=== PATIENT | female | born 1930 | race Caucasian/White ===

== ENCOUNTER 2018-05-13 13:23 | Emergency (ER) | payer OTHER ==
--- NOTE | 2018-05-13 14:18 | RAD REPORT ---
EXAM DESCRIPTION: CT - Ct Stroke Brain Wo Cont - 05/13/2018 2:08 pm CLINICAL HISTORY: off balance/fall x 3 Headache, drowsiness, CVA COMPARISON: No comparisons TECHNIQUE: All CT scans are performed using dose optimization technique as appropriate and may inclu de automated exposure control or mA/KV adjustment according to patient size. FINDINGS: No intracranial hemorrhage, hydrocephalus or extra-axial fluid collection.Mild generalized brain atrophy is present with mild periventricular and deep white matter chronic microvascular ische cayetano changes.No areas of brain edema or evidence of midline shift. The paranasal sinuses and mastoids are clear. The calvarium is intact. IMPRESSION: No acute intracranial abnormality. The findings were discussed with Arcadio Miles in the ER on 05/13/2018 at 2:13 p.m. by telephone.
--- NOTE | 2018-05-13 14:37 | RAD REPORT ---
EXAM DESCRIPTION: RAD - Chest Single View - 05/13/2018 2:30 pm CLINICAL HISTORY: weakness Chest pain. COMPARISON: No comparisons FINDINGS: Portable technique limits examination quality. The lungs are grossly clear. The heart is mildly enlarged in size. No displaced fractures.Aortic athe rosclerosis. IMPRESSION: No acute intrathoracic process suspected.
[2018-05-13 15:04] LABS: Absolute Monocytes 0.9 K/uL (0.1-1.3); Absolute Neutrophil 3.8 K/uL (1.8-8.0); Basophils % 0.9 % (0-1.3); Hematocrit 35.1 % (36.0-45.0); Lymphocytes % 28.3 % (15.3-44.8); MPV 9.7 fL (7.6-11.3); Monocytes % 13.3 % (3.3-12.3); RBC Red Blood Cell Count 4.02 M/uL (3.86-4.86)
[2018-05-13 15:08] LABS: Protime INR 0.89
[2018-05-13 15:10] LABS: Urine Blood NEGATIVE (NEG); Urine Glucose NEGATIVE (NEG); Urine Protein 1+ (NEG)
[2018-05-13 15:22] LABS: BUN Blood Urea Nitrogen 35 mg/dL (7-18); Bicarbonate 27 mmol/L (21-32); CKMB Creatine Kinase MB 3.1 ng/mL (0.3-3.6); Creatine Phosphokinase 81 U/L (26-192); Glucose Level 94 mg/dL (74-106); Magnesium 2.3 mg/dL (1.8-2.4); Potassium 4.2 mmol/L (3.5-5.1); Sodium Level 139 mmol/L (136-145); Troponin (Emerg Dept Use Only) < 0.02 ng/mL (0.0-0.045)
[2018-05-13 15:24] LABS: Urine Bacteria <20 /HPF (<20); Urine Culture Reflex Order NOT NEEDED; Urine RBC NONE SEEN /HPF (NONE SEEN)
[2018-05-13] MEDS ORDERED: NA CHLORIDE 0.9% 250 ML ONE (16:06)
--- NOTE | 2018-05-13 16:44 | EDPHYS ---
Physician Documentation [facility] Name: Crista Ivy Age: 87 yrs Sex: Female : 1930 Arrival Date: 05/13/2018 Time: 13:29 Bed 24 Private MD: ED Physician Bertram Griffith HPI: 05/13 13:52 This 87 yrs old Female presents to ER via Ambulatory with complaints of Fall snw Injury, Dizziness. 13:52 The patient has elevated blood pressure and discovered this at home. Onset: The snw symptoms/episode began/occurred this morning. Modifying factors: The symptoms are aggravated by activity. Details of fall: The patient fell from an upright position, while walking. Onset: The symptoms/episode began/occurred suddenly, this morning. Associated injuries: The patient sustained no obvious injury. Associated signs and symptoms: Pertinent positives: weakness. Severity of symptoms: At their worst the symptoms were mild, moderate. Severity of symptoms: At its worst the blood pressure was 200 mm Hg. The patient has not experienced similar symptoms in the past. It is unknown whether or not the patient has recently seen a physician. Historical: - Allergies: 13:32 No Known Allergies; aa5 - PMHx: 13:32 Hypertension; Hyperlipidemia; TIA; aa5 - PSHx: 13:32 None; aa5 - Immunization history:: Flu vaccine is not up to date. - Ebola Screening: : No symptoms or risks identified at this time. - Social history:: Smoking status: unknown. ROS: 13:52 Constitutional: Negative for fever, chills, and weight loss, Eyes: Negative for injury, snw pain, redness, and discharge, ENT: Negative for injury, pain, and discharge, Neck: Negative for injury, pain, and swelling, Cardiovascular: Negative for chest pain, palpitations, and edema, Respiratory: Negative for shortness of breath, cough, wheezing, and pleuritic chest pain, Abdomen/GI: Negative for abdominal pain, nausea, vomiting, diarrhea, and constipation, Back: Negative for injury and pain, : Negative for injury, bleeding, discharge, and swelling, MS/Extremity: Negative for injury and deformity, Skin: Negative for injury, rash, and discoloration. 13:52 Neuro: Positive for gait disturbance, weakness, fall x 3. Exam: 13:52 Constitutional: This is a well developed, well nourished patient who is awake, alert, snw and in no acute distress. Head/Face: Normocephalic, atraumatic. Eyes: Pupils equal round and reactive to light, extra-ocular motions intact. Lids and lashes normal. Conjunctiva and sclera are non-icteric and not injected. Cornea within normal limits. Periorbital areas with no swelling, redness, or edema. ENT: Nares patent. No nasal discharge, no septal abnormalities noted. Tympanic membranes are normal and external auditory canals are clear. Oropharynx with no redness, swelling, or masses, exudates, or evidence of obstruction, uvula midline. Mucous membranes moist. Neck: Trachea midline, no thyromegaly or masses palpated, and no cervical lymphadenopathy. Supple, full range of motion without nuchal rigidity, or vertebral point tenderness. No Meningismus. Chest/axilla: Normal chest wall appearance and motion. Nontender with no deformity. No lesions are appreciated. Cardiovascular: Regular rate and rhythm with a normal S1 and S2. No gallops, murmurs, or rubs. Normal PMI, no JVD. No pulse deficits. Respiratory: Lungs have equal breath sounds bilaterally, clear to auscultation and percussion. No rales, rhonchi or wheezes noted. No increased work of breathing, no retractions or nasal flaring. Abdomen/GI: Soft, non-tender, with normal bowel sounds. No distension or tympany. No guarding or rebound. No evidence of tenderness throughout. Back: No spinal tenderness. No costovertebral tenderness. Full range of motion. Skin: Warm, dry with normal turgor. Normal color with no rashes, no lesions, and no evidence of cellulitis. MS/ Extremity: Pulses equal, no cyanosis. Neurovascular intact. Full, normal range of motion. 13:52 Neuro: Orientation: appropriate for stated age, Mentation: appropriate for stated age, Memory: appropriate for stated age, Cerebellar function: heel to tenorio testing is normal, Motor: is normal, Gait: not tested. Babinski testing is normal, seizure activity, is not displayed by the patient. Vital Signs: 13:33 BP 168 / 67; Pulse 58; Resp 18 S; Temp 98.2(TE); Pulse Ox 97% on R/A; aa5 14:25 BP 152 / 84; Pulse 54; Resp 19; Pulse Ox 99% on R/A; ca1 15:19 BP 153 / 76; Pulse 53; Resp 19; Pulse Ox 95% on R/A; ca1 16:02 BP 159 / 73; Pulse 57; Resp 19; Pulse Ox 99% on R/A; ca1 16:32 BP 183 / 79; Pulse 54; Resp 19; Pulse Ox 100% on R/A; ca1 17:05 BP 164 / 88; Pulse 57; Resp 19; Pulse Ox 97% on R/A; ca1 NIH Stroke Scale Scores: 13:55 NIHSS Score: 0 snw [place] Coma Score: 13:55 Eye Response: spontaneous(4). Verbal Response: oriented(5). Motor Response: obeys snw commands(6). Total: 15. MDM: 13:32 Patient medically screened. snw 13:55 Data reviewed: vital signs, nurses notes. Data interpreted: Pulse oximetry: on room air snw is 97 %. Interpretation: normal. 05/13 13:52 Order name: Ckmb [facility] 05/13 13:52 Order name: CPK [facility] 05/13 13:52 Order name: Magnesium [facility] 05/13 13:52 Order name: Troponin (emerg Dept Use Only) [facility] 05/13 13:52 Order name: Basic Metabolic Panel; Complete Time: 15:39 snw 05/13 13:52 Order name: CBC with Diff; Complete Time: 15:39 w 05/13 13:52 Order name: Protime (+inr); Complete Time: 15:39 snw 05/13 13:52 Order name: Ptt, Activated; Complete Time: 15:39 snw 05/13 13:52 Order name: Urine Culture [facility] 05/13 13:52 Order name: Urine Microscopic Only; Complete Time: 15:39 snw 05/13 13:52 Order name: Blood Culture* [facility] 05/13 13:52 Order name: CKMB Creatine Kinase MB; Complete Time: 15:39 EDMS 05/13 13:52 Order name: Creatine Phosphokinase; Complete Time: 15:39 EDMS 05/13 13:52 Order name: Magnesium; Complete Time: 15:39 EDMS 05/13 13:52 Order name: CT Stroke Brain w/o Contrast; Complete Time: 14:27 snw 05/13 13:52 Order name: Stroke CXR 1 View; Complete Time: 14:41 snw 05/13 13:52 Order name: EKG; Complete Time: 13:53 snw 05/13 13:52 Order name: Accucheck; Complete Time: 14:07 snw 05/13 13:52 Order name: Cardiac monitoring; Complete Time: 14:07 snw 05/13 13:52 Order name: EKG - Nurse/Tech; Complete Time: 14:07 snw 05/13 13:52 Order name: IV Saline Lock; Complete Time: 14:07 snw 05/13 13:52 Order name: Labs collected and sent; Complete Time: 15:12 snw 05/13 13:52 Order name: NPO; Complete Time: 14:07 snw 05/13 13:52 Order name: O2 Per Protocol; Complete Time: 14:07 snw 05/13 13:52 Order name: O2 Sat Monitoring; Complete Time: 14:07 snw 05/13 13:52 Order name: Cath; Complete Time: 15:12 snw 05/13 13:52 Order name: Troponin (Emerg Dept Use Only); Complete Time: 15:39 EDMS 05/13 14:42 Order name: Glucose, Ancillary Testing; Complete Time: 14:45 EDMS 05/13 15:00 Order name: Urine Dipstick--Ancillary (enter results); Complete Time: 15:39 kj1 05/13 13:52 Order name: Urine Dipstick-Ancillary (obtain specimen); Complete Time: 15:12 snw 05/13 13:52 Order name: FSBS; Complete Time: 14:08 snw Administered Medications: 15:56 Drug: NS 0.9% 250 ml Route: IV; Rate: bolus; Site: right antecubital; ca1 16:30 Follow up: Urine output 130 ml; Response: No adverse reaction; IV Status: Completed ca1 infusion Disposition: 05/14 07:14 Co-signature as Attending Physician, Bertram Griffith MD I agree with the assessment and kdr plan of care. Disposition: 05/13/18 16:44 Discharged to Home. Impression: Fall on same level, unspecified, Renal insufficiency. - Condition is Stable. - Discharge Instructions: Dehydration, Elderly, Fall Prevention in the Home, Rehydration, Elderly. - Medication Reconciliation Form, Thank You Letter, Antibiotic Education, Prescription Opioid Use form. - Follow up: Private Physician; When: 2 - 3 days; Reason: Recheck today's complaints, Continuance of care, Re-evaluation by your physician. Follow up: Emergency Department; When: As needed; Reason: Worsening of condition. NIH Stroke Scale - NIH Stroke Score Date: 05/13/2018 Time: 13:55 Total Score = 0 1a. Level of Consciousness (LOC) - 0(Alert) 1b. Level of Consciousness (LOC) (Year \T\ Age) - 0(Both) 1c. LOC Commands (Open \T\ Closes Eyes/Mobile Home Park Manager) - 0(Both) 2. Best Gaze (Lateral Gaze Paresis) - 0(Normal) 3. Visual Field Loss - 0(No visual loss) 4. Facial Palsy - 0(Normal) 5a. Left Arm: Motor (10-second hold) - 0(No drift) 5b. Right Arm: Motor (10-second hold) - 0(No drift) 6a. Left Leg: Motor (5-second hold - always test supine) - 0(No drift) 6b. Right Leg: Motor (5-second hold - always test supine) - 0(No drift) 7. Limb Ataxia (finger/nose \T\ heel/tenorio - test with eyes open) - 0(Absent) 8. Sensory Loss (pinprick arms/legs/face) - 0(Normal) 9. Best Language: Aphasia (description/naming/reading) - 0(No aphasia) 10. Dysarthria (speech clarity - read or repeat words) - 0(Normal) 11. Extinction and Inattention (visual/tactile/auditory/spatial/personal) - 0(No abnormality) Initials: snw Signatures: Dispatcher [employer] EDMS Bertram Griffith MD MD kdr Ashely Ball, IT SERVICE TECHNICIAN-C IT SERVICE TECHNICIAN-Csnw Carmen Perez, RN RN aa5 Nanci Chung RN RN ca1 Corrections: (The following items were deleted from the chart) 05/13 17:45 16:44 05/13/2018 16:44 Discharged to Home. Impression: Fall on same level, ca1 unspecified; Renal insufficiency. Condition is Stable. Forms are Medication Reconciliation Form, Thank You Letter, Antibiotic Education, Prescription Opioid Use. Follow up: Private Physician; When: 2 - 3 days; Reason: Recheck today's complaints, Continuance of care, Re-evaluation by your physician. Follow up: Emergency Department; When: As needed; Reason: Worsening of condition. snw
--- NOTE | 2018-05-13 16:44 | ER ---
Nurse's Notes [facility] Name: Crista Ivy Age: 87 yrs Sex: Female : 1930 Arrival Date: 05/13/2018 Time: 13:29 Bed 24 Private MD: Diagnosis: Fall on same level, unspecified;Renal insufficiency Presentation: 05/13 13:32 Presenting complaint: Patient states: "I woke up dizzy today and I fell three times aa5 today". Pt denies LOC, denies head injury. 13:32 Care prior to arrival: None. Mechanism of Injury: Fall from standing position. Trauma aa5 event details: Injury occurred in the [facility], Injury occurred: at home. Injury occurred: May 13, 2018. 13:32 Acuity: RENETTA 3 aa5 13:32 Method Of Arrival: Ambulatory aa5 13:32 Transition of care: patient was not received from another setting of care. Onset of aa5 symptoms was May 13, 2018. 13:44 Initial Sepsis Screen: Does the patient meet any 2 criteria? No. Patient's initial ca1 sepsis screen is negative. Does the patient have a suspected source of infection? No. Patient's initial sepsis screen is negative. 13:44 Risk Assessment: Do you want to hurt yourself or someone else? Patient reports no ca1 desire to harm self or others. Historical: - Allergies: 13:32 No Known Allergies; aa5 - PMHx: 13:32 Hypertension; Hyperlipidemia; TIA; aa5 - PSHx: 13:32 None; aa5 - Immunization history:: Flu vaccine is not up to date. - Ebola Screening: : No symptoms or risks identified at this time. - Social history:: Smoking status: unknown. Screenin:44 Abuse screen: Denies threats or abuse. Denies injuries from another. Nutritional ca1 screening: No deficits noted. Tuberculosis screening: No symptoms or risk factors identified. Fall Risk Fall in past 12 months (25 points). IV access (20 points). Ambulatory Aid- Crutches/Cane/Walker (15 pts). Assessment: 13:44 General: Appears in no apparent distress. comfortable, Behavior is calm, cooperative, ca1 appropriate for age. Pain: Denies pain. Neuro: Level of Consciousness is awake, alert, obeys commands, Oriented to person, place, time, situation, Reports dizziness, this morning. Neuro: Shoe Worker are equal bilaterally Moves all extremities. Speech is normal, Facial symmetry appears normal, Pupils are PERRLA, Intact. Cardiovascular: Heart tones S1 S2 present Capillary refill < 3 seconds Patient's skin is warm and dry. Respiratory: Airway is patent Respiratory effort is even, unlabored, Respiratory pattern is regular, symmetrical, Breath sounds are clear bilaterally. GI: Abdomen is round non-distended, Bowel sounds present X 4 quads. Abd is soft and non tender X 4 quads. Abd is non tender X 4 quads. : No deficits noted. No signs and/or symptoms were reported regarding the genitourinary system. EENT: No deficits noted. No signs and/or symptoms were reported regarding the EENT system. Derm: Skin is intact, is healthy with good turgor, Skin is pink, warm \\T\\ dry. Musculoskeletal: Circulation, motion, and sensation intact. Capillary refill < 3 seconds. 14:10 Reassessment: [facility] at [facility] 14:25 Reassessment: Patient appears in no apparent distress at this time. Patient and/or ca1 family updated on plan of care and expected duration. Pain level reassessed. Patient is alert, oriented x 3, equal unlabored respirations, skin warm/dry/pink. Pt back from CT scan. 14:55 Reassessment: Patient appears in no apparent distress at this time. Patient and/or ca1 family updated on plan of care and expected duration. Pain level reassessed. Patient is alert, oriented x 3, equal unlabored respirations, skin warm/dry/pink. Ashely Ball, SENIOR WRITER at bedside. Pt with daughters at bedside. 16:32 Reassessment: Assisted pt to ambulate around room with a cane. Pt requested to go to ca1 restroom, ambulated with assist to restroom and back to bed. Pt tolerated well, did NOT complain of dizziness during ambulation. Pt reported of weakness than usual today. Pt reported of diarrhea 2-3 days ago which wasted 2.5 days and described stool as soft and a little watery. Informed provider. 17:00 Reassessment: Patient appears in no apparent distress at this time. Patient and/or ca1 family updated on plan of care and expected duration. Pain level reassessed. Patient is alert, oriented x 3, equal unlabored respirations, skin warm/dry/pink. Informed pt of discharge. Instructed to call daughters. Will give discharge papers once daughters are back. 17:30 Reassessment: Patient appears in no apparent distress at this time. No changes from ca1 previously documented assessment. Patient is alert, oriented x 3, equal unlabored respirations, skin warm/dry/pink. Still waiting on daughter. Vital Signs: 13:33 BP 168 / 67; Pulse 58; Resp 18 S; Temp 98.2(TE); Pulse Ox 97% on R/A; aa5 14:25 BP 152 / 84; Pulse 54; Resp 19; Pulse Ox 99% on R/A; ca1 15:19 BP 153 / 76; Pulse 53; Resp 19; Pulse Ox 95% on R/A; ca1 16:02 BP 159 / 73; Pulse 57; Resp 19; Pulse Ox 99% on R/A; ca1 16:32 BP 183 / 79; Pulse 54; Resp 19; Pulse Ox 100% on R/A; ca1 17:05 BP 164 / 88; Pulse 57; Resp 19; Pulse Ox 97% on R/A; ca1 [place] Coma Score: 13:55 Eye Response: spontaneous(4). Verbal Response: oriented(5). Motor Response: obeys snw commands(6). Total: 15. NIH Stroke Scale Scores: 13:55 NIHSS Score: 0 snw ED Course: 13:29 Patient arrived in ED. mr 13:30 Nanci Chung, RN is Primary Nurse. ca1 13:30 Ashely Ball FNP-C is PHCP. snw 13:30 Bertram Grififth MD is Attending Physician. snw 13:31 Arm band placed on Patient placed in an exam room, on a stretcher. aa5 13:37 Triage completed. aa5 13:44 Patient has correct armband on for positive identification. Placed in gown. Bed in low ca1 position. Call light in reach. Side rails up X 1. equipment monitor phototypesetting on. Pulse ox on. NIBP on. Warm blanket given. 14:06 Ckmb Sent. jp3 14:06 CPK Sent. jp3 14:07 Magnesium Sent. jp3 14:08 CT completed. Patient tolerated procedure well. Patient moved to CT via stretcher. sj Patient moved back from CT. 14:09 CT Stroke Brain w/o Contrast In Process Unspecified. EDMS 14:29 X-ray completed. Patient tolerated procedure well. Patient moved to radiology via sw stretcher. Patient moved back from radiology. 14:30 Stroke CXR 1 View In Process Unspecified. EDMS 14:32 Inserted saline lock: 20 gauge in right antecubital area, using aseptic technique. ca1 Blood collected. 14:32 First set of blood cultures drawn by me. ca1 14:50 Urine collected: straight cath specimen, clear, Amount Returned: 120mL. ca1 14:50 Straight cath inserted, using sterile technique, 16 Fr. Specimen obtained. Returned ca1 clear yellow urine. Patient tolerated well. 14:55 Second set of blood cultures drawn by me. ca1 16:04 No provider procedures requiring assistance completed. ca1 17:40 IV discontinued, intact, bleeding controlled, No redness/swelling at site. Pressure ca1 dressing applied. Administered Medications: 15:56 Drug: NS 0.9% 250 ml Route: IV; Rate: bolus; Site: right antecubital; ca1 16:30 Follow up: Urine output 130 ml; Response: No adverse reaction; IV Status: Completed ca1 infusion Output: 16:30 Urine: 130ml; Total: 130ml. ca1 Outcome: 16:44 Discharge ordered by . snw 17:40 Discharged to home via wheelchair, with family, daughter ca1 17:40 Condition: stable 17:40 Discharge instructions given to patient, family, Instructed on discharge instructions, follow up and referral plans. Demonstrated understanding of instructions, follow-up care. 17:45 Patient left the ED. ca1 NIH Stroke Scale - NIH Stroke Score Date: 05/13/2018 Time: 13:55 Total Score = 0 1a. Level of Consciousness (LOC) - 0(Alert) 1b. Level of Consciousness (LOC) (Year \\T\\ Age) - 0(Both) 1c. LOC Commands (Open \\T\\ Closes Eyes/Miner Operator) - 0(Both) 2. Best Gaze (Lateral Gaze Paresis) - 0(Normal) 3. Visual Field Loss - 0(No visual loss) 4. Facial Palsy - 0(Normal) 5a. Left Arm: Motor (10-second hold) - 0(No drift) 5b. Right Arm: Motor (10-second hold) - 0(No drift) 6a. Left Leg: Motor (5-second hold - always test supine) - 0(No drift) 6b. Right Leg: Motor (5-second hold - always test supine) - 0(No drift) 7. Limb Ataxia (finger/nose \\T\\ heel/tenorio - test with eyes open) - 0(Absent) 8. Sensory Loss (pinprick arms/legs/face) - 0(Normal) 9. Best Language: Aphasia (description/naming/reading) - 0(No aphasia) 10. Dysarthria (speech clarity - read or repeat words) - 0(Normal) 11. Extinction and Inattention (visual/tactile/auditory/spatial/personal) - 0(No abnormality) Initials: snw Signatures: Dispatcher [employer] EDMS Ashely Ball, LIBRARY TECHNICIAN-C LIBRARY TECHNICIAN-Csnw Smitha Clark, Carmen Little, RN RN [email or web address] Brandi Fernández Jacob jp3 Nanci Chung RN RN ca1 Corrections: (The following items were deleted from the chart) 15:02 14:32 First set of blood cultures drawn ca1 ca1
--- NOTE | 2018-05-13 17:07 | EKG ---
Test Date: 2018-05-13 Test Time: 13:41:57 Teradata Architect: KENDRICK MEASUREMENT RESULTS: Intervals: Rate: 54 TN: 176 QRSD: 84 QT: 432 QTc: 409 [place]: P: 51 TN: 176 QRS: 37 T: 4 INTERPRETIVE STATEMENTS: Sinus bradycardia Inferior infarct, age undetermined Abnormal ECG No previous ECG available for comparison Electronically Signed On 05-13-18 17:06:34 CDT by Mars Desai
== END 2018-05-13 17:45 | disposition home or self-care (01) ==
LOC: ER 13:23
DX: N28.9 Disorder of kidney and ureter, unspecified (principal); W18.30XA Fall on same level, unspecified, initial encounter; Y93.01 Activity, walking, marching and hiking; R42 Dizziness and giddiness; I10 Essential (primary) hypertension; E78.5 Hyperlipidemia, unspecified; Z86.73 Personal history of transient ischemic attack (TIA), and cerebral infarction without residual deficits
CPT/HCPCS: 36415; 51702; 70450; 71045; 80048; 81003; 81015; 82550; 82553; 82962; 83735; 84484; 85025; 85610; 85730; 87040; 87086; 87088; 93005; 96360; 96365; 99285

== ENCOUNTER 2019-10-10 11:11 | Inpatient (IN) | payer MEDICARE, OTHER ==
--- OUTSIDE RECORDS SUMMARY | 2019-10-10 11:30 | XMS REPORT | Continuity of Care Document ---
:1930 Author Organization [facility] t Address [facility] [place] [address] Care Team Providers Name Role Phone SVEN DEREK Attending Clinician Unavailable Problems This patient has no known problems. Allergies, Adverse Reactions, Alerts This patient has no known allergies or adverse reactions. Social History Social Habit Start Date Stop Date Quantity Comments Source Sex Assigned At [facility] Alcohol Comment 2018-09-07 2018-09-07 Every other day [facility] - 00:00:00 00:00:00 [facility] Smoking Status Start Date Stop Date Source Never smoker [facility] Medications Ordered Filled Start Stop Current Ordering Indication Dosage Frequency Signature Comments Components Source Medication Medication Date Date Medication? Clinician (SIG) Name Name coenzyme 2019 Yes 1{capsu QD Take [address] [facility] Q10 (CO 7-16 le} capsule by [facility]) 200 21:14: mouth Medical mg capsule 37 daily. Kamrar omega-3 Yes 1{capsu QD Take 1 [facility] fatty 7-16 le} capsule by kes acids-fish 21:14: mouth Medica l oil (FISH 36 daily. Kamrar OIL) 360-1,200 mg Cap allopurinol Yes 100mg QD Take [address] [facility] (ZYLOPRIM) 7-16 mg by [facility] - 100 MG 21:06: mouth Medical tablet 27 daily. [facility] furosemide Yes 20mg QD Take [address] [facility] (LASIX) 20 7-16 by mouth [facility] - MG tablet 00:00: daily. Medica l 00 Kamrar potassium 2018- Yes 10meq QD Take [address] [facility] chloride SA 7-16 mEq by [facility] - (K-DUR,KLOR 00:00: mouth Medic al -CON) 10 00 daily. Kamrar MEQ tablet gabapentin Yes 100mg QD Take [address] [facility] [address] [facility] (NEURONTIN) 6-12 mg by [facility] - 100 MG 00:00: mouth Medical capsule 00 daily. [facility] ezetimibe 0 Yes 10mg QD Take [address] [facility] [address] [facility] (ZETIA) 10 5-06 by mouth [facility] - mg tablet 00:00: daily. Medica l 00 [facility] amLODIPine Yes 5mg QD Take [address] [facility] [address] [facility] (NORVASC) 5 5-02 by mouth [facility] - MG tablet 00:00: daily. Medica l 00 [facility] hydroCHLORO 0 Yes 25mg QD Take [address] [facility] thiazide 5-02 by mouth [facility] - (HYDRODIURI 00:00: daily. Medi tari L) 25 MG 00 Center tablet hydrALAZINE 0 Yes 10mg Q.5D Take [address] [facility] (APRESOLINE 3-03 by mouth 2 Sven kes - ) 10 MG 00:00: (two) Medical tablet 00 times Center daily. metoprolol Yes 100mg QD Take [address] [facility] [address] [facility] (TOPROL-XL) 3-03 mg by [facility] - 100 MG 24 00:00: mouth Medical hr tablet 00 daily. [facility] cloNIDine Yes .1mg Take 0.[address] [facility] HCl 7-06 mg by [facility] - (CATAPRES) 00:00: mouth as Med ical 0.1 MG 00 needed. Kamrar tablet colchicine 0 Yes .6mg Take 0.[address] [facility] (COLCRYS) 3-06 mg by [facility] - 0.6 mg 00:00: mouth as Medical tablet 00 needed. Center Procedures This patient has no known procedures. Results Test Description Test Time Test Comments Results Result [facility] e Comments VENOUS DOPPLER 2018-09-07 Reason for FINAL REPORT PATIENT LEGS, BILATERAL 23:17:00 exam:->LEG ID: [id number] SWELLING EXAMINATION: BILATERAL LOWER EXTREMITY VENOUS DUPLEX/DOPPLER CLINICAL INDICATION: LEG PAIN AND SWELLING. TECHNIQUE: Grayscale, color flow and Doppler spectral imaging of the lower extremity veins with compression and augmentation FINDINGS: Right lower extremity: Doppler evaluation demonstrates patent deep veins where visible with normal color flow, compression and augmentation. No evidence of a deep venous thrombosis where imaged. Left lower extremity: Doppler evaluation demonstrates patent deep veins where visible with normal color flow, compression and augmentation. No evidence of a deep venous thrombosis where imaged. IMPRESSION: No sonographic evidence of a lower extremity DVT. Signed: Flako Cabrera MDReport Verified Date/Time: 09/07/2018 23:17:28 Reading Location: [address] Reading Room /APTT 2018-09-07 22:00:00 Test Item Value Reference Range Interpretation Comme nts PROTIME (BEAKER) (test code = 759) 9.8 sec 9.3-12.0 INR (BEAKER) (test code = 370) 0.9 <=5.9 PARTIAL THROMBOPLASTIN TIME (BEAKER) (test code = 760) 25.6 sec 23.0-35.0 RECOMMENDED COUMADIN/WARFARIN INR THERAPY RANGESSTANDARD DOSE: 2.0 - 3.0 Includes: PROPHYLAXIS forvenous thrombosis, systemic embolization; TREATMENT for venous thrombosis and/or pulmonary embolus.HIGH RISK: Target INR is 2.5-3.5 for patients with mechanical heart valves.Final Information (Auto Output)Final Information (Auto Output)Final Information (Auto Output)B-TYPE NATRIURETIC FACTOR (BNP)2018-09-07 21:57:00 Test Item Value Reference Range Interpretation Comments B-TYPE NATRIURETIC PEPTIDE (BEAKER) 148 pg/mL 0-100 H (test code = 700) TROPONIN [id number] 21:56:00 Test Item Value Reference Range Interpretation Comments TROPONIN I (BEAKER) (test code = 397) < ng/mL 0.00-0.15 Troponin I (TnI) levels must be interpreted in the context of the presenting symptoms and the clinical findings. Elevated TnI levels indicate myocardial damage, but are not specific for ischemic heart disease. Elevated TnI levels are seen in patients with other cardiac conditions (including myocarditis and congestive heart failure), and slight TnI elevations occur in patients with other conditions, including sepsis, renal failure, acidosis, acute neurological disease, and persistent tachyarrhythmia.COMPREHENSIVE METABOLIC [id number] 21:51:00 Test Item Value Reference Range Interpretation Comments TOTAL PROTEIN 7.6 gm/dL 6.0-8.5 (BEAKER) (test code = 770) ALBUMIN (BEAKER) 4.2 g/dL 3.5-5.0 (test code = 1145) ALKALINE PHOSPHATASE 92 U/L 30-115 (BEAKER) (test code = 346) BILIRUBIN TOTAL 0.4 mg/dL 0.1-1.2 (BEAKER) (test code = 377) SODIUM (BEAKER) 138 meq/L 135-148 (test code = 381) POTASSIUM (BEAKER) 4.2 meq/L 3.6-5.5 (test code = 379) CHLORIDE (BEAKER) 101 meq/L 98-106 (test code = 382) CO2 (BEAKER) (test 23 meq/L 20-29 code = 355) BLOOD UREA NITROGEN 46 mg/dL 10-26 H (BEAKER) (test code = 354) CREATININE (BEAKER) 2.52 mg/dL 0.50-1.20 H (test code = 358) GLUCOSE RANDOM 115 mg/dL 70-110 H (BEAKER) (test code = 652) CALCIUM (BEAKER) 9.9 mg/dL 8.5-10.5 (test code = 697) AST (SGOT) (BEAKER) 23 U/L 5-40 (test code = 353) ALT (SGPT) (BEAKER) 19 U/L 5-50 (test code = 347) EGFR (BEAKER) (test mL/min/1.73 INSUFFIC IENT code = 1092) sq m CLINICAL DATA T O CALCULATE ESTIM ATED GFR. CBC W/PLT COUNT & AUTO [id number] 21:28:00 Test Item Value Reference Range Interpretation Comments WHITE BLOOD CELL COUNT (BEAKER) 10.0 K/ L 4.0-10.0 (test code = 775) RED BLOOD CELL COUNT (BEAKER) 3.96 M/ L 4.00-5.00 L (test code = 761) HEMOGLOBIN (BEAKER) (test code = 11.1 GM/DL 12.0-15.5 L 410) HEMATOCRIT (BEAKER) (test code = 35.1 % 36.0-46.0 L 411) MEAN CORPUSCULAR VOLUME (BEAKER) 88.6 fL 82.0-99.0 (test code = 753) MEAN CORPUSCULAR HEMOGLOBIN 28.0 pg 27.0-33.0 (BEAKER) (test code = 751) MEAN CORPUSCULAR HEMOGLOBIN CONC 31.6 GM/DL 32.0-36.0 L (BEAKER) (test code = 752) RED CELL DISTRIBUTION WIDTH 15.8 % 12.0-15.0 H (BEAKER) (test code = 412) PLATELET COUNT (BEAKER) (test 299 K/CU MM 150-430 code = 756) MEAN PLATELET VOLUME (BEAKER) 11.0 fL 6.0-11.5 (test code = 754) NUCLEATED RED BLOOD CELLS 0 /100 WBC 0-0 (BEAKER) (test code = 413) NEUTROPHILS RELATIVE PERCENT 59 % (BEAKER) (test code = 429) LYMPHOCYTES RELATIVE PERCENT 32 % (BEAKER) (test code = 430) MONOCYTES RELATIVE PERCENT 8 % (BEAKER) (test code = 431) EOSINOPHILS RELATIVE PERCENT 1 % (BEAKER) (test code = 432) BASOPHILS RELATIVE PERCENT 1 % (BEAKER) (test code = 437) NEUTROPHILS ABSOLUTE COUNT 5.88 K/ L 1.80-8.00 (BEAKER) (test code = 670) LYMPHOCYTES ABSOLUTE COUNT 3.18 K/ L 1.48-4.50 (BEAKER) (test code = 414) MONOCYTES ABSOLUTE COUNT (BEAKER) 0.82 K/ L 0.00-1.30 (test code = 415) EOSINOPHILS ABSOLUTE COUNT 0.07 K/ L 0.00-0.50 (BEAKER) (test code = 416) BASOPHILS ABSOLUTE COUNT (BEAKER) 0.05 K/ L 0.00-0.20 (test code = 417) IMMATURE GRANULOCYTES-RELATIVE 0 % 0-0 PERCENT (BEAKER) (test code = 2112)
--- OUTSIDE RECORDS SUMMARY | 2019-10-10 11:30 | XMS REPORT | Clinical Summary ---
:1930 Author Organization [facility] Address [address] [place] [address] Care Team Providers Name Role Phone Unavailable Primary Care Provider Unavailable Allergies No Known Allergies Medications Medication Sig Dispensed Refills Start Date End Date Status allopurinol (ZYLOPRIM) 100 Take 100 mg by 0 Active MG tablet mouth daily. amLODIPine (NORVASC) 5 MG Take 5 mg by 0 06/24/2018 Active tablet mouth daily. cloNIDine HCl (CATAPRES) Take 0.1 mg by 0 08/28/2017 Active 0.1 MG tablet mouth as needed. colchicine (COLCRYS) 0.6 Take 0.6 mg by 0 04/28/2017 Active mg tablet mouth as needed. ezetimibe (ZETIA) 10 mg Take 10 mg by 0 06/28/2018 Active tablet mouth daily. furosemide (LASIX) 20 MG Take 20 mg by 0 09/07/2018 Active tablet mouth daily. gabapentin (NEURONTIN) 100 Take 100 mg by 0 08/05/19 19 Active MG capsule mouth daily. hydrALAZINE (APRESOLINE) Take 10 mg by 0 04/25/2018 Active 10 MG tablet mouth 2 (two) times daily. hydroCHLOROthiazide Take 25 mg by 0 06/24/2018 Active (HYDRODIURIL) 25 MG tablet mouth daily. metoprolol (TOPROL-XL) 100 Take 100 mg by 0 04/26/19 19 Active MG 24 hr tablet mouth daily. omega-3 fatty acids-fish Take 1 capsule 0 Active oil (FISH OIL) 360-1,200 by mouth mg Cap daily. potassium chloride SA Take 10 mEq by 0 09/07/2018 Active (K-DUR,KLOR-CON) 10 MEQ mouth daily. tablet coenzyme Q10 (CO Q-10) 200 Take 1 capsule 0 Active mg capsule by mouth daily. Active Problems Not on file Social History Tobacco Use Types Packs/Day Years Used Date Never Smoker Smokeless Tobacco: Never Used Alcohol Use Drinks/Week oz/Week Comments Yes 1 Glasses of wine 0.6 Every other da y Sex Assigned at Date Recorded Not on file Job Start Date Occupation Industry Not on file Not on file Not on file Travel History Travel Start Travel End No recent travel history available. Last Filed Vital Signs Not on file Plan of Treatment Not on file Results Not on fileafter 10/09/2018 Insurance Payer Benefit Plan / Group Subscriber ID Type Phone A ddress [employer] ADV xxxxxxxxxxxx
[2019-10-10 11:57] LABS: Absolute Lymphocytes (CBC) 1.7 K/uL (0.7-4.9); Hematocrit 33.8 % (36.0-45.0); Lymphocytes % 20.2 % (15.3-44.8); MPV 9.3 fL (7.6-11.3); RBC Red Blood Cell Count 3.85 M/uL (3.86-4.86)
[2019-10-10] MEDS ORDERED: MECLIZINE HCL 12.5 MG TAB ONE (12:00)
[2019-10-10 12:08] LABS: Protime INR 0.91
[2019-10-10 12:15] LABS: BUN Blood Urea Nitrogen 35 mg/dL (7-18); Bicarbonate 24 mmol/L (21-32); Glucose Level 133 mg/dL (74-106); Magnesium 2.4 mg/dL (1.8-2.4); Potassium 3.9 mmol/L (3.5-5.1); Sodium Level 140 mmol/L (136-145); Troponin (Emerg Dept Use Only) < 0.02 ng/mL (0.0-0.045)
--- NOTE | 2019-10-10 12:19 | RAD REPORT ---
EXAM DESCRIPTION: CT - Head Brain Wo Cont - 10/10/2019 12:10 pm CLINICAL HISTORY: Dizziness COMPARISON: 2019 TECHNIQUE: Computed axial tomography of the head was obtained. IV contrast was not requested. All CT scans are performed using dose optimization technique as appropriate and may include automated exposure control or mA/KV adjustment according to patient size. FINDINGS: An intracranial bleed is not seen . The ventricles are normal in caliber. No extra-axial fluid collection is noted. Mild to moderate low-density areas within periventricular, deep and subcortical white matter likely r epresent ischemic changes secondary to small vessel disease. Fluid within the sinuses/ mastoids is not seen. IMPRESSION: No acute intracranial abnormality is seen. If patient's symptoms persist MRI of the bra in would be recommended.
--- NOTE | 2019-10-10 13:29 | RAD REPORT ---
EXAM DESCRIPTION: Roman Single View10/10/2019 12:50 pm CLINICAL HISTORY: Shortness of breath COMPARISON: 2019 FINDINGS: The lungs appear clear of acute infiltrate. The heart is mildly enlarged IMPRESSION: No acute abnormalities displayed
--- NOTE | 2019-10-10 13:54 | ER ---
Nurse's Notes [facility] Name: Crista Ivy Age: 89 yrs Sex: Female : 1930 Arrival Date: 10/10/2019 Time: 11:16 Bed 23 Private MD: Diagnosis: Dizziness and giddiness;Vertigo Presentation: 10/09 11:24 Chief complaint: Patient states: dizziness and malaise since Thursday. Dr. Ansari recommended patient come to ED for further evaluation. Pt reports she has been on antibiotics for cellulitis to her LL extremity, but they do no have seemed to work. Denies fever, cough and/ or SOB. Coronavirus screen: Client denies travel out of the [place] in the last 14 days. At this time, the client does not indicate any symptoms associated with coronavirus-19. Ebola Screen: Patient denies exposure to infectious person. Patient denies travel to an Ebola-affected area in the 21 days before illness onset. Initial Sepsis Screen: Does the patient meet any 2 criteria? No. Patient's initial sepsis screen is negative. Does the patient have a suspected source of infection? Yes: Skin breakdown/wound. Risk Assessment: Do you want to hurt yourself or someone else? Patient reports no desire to harm self or others. Onset of symptoms was October 07, 2019. 11:24 Method Of Arrival: EMS: [facility] 11:24 Acuity: RENETTA 3 11:35 Care prior to arrival: IV initiated. 20 GA, in the right wrist, Glucose check: 150 ss Oxygen administered. via nasal cannula. Historical: - Allergies: 11: No Known Allergies; ss - Home Meds: 11:31 furosemide 40 mg Oral tab 1 tab once daily [Active]; metoprol Succinate ER 100 mg ss [Active]; gabapentin 100 mg oral cap [Active]; ezetimibe oral 10 mg oral [Active]; hydralazine 10 mg Oral tab [Active]; allopurinol 100 mg Oral tab [Active]; amlodipine 5 mg tab [Active]; - PMHx: 11:31 Hyperlipidemia; Hypertension; TIA; ss - Immunization history:: Adult Immunizations up to date. - Social history:: Smoking status: Patient denies any tobacco usage or history of. - Family history:: not pertinent. - Hospitalizations: : No recent hospitalization is reported. Screenin:32 Abuse screen: Denies threats or abuse. Denies injuries from another. Nutritional ss screening: No deficits noted. Tuberculosis screening: Never had TB. Fall Risk No fall in past 12 months (0 pts). Secondary diagnosis (15 points) dizziness. IV access (20 points). Ambulatory Aid- None/Bed Rest/Nurse Assist (0 pts). Gait- Normal/Bed Rest/Wheelchair (0 pts) Mental Status- Oriented to own ability (0 pts). Assessment: 11:32 General: Appears in no apparent distress. comfortable, Behavior is calm, cooperative. ss General: Reports fatigue for x 4 days. Denies fever, feeling ill, chills. Pain: Denies pain. Neuro: Level of Consciousness is awake, alert, obeys commands, Oriented to person, place, time, situation, Moves all extremities. Full function Speech is normal, Facial symmetry appears normal, Pupils are PERRLA, Reports intermittent dizziness x 4 days, especially with repositioning.. Cardiovascular: Capillary refill < 3 seconds is brisk in bilateral fingers. Cardiovascular: Pulses are palpable in right radial artery, right dorsalis pedis artery, left radial artery and left dorsalis pedis artery. Respiratory: Airway is patent Respiratory effort is even, unlabored, Respiratory pattern is regular, symmetrical, Breath sounds are clear bilaterally. Denies cough, shortness of breath. GI: Abdomen is non-distended, Patient currently denies diarrhea, nausea, vomiting. : No signs and/or symptoms were reported regarding the genitourinary system. Denies burning with urination, urinary frequency. EENT: Oral mucosa is moist. Derm: Skin is intact, is healthy with good turgor, Skin is Redness observed to L lower extremity. PT reports this has been ongoing. Recently completed oral antibiotics which did not seem to help. Musculoskeletal: Circulation, motion, and sensation intact. Range of motion: intact in all extremities, Swelling absent. 12:06 Reassessment: Pt to CT VIA wheelchair. ss 12:24 Reassessment: Patient appears in no apparent distress at this time. Patient and/or ss family updated on plan of care and expected duration. Pain level reassessed. Patient is alert, oriented x 3, equal unlabored respirations, skin warm/dry/pink. Patient denies pain at this time. 13:46 Reassessment: Assisted patient to restroom. Pt reports dizziness upon repositioning/ ss standing. Dr. Braswell notified. 15:17 Reassessment: Report called to MARÍA ELENA ELIZONDO. Vital Signs: 11:24 BP 174 / 96; Pulse 74; Resp 19; Temp 97.6; Pulse Ox 98% on R/A; Weight 79.38 kg; Height ss 5 ft. 5 in. (165.10 cm); Pain 0/10; 12:24 BP 180 / 87; Pulse 70; Resp 18; Pulse Ox 100% ; Pain 0/10; ss 13:46 BP 189 / 90; Pulse 66; Resp 16; Pulse Ox 95% on R/A; ss 15:14 BP 154 / 80; Pulse 87; Resp 16; Pulse Ox 98% on R/A; Pain 0/10; ss 11:24 Body Mass Index 29.12 (79.38 kg, 165.10 cm) ED Course: 11:16 Patient arrived in ED. iw 11:21 Mo Braswell MD is Attending Physician. rn 11:30 Triage completed. ss 11:31 Arm band placed on right wrist. ss 11:32 Patient has correct armband on for positive identification. Bed in low position. Call ss light in reach. Side rails up X 1. monitoring and evaluation advisor on. Pulse ox on. NIBP on. 11:32 Patient maintains SpO2 saturation greater than 95% on room air. ss 11:47 Radha Vasquez, MARÍA ELENA is Primary Nurse. ss 11:47 Inserted saline lock: 20 gauge in right antecubital area, using aseptic technique. ss Blood collected. 12:11 CT Head Brain wo Cont In Process Unspecified. EDMS 12:50 XRAY Chest (1 view) In Process Unspecified. EDMS 13:53 Pavel Lebron MD is Hospitalizing Provider. rn 15:17 No provider procedures requiring assistance completed. Patient admitted, IV remains in ss place. Administered Medications: 11:55 Drug: Meclizine 50 mg Route: PO; ss 15:20 Follow up: Response: No adverse reaction; No change in condition ss Outcome: 13:53 Decision to Hospitalize by Provider. rn 15:17 Discharged to 15:17 Condition: stable 15:17 Instructed on the need for admit. 15:20 Patient left the ED. Signatures: Dispatcher [employer] EDTanika Belle RN RN iw Mo Braswell MD MD rn Radha Vasquez, MARÍA ELENA RN ss
--- NOTE | 2019-10-10 13:54 | EDPHYS ---
Physician Documentation [facility] Name: Crista Ivy Age: 89 yrs Sex: Female : 1930 Arrival Date: 10/10/2019 Time: 11:16 Bed 23 Private MD: ED Physician Mo Braswell HPI: 10/09 11:59 This 89 yrs old Female presents to ER via EMS with complaints of Dizziness. rn 11:59 The patient presents with dizziness. rn 11:59 Onset: The symptoms/episode began/occurred 3 day(s) ago. Modifying factors: The rn symptoms are alleviated by nothing, the symptoms are aggravated by standing up, changing position. Severity of symptoms: At their worst the symptoms were moderate in the emergency department the symptoms have improved. The patient has not experienced similar symptoms in the past. The patient has been recently seen by a physician:. Reports dizziness, worse with changing position, began 3-4 days ago, recently finished abx for leg infection, not totally back to normal. No head injury. No assoc focal neuro complaints otherwise. Had TIA in past but was speech problem at that time. No vomiting. Better when holding head still. . Historical: - Allergies: 11:31 No Known Allergies; ss - Home Meds: 11:31 furosemide 40 mg Oral tab 1 tab once daily [Active]; metoprol Succinate ER 100 mg ss [Active]; gabapentin 100 mg oral cap [Active]; ezetimibe oral 10 mg oral [Active]; hydralazine 10 mg Oral tab [Active]; allopurinol 100 mg Oral tab [Active]; amlodipine 5 mg tab [Active]; - PMHx: 11:31 Hyperlipidemia; Hypertension; TIA; ss - Immunization history:: Adult Immunizations up to date. - Social history:: Smoking status: Patient denies any tobacco usage or history of. - Family history:: not pertinent. - Hospitalizations: : No recent hospitalization is reported. ROS: 11:59 Constitutional: Negative for fever, chills, and weight loss, Eyes: Negative for injury, rn pain, redness, and discharge, Neck: Negative for injury, pain, and swelling, Cardiovascular: Negative for chest pain, palpitations, and edema, Respiratory: Negative for shortness of breath, cough, wheezing, and pleuritic chest pain, Abdomen/GI: Negative for abdominal pain, nausea, vomiting, diarrhea, and constipation, MS/Extremity: Negative for injury and deformity, Skin: Negative for injury, rash, and discoloration, Neuro: Negative for headache, weakness, numbness, tingling, and seizure. Exam: 11:59 Constitutional: This is a well developed, well nourished patient who is awake, alert, rn and in no acute distress. Head/Face: Normocephalic, atraumatic. Cardiovascular: Regular rate and rhythm. No pulse deficits. Respiratory: No increased work of breathing, no retractions or nasal flaring. Abdomen/GI: soft, non-tender Skin: Warm, dry MS/ Extremity: Pulses equal, no cyanosis. Neurovascular intact. Full, normal range of motion. Equal circumference. Neuro: Awake and alert, GCS 15, oriented to person, place, time, and situation. Cranial nerves II-XII grossly intact. Motor strength 5/5 in all extremities. Sensory grossly intact. Vital Signs: 11:24 BP 174 / 96; Pulse 74; Resp 19; Temp 97.6; Pulse Ox 98% on R/A; Weight 79.38 kg; Height ss 5 ft. 5 in. (165.10 cm); Pain 0/10; 12:24 BP 180 / 87; Pulse 70; Resp 18; Pulse Ox 100% ; Pain 0/10; ss 13:46 BP 189 / 90; Pulse 66; Resp 16; Pulse Ox 95% on R/A; ss 15:14 BP 154 / 80; Pulse 87; Resp 16; Pulse Ox 98% on R/A; Pain 0/10; ss 11:24 Body Mass Index 29.12 (79.38 kg, 165.10 cm) MDM: 11:21 Patient medically screened. rn 13:50 Differential diagnosis: CVA, generalized weakness, near-syncope, TIA, vertigo. Data rn reviewed: vital signs, nurses notes, lab test result(s), EKG, radiologic studies, CT scan, and as a result, I will admit patient. Counseling: I had a detailed discussion with the patient and/or guardian regarding: the historical points, exam findings, and any diagnostic results supporting the discharge/admit diagnosis, lab results, radiology results, the need for further work-up and treatment in the hospital. Response to treatment: There is no appreciated change of the patient's symptoms at this time. Admission orders: after a detailed discussion of the patient's condition and case, the admit orders are written by me. ED course: CT head neg, labs unremarkable for acute changes, admitted to Dr. Lebron after failed ambulation, still dizzy and unable to ambulate without assistance, almost fell. Will admit for MRI and neuro consult. . 10/09 11:32 Order name: Basic Metabolic Panel; Complete Time: 13:33 10/09 11:32 Order name: CBC with Diff; Complete Time: 13:33 10/09 11:32 Order name: Magnesium; Complete Time: 13:33 10/09 11:32 Order name: Protime (+inr); Complete Time: 13:33 10/09 11:32 Order name: Ptt, Activated; Complete Time: 13:33 10/09 11:32 Order name: Troponin (emerg Dept Use Only); Complete Time: 13:33 10/09 14:06 Order name: Urine Dipstick--Ancillary (enter results) 10/09 14:18 Order name: Comprehensive Metabolic Panel [facility] 10/09 14:18 Order name: Comprehensive Metabolic Panel [facility] 10/09 14:18 Order name: Lipid Profile [facility] 10/09 14:18 Order name: Lipid Profile [facility] 10/09 14:18 Order name: Troponin I [facility] 10/09 14:18 Order name: Troponin I [facility] 10/09 14:18 Order name: Troponin I [facility] 10/09 11:32 Order name: CT Head Brain wo Cont; Complete Time: 13:33 10/09 11:32 Order name: EKG; Complete Time: 11:33 10/09 11:32 Order name: Cardiac monitoring; Complete Time: 11:48 10/09 11:32 Order name: EKG - Nurse/Tech; Complete Time: 11:55 rn 10/09 11:32 Order name: IV Saline Lock; Complete Time: 11:48 rn 10/09 11:32 Order name: Labs collected and sent; Complete Time: 11:48 rn 10/09 11:32 Order name: NPO; Complete Time: 11:48 rn 10/09 11:32 Order name: O2 Per Protocol; Complete Time: 11:48 rn 10/09 11:32 Order name: O2 Sat Monitoring; Complete Time: 11:48 rn 10/09 11:32 Order name: XRAY Chest (1 view); Complete Time: 13:33 rn 10/09 14:18 Order name: Heart Healthy [facility] 10/09 14:18 Order name: Troponin I [facility] 10/09 14:19 Order name: Urinalysis [facility] 10/09 14:19 Order name: CBC with Automated Diff [facility] 10/09 14:19 Order name: CBC with Automated Diff [facility] 10/09 11:32 Order name: Urine Dipstick-Ancillary (obtain specimen); Complete Time: 14:00 rn Administered Medications: 11:55 Drug: Meclizine 50 mg Route: PO; ss 15:20 Follow up: Response: No adverse reaction; No change in condition ss Disposition: 10/10/19 13:53 Hospitalization ordered by Pavel Lebron for Observation. Preliminary diagnosis are Dizziness and giddiness, Vertigo. - Bed requested for Telemetry/MedSurg (observation). - Status is Observation. ss - Condition is Stable. - Problem is new. - Symptoms are unchanged. Signatures: Dispatcher [employer] [facility] Marguerite Moon RN RN Mo Valencia MD MD rn Smirch, Shelby, RN RN ss Corrections: (The following items were deleted from the chart) 14:47 13:53 Hospitalization Ordered by Pavel Lebron MD for Observation. Preliminary diagnosis is Dizziness and giddiness; Vertigo. Bed requested for Telemetry/MedSurg (observation). Status is Observation. Condition is Stable. Problem is new. Symptoms are unchanged. rn 15: 14:47 10/10/2019 13:53 Hospitalization Ordered by Pavel Lebron MD for Observation. ss Preliminary diagnosis is Dizziness and giddiness; Vertigo. Bed requested for Telemetry/MedSurg (observation). Status is Observation. Condition is Stable. Problem is new. Symptoms are unchanged. dw
[2019-10-10] MEDS ORDERED: ONDANSETRON 4 MG/2 ML VIAL IV PRN (14:15)
[2019-10-10] MEDS ORDERED: ACETAMINOPHEN 500 MG TAB PO PRN (14:15)
--- NOTE | 2019-10-10 14:15 | P.HP ---
Certification for Inpatient Patient admitted to: Observation With expected LOS: <2 Midnights Practitioner: I am a practitioner with admitting privileges, knowledge of patient current condition, hospital course, and medical plan of care. Services: Services provided to patient in accordance with Admission requirements found in Title 42 Section 412.3 of the Code of Federal Regulations Patient History Date of Service: 10/10/19 Reason for admission: Dizziness History of Present Illness: 89 yrs old female with past medical history of hypertension, hyperlipidemia, CKD stage 2 recently been on antibiotics for cellulitis of the left foot came to ER with complaints of dizziness started 3 days ago and has been progressively worsening. Also has difficulty in ambulation especially with change of position. patient has a previous history of TA. Patient recently finished antibiotics for infection of the left leg , chest pain or shortness of breath. No fever no chills. Patient was assessed in the ER and was admitted for possible TIA and stroke workup Allergies No Known Allergies Allergy (Verified 10/10/19 15:46) Home medications list reviewed: Yes Home Medications: Allopurinol 1 tab PO DAILY 10/10/19 Amlodipine [Norvasc] 5 mg PO DAILY 10/10/19 Ezetimibe [Zetia*] 1 tab PO DAILY 10/10/19 Furosemide [Lasix] 40 mg PO DAILY 10/10/19 Gabapentin [Neurontin] 100 mg PO BID 10/10/19 Hydralazine [Apresoline] 60 mg PO DAILY 10/10/19 Metoprolol Succinate [Toprol Xl] 100 mg PO DAILY 10/10/19 - Past Medical/Surgical History Past Medical History: Reviewed- Non-Contributory -: Hypertension -: Hyperlipidemia -: CKD stage 2 Past Surgical History: Reviewed- Non-Contributory - Family History Family History: Reviewed- Non-Contributory - Social History Smoking Status: Never smoker Review of Systems 10-point ROS is otherwise unremarkable Physical Examination - Vital Signs Temperature: 97.6 F Blood Pressure: 174/96 Pulse: 74 Respirations: 19 - Physical Exam General: Alert, In no apparent distress HEENT: Atraumatic, Normocephalic Neck: Supple Respiratory: Clear to auscultation bilaterally, Normal air movement Cardiovascular: Regular rate/rhythm, Normal S1 S2 Capillary refill: <2 Seconds Gastrointestinal: Soft and benign, W/out succussion splash, W/out hepatosplenomegaly Musculoskeletal: No clubbing, No swelling Integumentary: Rash(es), Erythema, Other (Erythema of left foot ) Neurological: Normal speech, Normal strength at 5/5 x4 extr Lymphatics: No axilla or inguinal lymphadenopathy - Studies Laboratory Data (last 24 hrs) 10/10/19 11:45: PT 10.7, INR 0.91, APTT 28.1 10/10/19 11:45: WBC 8.3, Hgb 10.9 L, Hct 33.8 L, Plt Count 284 10/10/19 11:45: Sodium 140, Potassium 3.9, BUN 35 H, Creatinine 1.98 H, Glucose 133 H, Magnesium 2.4 Assessment and Plan - Problems (Diagnosis) (1) BPV (benign positional vertigo) Current Visit: Yes Status: Acute (2) Dizziness Current Visit: Yes Status: Acute (3) HTN (hypertension) Current Visit: Yes Status: Chronic (4) HLD (hyperlipidemia) Current Visit: Yes Status: Chronic - Plan Dizziness To rule out TIA Possible positional vertigo Hypertension Hyperlipidemia LILY on CKD stage 2 History of TA Plan Monitor under telemetry Will get a stroke workup MRI of the brain to rule out posterior circulation CVA Will get an echocardiogram , carotid Doppler Aspirin, statin Continue home medications and titrate as needed Antihypertensives and titrate Will start on meclizine GI/DVT prophylaxis Advanced directives full code Discharge Plan: Home - Advance Directives Does patient have a Living Will: No Does patient have a Durable POA for Healthcare: No Time Spent Managing Pts Care (In Minutes): 42
[2019-10-10 14:39] LABS: Urine Blood NEGATIVE (NEG); Urine Glucose NEGATIVE (NEG); Urine Protein 2+ (NEG); Urine Specific Gravity 1.015 (1.005-1.030)
[2019-10-10 15:50] VITALS: BMI 29.1
[2019-10-10] MEDS: ENOXAPARIN 30 MG/0.3 ML SQ SCH (16:05)
[2019-10-10] MEDS ORDERED: MECLIZINE HCL 12.5 MG TAB PO PRN (16:18)
--- NOTE | 2019-10-10 19:47 | RAD REPORT ---
EXAM DESCRIPTION: - CP - 10/10/2019 7:20 pm CLINICAL HISTORY: dizziness Headache, drowsiness COMPARISON: No comparisons TECHNIQUE: Real-time sonographic evaluation of both carotid systems was performed. Doppler interroga tion was performed with waveform tracing bilaterally. FINDINGS: Normal high resistance waveforms are noted in both external carotid arteries. The common c arotid arteries and internal carotid arteries show normal low resistance waveforms. Mild to moderate hard plaquing is seen in both carotid bulbs, greater on the right. Peak systolic and end diastolic velocity values and the ICA/CCA ratios are in the non-hemodynamically significant rang e. Antegrade flow seen in both vertebral arteries. IMPRESSION: Mild to moderate hard plaquing is present, greater on the right. No evidence of a hemodynamically significant stenosis.
[2019-10-10] MEDS ORDERED: POTASSIUM CL SA 10 MEQ TAB PO ONE (21:00)
[2019-10-10] MEDS ORDERED: HYDRALAZINE HCL 10 MG TABLET PO SCH (21:00)
[2019-10-10] MEDS: GABAPENTIN 100 MG CAP PO SCH (21:25)
[2019-10-10] MEDS: HYDRALAZINE HCL 10 MG TABLET PO SCH (21:25)
[2019-10-10 23:07] LABS: Urine Appearance CLEAR; Urine Bilirubin NEGATIVE (NEG); Urine Blood NEGATIVE (NEG); Urine Color YELLOW; Urine Glucose NEGATIVE (NEG); Urine Protein 2+ (NEG); Urine Urobilinogen 0.2 mg/dL (0.2-1.0)
[2019-10-10 23:12] LABS: Urine Microscopic Reflex ORDER UMIC
[2019-10-10 23:48] LABS: Urine Bacteria <20 /HPF (<20); Urine Culture Reflex Order NOT NEEDED; Urine RBC <5 /HPF (NONE SEEN)
[2019-10-11 04:20] LABS: Absolute Lymphocytes (CBC) 2.4 K/uL (0.7-4.9); Basophils % 1.3 % (0-1.3); Lymphocytes % 31.1 % (15.3-44.8); MPV 9.7 fL (7.6-11.3); RBC Red Blood Cell Count 3.65 M/uL (3.86-4.86)
[2019-10-11 04:32] LABS: Albumin 3.1 g/dL (3.4-5.0); Bilirubin Total 0.2 mg/dL (0.2-1.0); Magnesium 2.3 mg/dL (1.8-2.4); Phosphorus 3.1 mg/dL (2.5-4.9); Potassium 4.2 mmol/L (3.5-5.1); Protein, Total 6.9 g/dL (6.4-8.2)
[2019-10-11] MEDS ORDERED: LORazepam 2 MG/ML VIAL IV PRN (06:17)
[2019-10-11] MEDS: ENOXAPARIN 30 MG/0.3 ML SQ SCH (08:24)
[2019-10-11] MEDS: HYDRALAZINE HCL 10 MG TABLET PO SCH ×2 (08:24→21:27)
[2019-10-11] MEDS: ASPIRIN EC 81 MG TAB PO SCH (08:25)
[2019-10-11] MEDS: AMLODIPINE 5 MG TAB PO SCH (08:25)
[2019-10-11] MEDS: allopurinoL 100 MG TAB PO SCH (08:25)
[2019-10-11] MEDS: GABAPENTIN 100 MG CAP PO SCH ×2 (08:25→21:28)
[2019-10-11] MEDS: EZETIMIBE 10 MG TAB PO SCH (08:25)
[2019-10-11] MEDS ORDERED: FUROSEMIDE 40 MG TABLET PO SCH (09:00)
[2019-10-11] MEDS ORDERED: ENOXAPARIN 40 MG/0.4 ML SQ SCH (09:00)
[2019-10-11] MEDS ORDERED: HYDRALAZINE HCL 10 MG TABLET PO SCH (09:00)
[2019-10-11] MEDS ORDERED: METOPROLOL XL 100 MG TAB PO SCH (09:00)
--- NOTE | 2019-10-11 09:53 | P.PN ---
Subjective Date of Service: 10/11/19 Chief Complaint: Dizziness Subjective: No new changes Review of Systems 10-point ROS is otherwise unremarkable Physical Examination - Vital Signs Temperature: 97.1 F Blood Pressure: 143/70 Pulse: 56 Respirations: 20 Pulse Ox (%): 92 - Physical Exam General: Alert, In no apparent distress HEENT: Atraumatic, Normocephalic Neck: Supple, 2+ carotid pulse no bruit Respiratory: Clear to auscultation bilaterally, Normal air movement Cardiovascular: Normal pulses, Regular rate/rhythm Capillary refill: <2 Seconds Gastrointestinal: Soft and benign, W/out hepatosplenomegaly Musculoskeletal: No clubbing, No swelling Integumentary: No rashes Neurological: Normal speech, Normal strength at 5/5 x4 extr Lymphatics: No axilla or inguinal lymphadenopathy - Studies Laboratory Data (last 24 hrs) 10/10/19 11:45: PT 10.7, INR 0.91, APTT 28.1 10/10/19 11:45: WBC 8.3, Hgb 10.9 L, Hct 33.8 L, Plt Count 284 10/10/19 11:45: Sodium 140, Potassium 3.9, BUN 35 H, Creatinine 1.98 H, Glucose 133 H, Magnesium 2.4 Assessment & Plan - Problems (Diagnosis) (1) BPV (benign positional vertigo) Current Visit: Yes Status: Acute (2) Dizziness Current Visit: Yes Status: Acute (3) HTN (hypertension) Current Visit: Yes Status: Chronic (4) HLD (hyperlipidemia) Current Visit: Yes Status: Chronic Physician Review Additional Text: Dizziness To rule out TIA Possible positional vertigo Hypertension Hyperlipidemia LILY on CKD stage 2 History of TA Plan Monitor under telemetry stroke workup MRI of the brain is pending echocardiogram carotid Doppler showing no critical stenosis Aspirin, statin Continue home medications and titrate as needed Antihypertensives titrated on meclizine p.r.n. GI/DVT prophylaxis Advanced directives full code Disposition : Stroke workup Dc home if workup is negative PT eval May need home health and home PT depending upon PT recommendation Time Spent Managing Pts Care (In Minutes): 43
--- NOTE | 2019-10-11 11:11 | RAD REPORT ---
EXAM DESCRIPTION: MRI - Brain Wo Cont - 10/11/2019 10:48 am CLINICAL HISTORY: CVA Headache, drowsiness, CVA symptomology COMPARISON: Head Brain Wo Cont dated 10/10/2019 TECHNIQUE: Multi-sequence, multiplanar MR imaging of the brain was performed without contrast. FINDINGS: A motion degraded study is submitted, limiting quality of study. No intracranial hemorrhage, hydrocephalus or extra-axial fluid collections.Moderate confluent T2/FLAI R hyperintensity in the periventricular and deep white matter is present compatible with chronic micr ovascular ischemic changes. No edema or shift of midline structures. No findings to suspect brain mas s. DWI is negative for acute CVA. Midline structures are normally formed. Mastoid air cells and paranasal sinuses are clear. IMPRESSION: Negative for acute CVA or other acute intracranial process.
[2019-10-11] MEDS ORDERED: Ringers Lactate 1,000 ML IV SCH (17:00)
[2019-10-11] MEDS: METOPROLOL XL 100 MG TAB PO SCH (21:28)
[2019-10-12 07:40] LABS: Absolute Lymphocytes (CBC) 2.4 K/uL (0.7-4.9); Hematocrit 33.9 % (36.0-45.0); Lymphocytes % 28.6 % (15.3-44.8); MPV 9.4 fL (7.6-11.3); RBC Red Blood Cell Count 3.87 M/uL (3.86-4.86)
--- NOTE | 2019-10-12 07:53 | ECHO ---
HEIGHT: 5 ft 5 in WEIGHT: 175 lb 0 oz DATE OF STUDY: 10/11/[address]: Donaldo Lebron DO 2-DIMENSIONAL: YES M.MODE: YES DOPPLER: YES COLOR FLOW: YES TDS: NO PORTABLE: NO DEFINITY: NO BUBBLE STUDY: NO DIAGNOSIS: TRANSIENT ISCHEMIC ATTACK CARDIAC HISTORY: CATHERIZATION: NO SURGERY: NO PROSTHETIC VALVE: NO PACEMAKER: NO MEASUREMENTS (cm) DIASTOLIC (NORMALS) SYSTOLIC (NORMALS) IVSd 1.0 (0.6-1.2) LA Diam 3.9 (1.9-4.0) LVEF 77% LVIDd 4.9 (3.5-5.7) LVIDs 2.6 (2.0-3.5) %FS 46% LVPWd 1.1 (0.6-1.2) Ao Diam 3.3 (2.0-3.7) 2 DIMENSIONAL ASSESSMENT: RIGHT ATRIUM: NORMAL LEFT ATRIUM: NORMAL RIGHT VENTRICLE: NORMAL LEFT VENTRICLE: NORMAL TRICUSPID VALVE: NORMAL MITRAL VALVE: NORMAL PULMONIC VALVE: NORMAL AORTIC VALVE: NORMAL PERICARDIAL EFFUSION: NONE AORTIC ROOT: NORMAL LEFT VENTRICULAR WALL MOTION: NORMAL. DOPPLER/COLOR FLOW: NORMAL. COMMENTS: NORMAL LEFT VENTRICULAR SIZE AND FUNCTION. NO WALL MOTION ABNORMALITY. NO VEGETATION. NO THROMBUS. TECHNOLOGIST: CHUCKIE YATES
[2019-10-12 07:58] LABS: Albumin 3.3 g/dL (3.4-5.0); Bilirubin Total 0.3 mg/dL (0.2-1.0); Potassium 4.1 mmol/L (3.5-5.1); Protein, Total 7.3 g/dL (6.4-8.2); Uric Acid 5.7 mg/dL (2.6-6.0)
--- NOTE | 2019-10-12 09:57 | RAD REPORT ---
EXAM DESCRIPTION: US - Extrem Venous W Compress Vinny - 10/12/2019 9:50 am CLINICAL HISTORY: recurrent cellulitis, leg pain COMPARISON: None. TECHNIQUE: Real-time sonographic evaluation of the bilateral lower extremity common femoral, superfi cial femoral, popliteal and posterior tibial veins was performed. FINDINGS: Normal compressibility, flow augmentation, phasic flow and spontaneous flow are identified in the left and right lower extremity common femoral, superficial femoral, popliteal and posterior t ibial veins. No intraluminal filling defects seen. IMPRESSION: No DVT in either lower extremity.
--- NOTE | 2019-10-12 09:59 | RAD REPORT ---
EXAM DESCRIPTION: US - Renal Ultrasound-Complete - 10/12/2019 9:40 am CLINICAL HISTORY: CKD COMPARISON: No comparisons FINDINGS: The right kidney measures 10.2 x 5.2 x 5.3 cm. The left kidney measures 9.9 x 4.7 x 4.7 c m. Both kidneys show bilateral cortical thinning and significant increase in cortical echogenicity. T hese findings are consistent with medical renal disease. No hydronephrosis or suspicious renal mass. Patient has multiple small right renal cysts. Largest is 3 cm. No suspicious characteristics noted. Bladder is mostly contracted limiting assessment. No gross abnormality seen. IMPRESSION: Prominent medical renal disease findings are evident with increased cortical echogenicit y and cortical thinning. Mostly contracted urinary bladder shows no gross abnormality.
[2019-10-12] MEDS: HYDRALAZINE HCL 10 MG TABLET PO SCH (10:14)
[2019-10-12] MEDS: allopurinoL 100 MG TAB PO SCH (10:14)
[2019-10-12] MEDS: EZETIMIBE 10 MG TAB PO SCH (10:14)
[2019-10-12] MEDS: ASPIRIN EC 81 MG TAB PO SCH (10:14)
[2019-10-12] MEDS: AMLODIPINE 5 MG TAB PO SCH (10:14)
[2019-10-12] MEDS: GABAPENTIN 100 MG CAP PO SCH ×2 (10:15→21:02)
[2019-10-12] MEDS: ENOXAPARIN 30 MG/0.3 ML SQ SCH (10:15)
--- NOTE | 2019-10-12 11:24 | P.PN ---
Subjective Date of Service: 10/12/19 Chief Complaint: Dizziness Subjective: No new changes, Other (Denies any chest pain or shortness of breath No fever or chills) Review of Systems 10-point ROS is otherwise unremarkable Physical Examination - Vital Signs Temperature: 97.8 F Blood Pressure: 147/82 Pulse: 63 Respirations: 16 Pulse Ox (%): 97 - Physical Exam General: Alert, In no apparent distress HEENT: Atraumatic, Normocephalic Neck: Supple Respiratory: Clear to auscultation bilaterally Cardiovascular: Normal pulses, Regular rate/rhythm, Normal S1 S2 Capillary refill: <2 Seconds Gastrointestinal: Soft and benign, W/out hepatosplenomegaly Musculoskeletal: No clubbing, No swelling Integumentary: No rashes, No breakdown Neurological: Normal speech, Normal strength at 5/5 x4 extr Lymphatics: No axilla or inguinal lymphadenopathy Assessment & Plan - Problems (Diagnosis) (1) BPV (benign positional vertigo) Current Visit: Yes Status: Acute (2) Dizziness Current Visit: Yes Status: Acute (3) HTN (hypertension) Current Visit: Yes Status: Chronic (4) HLD (hyperlipidemia) Current Visit: Yes Status: Chronic Physician Review Additional Text: LILY on CKD stage 2 Dizziness To rule out TIA Possible positional vertigo vs Orthostatic hypotension H/o Hypertension Hyperlipidemia History of TIA Plan Monitor under telemetry stroke workup MRI of the brain is pending echocardiogram carotid Doppler showing no critical stenosis Aspirin, statin Continue home medications and titrate as needed Antihypertensives titrated on meclizine p.r.n. GI/DVT prophylaxis Advanced directives full code Disposition : Stroke workup was negative Appreciate help from Nephrology PT eval May need home health and home PT depending upon PT recommendation Possible DC in AM Time Spent Managing Pts Care (In Minutes): 42
--- NOTE | 2019-10-12 12:02 | CON ---
Date of Consultation: 10/12/2019 Reason For Consultation: Elevated BUN and creatinine, fluid management. History Of Present Illness: This is a pleasant 89-year-old female, well known to me from the office with significant past medical history of gout, osteoarthritis, TIA, hypertension since 1989, no coronary artery disease, the patient had chronic kidney disease stage 4, secondary to hypertension nephrosclerosis. Patient came to the office in lost week for evaluation. Patient had erythema with increased leg swelling. For that reason, we increase the Lasix for the patient and started the patient on antibiotic. According to the patient, she started having dizziness, especially with ambulating or standing. Her swelling has been subsided. Her erythema has been subsided. Originally was placed on Levaquin but she developed side effects. For that reason, we switched her to Augmentin. In the office, her creatinine was 2.1 with GFR of 20, uric acid 6.1. Her bicarb was 24 with normal potassium. Upon arrival to the hospital, her creatinine was 2.1 with GFR of 22. The patient denied taking any nonsteroidal. No IV contrast. The only changes in medication as I mentioned, increasing the Lasix and starting her on Levaquin, then I switched to Augmentin. Patient denied any other rash except the erythema on the left leg, which has been improved. Past Medical History: Includes, 1. Hypertension. 2. Hyperlipidemia. 3. Gout. 4. 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 Baseline creatinine back in May 24.6, GFR 27. 5. Secondary hyperparathyroidism. Home Medications: Include amlodipine, allopurinol, hydralazine, metoprolol, gabapentin, Lasix. Current medications in the hospital include allopurinol, amlodipine, Lovenox, Zetia, hydralazine, LR, metoprolol, Zofran. Past Surgical History: Negative. Family History: Positive for hypertension. Social History: Denies smoking. Denies drinking. Denies drug abuse. Review of Systems: Head and Neck: No red eye. No ear pain. GI: Has nausea without any vomiting. : No polyuria. No dysuria. No hematuria. [employer]: No vaginal discharge. Respiratory: No shortness of breath. Cardiovascular: Has leg swelling unilateral. Neuro: Has presyncope, dizziness. Musculoskeletal: Has leg pain. Physical Examination: Vital Signs: When I saw the patient, blood pressure of 147/82, pulse of 63, earlier blood pressure was elevated up to 178/78. The patient is afebrile. Chest: Clear to auscultation. Heart: S1, S2. Systolic murmur. Abdomen: Soft, nontender. Extremities: Unilateral swelling on the left leg, chronic changes, erythema has been resolved right leg. There is no erythema. No edema. Neurologic: Alert and oriented x3. No focal. No tremor. Laboratory Data: Sodium 141, potassium 4.1, bicarb 26, BUN 38, creatinine 2.1, calcium 9.1. Albumin 3.3. WBC 8.2, H and H 11/33.9, platelet 288. Urinalysis negative for infection, specific gravity of 1.010, +2 protein. Assessment And Plan: 1. Acute kidney injury, mostly secondary to overdiuresis secondary to Lasix, doubt to be any autoimmune disease on advanced chronic kidney disease, baseline creatinine 1.6-1.8, GFR 24 to 27. Obstructive uropathy has been ruled out with ultrasound of normal size kidney 10.2/9.9. I am going to continue current hydration. I am going to increase the LR to 100 per hour and will follow up with the patient, keep holding Lasix for the time being and we will follow up the patient. 2. Renal cyst on the right side, multiple, the largest 3 cm, stable. We will monitor. 3. Hypertension, not controlled, with the presence of acute kidney injury discontinue Lasix and with the presence of the edema, I am going to hold on the amlodipine. We will increase hydralazine to 50 mg 3 times a day and we will follow up the orthostatic blood pressure measurement. 4. Cellulitis status post treatment, recovered, resolved. 5. Gout. I am going to check for uric acid. Thank you Dr. Lebron for allowing us to participate in the care of your patient. Time spend for patient Care face to face , ordering and discussing the plan of care with staff 35 min MAR Voice ID: [id number] Report ID: [id number] MILO
[2019-10-12] MEDS: Ringers Lactate 1,000 ML IV SCH ×2 (14:38→22:00)
[2019-10-12] MEDS: HYDRALAZINE HCL 25 MG TABLET PO SCH ×2 (14:38→21:02)
[2019-10-12 15:06] LABS: Urine Protein/Creatinine Ratio 0.98 ratio (<0.15)
[2019-10-12] MEDS: METOPROLOL XL 100 MG TAB PO SCH (21:02)
[2019-10-13 05:18] LABS: Albumin 3.5 g/dL (3.4-5.0); Phosphorus 3.3 mg/dL (2.5-4.9); Thyroid Stimulating Hormone 1.71 uIU/mL (0.360-3.740)
[2019-10-13] MEDS: Ringers Lactate 1,000 ML IV SCH (08:00)
[2019-10-13] MEDS: GABAPENTIN 100 MG CAP PO SCH (08:29)
[2019-10-13] MEDS: EZETIMIBE 10 MG TAB PO SCH (08:29)
[2019-10-13] MEDS: ASPIRIN EC 81 MG TAB PO SCH (08:29)
[2019-10-13] MEDS: ENOXAPARIN 30 MG/0.3 ML SQ SCH (08:29)
[2019-10-13] MEDS: HYDRALAZINE HCL 25 MG TABLET PO SCH (08:29)
[2019-10-13] MEDS: allopurinoL 100 MG TAB PO SCH (08:29)
[2019-10-13 10:04] VITALS: BP 131/73; TEMP 97.8
[2019-10-13 11:04] VITALS: O2SAT 97
--- NOTE | 2019-10-13 11:19 | P.DS ---
Admission Date: 10/13/19 Discharge Date: 10/13/19 Disposition: DC HOME/HOME HEALTH CARE Discharge Condition: FAIR Reason for Admission: Dizziness - Problems (1) BPV (benign positional vertigo) Status: Acute (2) Dizziness Status: Acute (3) HTN (hypertension) Status: Chronic (4) HLD (hyperlipidemia) Status: Chronic Brief History of Present Illness: 89 yrs old female with past medical history of hypertension, hyperlipidemia, CKD stage 2 recently been on antibiotics for cellulitis of the left foot came to ER with complaints of dizziness started 3 days ago and has been progressively worsening. Also has difficulty in ambulation especially with change of position. patient has a previous history of TA. Patient recently finished antibiotics for infection of the left leg , chest pain or shortness of breath. No fever no chills. Patient was assessed in the ER and was admitted for possible TIA and stroke workup Hospital Course: LILY on CKD stage 2 Dizziness To rule out TIA Possible positional vertigo vs Orthostatic hypotension H/o Hypertension Hyperlipidemia History of TIA The patient was admitted and was monitored closely under telemetry. she had a stroke workup which was negative for any acute stroke Also found to have acute kidney injury and nephrology was consulted Was started on IV hydration and her renal parameters were monitored carotid Doppler showing no critical stenosis Continued home medications and titrate as needed Antihypertensives titrated Started on meclizine Disposition : Stroke workup was negative Appreciate help from Nephrology PT eval need home health and home PT depending upon PT re commendation Patient wanted go home and is being discharged home today in a stable condition with advice to follow up with PCP and also nephrology in 1 week Vital Signs/Physical Exam: Temp Pulse Resp BP Pulse Ox 97.8 F 68 16 131/73 97 10/13/19 08:00 10/13/19 08:00 10/13/19 08:00 10/13/19 08:00 10/13/19 08:00 General: Alert, In no apparent distress HEENT: Atraumatic, Normocephalic Neck: Supple Respiratory: Clear to auscultation bilaterally, Normal air movement Cardiovascular: Normal pulses, Regular rate/rhythm Capillary refill: <2 Seconds Gastrointestinal: Soft and benign, W/out hepatosplenomegaly Musculoskeletal: No clubbing, No swelling Integumentary: No rashes Neurological: Normal speech, Normal strength at 5/5 x4 extr Lymphatics: No axilla or inguinal lymphadenopathy Laboratory Data at Discharge: WBC 8.2 K/uL (4.3-10.9) 10/12/19 07:11 Hgb 11.0 g/dL (12.0-15.0) L 10/12/19 07:11 Hct 33.9 % (36.0-45.0) L 10/12/19 07:11 Plt Count 288 K/uL (152-406) 10/12/19 07:11 PT 10.7 SECONDS (9.5-12.5) 10/10/19 11:45 INR 0.91 10/10/19 11:45 APTT 28.1 SECONDS (24.3-36.9) 10/10/19 11:45 Sodium 138 mmol/L (136-145) 10/13/19 04:18 Potassium 4.0 mmol/L (3.5-5.1) 10/13/19 04:18 BUN 43 mg/dL (7-18) H 10/13/19 04:18 Creatinine 2.03 mg/dL (0.55-1.3) H 10/13/19 04:18 Glucose 110 mg/dL (74-106) H 10/13/19 04:18 Uric Acid 5.7 mg/dL (2.6-6.0) 10/12/19 07:11 Phosphorus 3.3 mg/dL (2.5-4.9) 10/13/19 04:18 Magnesium 2.3 mg/dL (1.8-2.4) 10/11/19 03:50 Total Bilirubin 0.3 mg/dL (0.2-1.0) 10/12/19 07:11 AST 17 U/L (15-37) 10/12/19 07:11 ALT 16 U/L (12-78) 10/12/19 07:11 Alkaline Phosphatase 87 U/L (45-117) 10/12/19 07:11 Troponin I < 0.02 ng/mL (0.0-0.045) 10/11/19 12:10 Triglycerides 306 mg/dL (<150) H 10/11/19 03:50 Cholesterol 228 mg/dL (<200) H 10/11/19 03:50 HDL Cholesterol 35 mg/dL (40-60) L 10/11/19 03:50 Cholesterol/HDL Ratio 6.51 10/11/19 03:50 Home Medications: Allopurinol 1 tab PO DAILY 10/10/19 Amlodipine [Norvasc] 5 mg PO DAILY 10/10/19 Ezetimibe [Zetia*] 1 tab PO DAILY 10/10/19 Furosemide [Lasix] 40 mg PO DAILY 10/10/19 Gabapentin [Neurontin] 100 mg PO BID 10/10/19 Hydralazine [Apresoline] 60 mg PO DAILY 10/10/19 Metoprolol Succinate [Toprol Xl] 100 mg PO DAILY 10/10/19 Furosemide [Lasix] 20 mg PO DAILY 30 Days #30 tab 10/13/19 Meclizine HCl [Antivert*] 12.5 mg PO TID #20 tab 10/13/19 New Medications: Meclizine HCl [Antivert*] 12.5 mg PO TID #20 tab Furosemide [Lasix] 20 mg PO DAILY 30 Days #30 tab Diet: [facility] Followup: Mica Blount MD [ACTIVE - CAN ADMIT] - Time spent managing pt's care (in minutes): 42
--- NOTE | 2019-10-13 12:33 | PN ---
Date of Progress Note: 10/13/2019 Subjective: Patient was admitted with acute kidney injury, hypotension, dehydration. Patient was started on IV fluid. Lasix was stopped. Patient is feeling better. Dizziness has been subsided significantly. The patient is completely asymptomatic, ambulating with the staff. Physical Examination: Vital Signs: Blood pressure 131/73, pulse of 68, afebrile. The patient had good urine output of voiding 1800. The patient continue to be negative balance of 300. Chest: Clear to auscultation. Heart: S1, S2 regular. Abdomen: Soft, nontender. Extremities: Trace edema. Erythema has been subside on the left leg. Venous stasis changes bilateral. Laboratory Data: WBC 8.2, H and H 11/33.9, platelet 288. Sodium 138, potassium 4, bicarb 24, BUN 43, creatinine of 2, GFR of 23, calcium 9.2, phosphorus 3.3. PTH of 203. TSH 1.7. Urinalysis; specific gravity of 1.010. PC ratio 0.9. Orthostatic was negative. Current Medications: The patient on include Lovenox, aspirin, Zetia, hydralazine 50 mg t.i.d. metoprolol 100 daily, Tylenol, gabapentin 100 b.i.d., LR, meclizine, Zofran, allopurinol. Assessment And Plan: 1. Acute kidney injury on chronic kidney disease secondary to prerenal, secondary to over diuresis, recovered, resolved back to baseline. I am going to go ahead and discontinue IV fluid. We will monitor the patient. Patient will be cleared from the renal standpoint for discharge planning to follow up in the office next week. We will resume Lasix as a 20 mg every other day, and we will follow up the patient. 2. Hypertension, controlled, optimal. Continue current medication. 3. Gout. Continue allopurinol. 4. Dizziness secondary to orthostatic, recovered. We will follow up. Continue meclizine. Again, we are decreasing the Lasix. 5. Cellulitis, status post treatment, resolved. Time spend for patient Care face to face , ordering and discussing the plan of care with staff 35 min MAR Voice ID: [id number] Report ID: [id number] MILO
== END 2019-10-13 12:41 | disposition home health service (06) | DRG 684 ==
LOC: ER 11:11 → ERHOLD 14:16 → 2ND 15:11 → OBSVTOIN 10-13 07:17
PROVIDERS: ADMIT Family Medicine; ATTEND Family Medicine
DX: N17.9 Acute kidney failure, unspecified (principal); H81.10 Benign paroxysmal vertigo, unspecified ear; I12.9 Hypertensive chronic kidney disease with stage 1 through stage 4 chronic kidney disease, or unspecified chronic kidney disease; N18.2 Chronic kidney disease, stage 2 (mild); E78.5 Hyperlipidemia, unspecified; Z11.59 Encounter for screening for other viral diseases
CPT/HCPCS: 36415; 70450; 70551; 71045; 76770; 80048; 80053; 80061; 80069; 81003; 81015; 82550; 82570; 83735; 83970; 84100; 84156; 84443; 84484; 84550; 85025; 85610; 85730; 87040; 93005; 93306; 93880; 93970; 97116; 97161; 99285; G0378; J1650; J7120; J8597; U0002

== ENCOUNTER 2020-05-04 07:35 | Inpatient (IN) | payer MEDICARE, SELFPAY ==
--- OUTSIDE RECORDS SUMMARY | 2020-05-04 07:38 | XMS REPORT | Continuity of Care Document ---
:1930 Author Organization [facility] t Address [address] [place] [address] Care Team Providers Name Role Phone DEREK MACHUCA Attending Clinician Unavailable Problems This patient has no known problems. Allergies, Adverse Reactions, Alerts This patient has no known allergies or adverse reactions. Social History Social Habit Start Date Stop Date Quantity Comments Source Sex Assigned At [facility] Tobacco use and 2018-09-07 2018-09-07 Never used [facility] - exposure 00:00:00 00:00:00 [facility] Alcohol intake 2018-09-07 2018-09-07 Current drinker [facility] [employer] [facility] - 00:[facility]:00 00:00:00 of [facility] (finding) Alcohol Comment 2018-09-07 2018-09-07 Every other day [facility] - [facility]:00:00 [facility] Smoking Status Start Date Stop Date Source Never smoker [facility] Medications Ordered Filled Start Stop Current Ordering Indication Dosage Frequency Signature Comments Components Source Medication Medication Date Date Medication? Clinician (SIG) Name Name omega-3 2019- Yes 1{capsu QD Take 1 [facility] fatty 7-16 [facility]} capsule by [facility] - acids-fish 23:54: mouth Medica l oil (FISH 06 daily. [facility] OIL) 360-1,200 mg Cap coenzyme 2018- Yes 1{capsu QD Take [address] [facility] Q10 (CO 7-16 le} capsule by [facility] - Q-10) 200 23:54: mouth Medical mg capsule 06 daily. [facility] allopurinol Yes 100mg QD Take [address] (ZYLOPRIM) 7-16 mg by [facility] - 100 MG 23:54: mouth Medical tablet 06 daily. [facility] furosemide Yes 20mg QD Take [address] (LASIX) 20 7-16 by mouth [facility] - MG tablet 00:00: daily. Medica l 00 [facility] potassium Yes 10meq QD Take [address] [facility] chloride SA 7-16 mEq by [facility] - (K-DUR,KLOR 00:00: mouth Medic al -CON) 10 00 daily. [facility] MEQ tablet gabapentin Yes 100mg QD Take [address] (NEURONTIN) 6-12 mg by [facility] - 100 MG 00:00: mouth Medical capsule 00 daily. [facility] ezetimibe Yes 10mg QD Take [address] (ZETIA) 10 5-06 by [facility] - mg tablet 00:00: daily. Medica l 00 [facility] hydroCHLORO Yes 25mg QD Take [address] [facility] thiazide 5-02 by mouth [facility] - (HYDRODIURI 00:00: daily. Medi tari L) 25 MG 00 Center tablet amLODIPine Yes 5mg QD Take [address] [facility] [address] [facility] (NORVASC) 5 5-02 by mouth [facility] - MG tablet 00:00: daily. Medica l 00 [facility] hydrALAZINE Yes 10mg Q.5D Take [address] [facility] (APRESOLINE 3-03 by mouth 2 [facility] - ) 10 MG 00:00: (two) Medical tablet 00 times Center daily. metoprolol Yes 100mg QD Take [address] (TOPROL-XL) 3-03 mg by [facility] - 100 MG 24 00:00: mouth Medical hr tablet 00 daily. [facility] cloNIDine Yes .1mg Take 0.[address] [facility] HCl 7-06 mg by [facility] - (CATAPRES) 00:00: mouth as Med ical 0.1 MG 00 needed. [facility] tablet colchicine Yes .6mg Take 0.[address] [facility] (COLCRYS) 3-06 mg by [facility] - 0.6 mg 00:00: mouth as Medical tablet 00 needed. Center Procedures This patient has no known procedures. Plan of Care Planned Activity Planned Date Details Comments Source Future Scheduled 2019-10-[address] [facility] - Test 00:00:00 (#1) [code = Medical Center INFLUENZA VACCINE (#1)] Future Scheduled 2019-02-[address] [facility] - Test 00:00:00 WELLNESS (YEAR 2 or Medical Center FIRST YEAR if no IPPE) [code = MEDICARE ANNUAL WELLNESS (YEAR 2 or FIRST YEAR if no IPPE)] Encounters Start End Encounter Admission Attending Care Care Encounter Source Date/Time Date/Time Type Type Clinicians Facility Department ID 2020-04-26 2020-04-26 [id number] 2020-04-26 2020-04-26 [facility] [id number] 2020-02-20 2020-02-20 [facility] [id number] 2020-02-20 2020-02-20 [facility] [id number] [facility] 2020-01-31 2020-01-31 [facility] [id number] [facility] 2020-01-09 2020-01-09 [facility] [id number] [facility] 2019-12-28 2019-12-28 [facility] [id number] [facility] 2019-12-21 2019-12-21 [facility] [id number] Results Test Description Test Time Test Comments Results Result [facility] e Comments VENOUS DOPPLER 2018-09-07 Reason for FINAL REPORT PATIENT LEGS, BILATERAL 23:17:00 exam:->LEG ID: [id number] SWELLING EXAMINATION: BILATERAL LOWER EXTREMITY VENOUS DUPLEX/DOPPLER [...] MDReport Verified Date/Time: 09/07/2018 23:17:28 Reading Location: [address] Reading Room /APTT 2018-09-07 22:00:00 Test Item Value Reference Range Interpretation Comme nts PROTIME ([employer]) (test code = 759) 9.8 sec 9.3-12.0 [...] 0-100 H (test code = 700) TROPONIN [id number] 21:56:00 Test Item Value Reference Range Interpretation [...] acute neurological disease, and persistent tachyarrhythmia.COMPREHENSIVE METABOLIC [id number] 21:51:00 Test Item Value Reference Range Interpretation [...] ATED GFR. CBC W/PLT COUNT & AUTO [id number] 21:28:00 Test Item Value Reference Range Interpretation [...] % 0-0 PERCENT (BEAKER) (test code = 7517)
[2020-05-04 08:17] LABS: Absolute Lymphocytes (CBC) 1.5 K/uL (0.7-4.9); Basophils % 1.3 % (0-1.3); Hematocrit 29.6 % (36.0-45.0); MPV 9.7 fL (7.6-11.3); RBC Red Blood Cell Count 3.44 M/uL (3.86-4.86)
--- NOTE | 2020-05-04 08:18 | RAD REPORT ---
EXAM DESCRIPTION: CT - Ct Stroke Brain Wo Cont - 05/04/2020 8:01 am CLINICAL HISTORY: SLURRED SPEECH Headache, drowsiness, CVA symptomology COMPARISON: Head Brain Wo Cont dated 10/10/2019; Ct Stroke Brain Wo Cont dated 05/13/2018 TECHNIQUE: All CT scans are performed using dose optimization technique as appropriate and may inclu de automated exposure control or mA/KV adjustment according to patient size. FINDINGS: No intracranial hemorrhage, hydrocephalus or extra-axial fluid collection.Mild generalized brain atrophy is present with mild periventricular and deep white matter chronic microvascular ische cayetano changes.No areas of brain edema or evidence of midline shift. The paranasal sinuses and mastoids are clear. The calvarium is intact. Mild atherosclerosis of the le ft vertebral artery. IMPRESSION: No acute intracranial abnormality. The findings were discussed with Dr Harry in the ER on 05/04/2020 at 8:08 a.m. by telephone.
[2020-05-04 08:20] LABS: Protime INR 0.88
--- NOTE | 2020-05-04 08:52 | RAD REPORT ---
EXAM DESCRIPTION: RAD - Chest Single View - 05/04/2020 8:12 am CLINICAL HISTORY: poss cva Chest pain. COMPARISON: Chest Single View dated 10/10/2019; Chest Single View dated 05/13/2018 FINDINGS: Portable technique limits examination quality. Mild interstitial prominence is seen which could indicate mild interstitial edema. The heart is moder ately enlarged. No displaced fractures.Aortic atherosclerosis. IMPRESSION: Mild CHF.
[2020-05-04] MEDS ORDERED: ONDANSETRON 4 MG/2 ML VIAL ONE (09:10)
--- NOTE | 2020-05-04 11:00 | RAD REPORT ---
EXAM DESCRIPTION: MRI - Brain Wo Cont - 05/04/2020 10:29 am CLINICAL HISTORY: SLURRED SPEECH Headache, drowsiness, CVA symptomology COMPARISON: Ct Stroke Brain Wo Cont dated 05/04/2020 TECHNIQUE: Multi-sequence, multiplanar MR imaging of the brain was performed without contrast. FINDINGS: No intracranial hemorrhage, hydrocephalus or extra-axial fluid collections.Moderate conflu ent T2/FLAIR hyperintensity in the periventricular and deep white matter is present compatible with c hronic microvascular ischemic changes. No edema or shift of midline structures. No findings to suspec t brain mass. DWI is negative for acute CVA. Midline structures are normally formed. Mastoid air cells and paranasal sinuses are clear. IMPRESSION: Negative for acute CVA or other acute intracranial process.
[2020-05-04] MEDS ORDERED: ASPIRIN 81 MG CHEWABLE TABLET ONE (12:12)
[2020-05-04] MEDS ORDERED: CLOPIDOGREL 75 MG TABLET ONE (12:13)
--- NOTE | 2020-05-04 12:42 | EDPHYS ---
Physician Documentation [facility] Name: Crista Ivy Age: 89 yrs Sex: Female : 1930 Arrival Date: 05/04/2020 Time: 07:38 Bed 4 Private MD: [facility] ED Physician Lazaro Harry HPI: 05/04 08:15 This 89 yrs old Female presents to ER via Wheelchair with complaints of tw4 Slurred Speech, Weakness, Dizziness. 08:15 The patient presents to the emergency department with weakness of the entire body, tw4 generalized weakness, difficulty standing. Onset: The symptoms/episode began/occurred this morning, today. Context: occurred at home. Associated signs and symptoms: The patient has no apparent associated signs or symptoms. Severity of symptoms: At their worst the symptoms were mild in the emergency department the symptoms are unchanged. Patient's baseline: Neuro: alert and fully oriented, Motor: no deficits, Ambulation: walks without assistance. The patient has not experienced similar symptoms in the past. 08:42 Current symptoms: leg weakness. Pt according to daughter awoke with symptoms.... last tw4 know normal last night. Historical: - Allergies: 07:59 No Known Allergies; ph - Home Meds: 07:59 allopurinol 100 mg Oral tab [Active]; amlodipine 5 mg tab [Active]; ezetimibe 10 mg ph Oral [Active]; furosemide 40 mg Oral tab 1 tab once daily [Active]; gabapentin 100 mg Oral cap [Active]; hydralazine 10 mg Oral tab [Active]; metoprol Succinate ER 100 mg [Active]; - PMHx: 07:59 Hyperlipidemia; Hypertension; TIA; ph - Immunization history:: Adult Immunizations unknown. - Social history:: Smoking status: Patient denies any tobacco usage or history of. ROS: 08:15 Constitutional: Negative for fever, chills, and weight loss, Eyes: Negative for injury, tw4 pain, redness, and discharge, Cardiovascular: Negative for chest pain, palpitations, and edema, Respiratory: Negative for shortness of breath, cough, wheezing, and pleuritic chest pain, Abdomen/GI: Negative for abdominal pain, nausea, vomiting, diarrhea, and constipation, Back: Negative for injury and pain, MS/Extremity: Negative for injury and deformity. 08:15 Neuro: Positive for dizziness, weakness, Negative for altered mental status, gait disturbance, headache, hearing loss, numbness, seizure activity, speech changes, syncope, near syncope. Exam: 08:15 Constitutional: This is a well developed, well nourished patient who is awake, alert, tw4 and in no acute distress. Head/Face: Normocephalic, atraumatic. Chest/axilla: Normal chest wall appearance and motion. Nontender with no deformity. No lesions are appreciated. Cardiovascular: Regular rate and rhythm with a normal S1 and S2. No gallops, murmurs, or rubs. Normal PMI, no JVD. No pulse deficits. Respiratory: Lungs have equal breath sounds bilaterally, clear to auscultation and percussion. No rales, rhonchi or wheezes noted. No increased work of breathing, no retractions or nasal flaring. Abdomen/GI: Soft, non-tender, with normal bowel sounds. No distension or tympany. No guarding or rebound. No evidence of tenderness throughout. Back: No spinal tenderness. No costovertebral tenderness. Full range of motion. Skin: Warm, dry with normal turgor. Normal color with no rashes, no lesions, and no evidence of cellulitis. MS/ Extremity: Pulses equal, no cyanosis. Neurovascular intact. Full, normal range of motion. 08:15 Neuro: Orientation: is normal, Mentation: is normal, Motor: Strength is 3/5 in the left leg. Vital Signs: 07:53 BP 144 / 52; Pulse 62; Resp 20; Pulse Ox 98% on R/A; Weight 78.93 kg; Height 5 ft. 2 ph in. (157.48 cm); 08:59 BP 123 / 47; Pulse 61; Resp 18; Pulse Ox 95% on R/A; Pain 0/10; ph 10:00 BP 131 / 56; Pulse 66; Resp 18; Pulse Ox 95% on R/A; ph 11:00 BP 125 / 56; Pulse 59; Resp 18; Pulse Ox 94% on R/A; ph 12:15 BP 127 / 54; Pulse 62; Resp 17; Pulse Ox 95% on R/A; ph 14:25 BP 140 / 59; Pulse 64; Resp 12; Pulse Ox 91% on R/A; mh5 15:31 BP 137 / 70; Pulse 65; Resp 16; Pulse Ox 95% on R/A; ph 16:30 BP 152 / 82; Pulse 65; Resp 18; Temp 97.8; Pulse Ox 92% on R/A; ph 07:53 Body Mass Index 31.82 (78.93 kg, 157.48 cm) ph NIH Stroke Scale Scores: 07:50 NIHSS Score: 1 ph 08:42 NIHSS Score: 3 tw4 MDM: 07:43 Patient medically screened. tw4 08:42 Data reviewed: vital signs, nurses notes. Data interpreted: recruitment consultant: Pulse tw4 oximetry:. Counseling: I had a detailed discussion with the patient and/or guardian regarding: the historical points, exam findings, and any diagnostic results supporting the discharge/admit diagnosis, lab results, radiology results. 08:44 Other consultation: D/W Dr Phan Neurology at 0825 will hold TPA due to unknown tw4 onset of symptoms. 05/04 07:42 Order name: Basic Metabolic Panel tw4 05/04 07:42 Order name: CBC with Diff tw4 05/04 07:42 Order name: Protime (+inr); Complete Time: 11:04 tw4 05/04 07:42 Order name: Ptt, Activated; Complete Time: 11:04 tw4 05/04 07:43 Order name: Basic Metabolic Panel; Complete Time: 12:34 EDMS 05/04 07:43 Order name: CBC with Automated Diff; Complete Time: 11:03 EDMS 05/04 07:42 Order name: CT Stroke Brain w/o Contrast; Complete Time: 08:31 tw4 05/04 07:42 Order name: Stroke CXR 1 View; Complete Time: 11:03 tw4 05/04 07:57 Order name: Glucose, Ancillary Testing; Complete Time: 08:31 EDMS 05/04 09:50 Order name: CREATININE WHOLE BLOOD; Complete Time: 11:04 EDMS 05/04 14:52 Order name: SARS-COV-2 RT PCR EDMS 05/04 07:42 Order name: Call for Old Records; Complete Time: 08:03 tw4 05/04 07:42 Order name: Call for Old EKG; Complete Time: 08:03 tw4 05/04 07:42 Order name: EKG; Complete Time: 07:43 tw4 03/12 07:42 Order name: Accucheck; Complete Time: 08:01 05/04 07:42 Order name: Cardiac monitoring; Complete Time: 08:01 05/04 07:42 Order name: EKG - Nurse/Tech; Complete Time: 08:01 05/04 07:42 Order name: IV Saline Lock; Complete Time: 08:01 05/04 07:42 Order name: Labs collected and sent; Complete Time: 08:01 05/04 07:42 Order name: NPO; Complete Time: 08:01 05/04 07:42 Order name: O2 Per Protocol; Complete Time: 08:01 05/04 07:42 Order name: O2 Sat Monitoring; Complete Time: 08:01 05/04 09:32 Order name: MRI - Brain Wo Cont; Complete Time: 11:03 tw4 EC:17 Rhythm is regular. QRS [place] is Normal. AR interval is prolonged. QRS interval is tw4 normal. QT interval is normal. No Q waves. T waves are Normal. No ST changes noted. Clinical impression: 1st degree heart block. Interpreted by me. Reviewed by me. Administered Medications: 08:57 Drug: Zofran (Ondansetron) 4 mg Route: IVP; Site: left antecubital; ph 09:30 Follow up: Response: No adverse reaction; Nausea is decreased ph 12:48 Drug: PlaVIX 150 mg Route: PO; hb 17:01 Follow up: Response: No adverse reaction ph 12:49 Drug: Aspirin 325 mg Route: PO; hb 17:01 Follow up: Response: No adverse reaction ph Point of Care Testing: Blood Glucose: 07:42 Blood Glucose: 114 mg/dL; hb Ranges: Critical Glucose Levels:Adult <50 mg/dl or >400 mg/dl <40 mg/dl or >180 mg/dl Disposition: 05/04/20 12:41 Hospitalization ordered by Conor Ho for Inpatient Admission. Preliminary diagnosis are Acute kidney failure, unspecified, TRANSIENT ISCHEMIC EPISODE. - Bed requested for Telemetry/MedSurg (Inpatient). - Status is Inpatient Admission. ph - Condition is Stable. - Problem is new. - Symptoms are unchanged. NIH Stroke Scale - NIH Stroke Score Date: 05/04/2020 Time: 07:50 Total Score = 1 1a. Level of Consciousness (LOC) - 0(Alert) 1b. Level of Consciousness (LOC) (Year \T\ Age) - 0(Both) 1c. LOC Commands (Open \T\ Closes Eyes/Plastic Die Maker Apprentice) - 0(Both) 2. Best Gaze (Lateral Gaze Paresis) - 0(Normal) 3. Visual Field Loss - 0(No visual loss) 4. Facial Palsy - 0(Normal) 5a. Left Arm: Motor (10-second hold) - 0(No drift) 5b. Right Arm: Motor (10-second hold) - 0(No drift) 6a. Left Leg: Motor (5-second hold - always test supine) - 1(Drift) 6b. Right Leg: Motor (5-second hold - always test supine) - 0(No drift) 7. Limb Ataxia (finger/nose \T\ heel/tenorio - test with eyes open) - 0(Absent) 8. Sensory Loss (pinprick arms/legs/face) - 0(Normal) 9. Best Language: Aphasia (description/naming/reading) - 0(No aphasia) 10. Dysarthria (speech clarity - read or repeat words) - 0(Normal) 11. Extinction and Inattention (visual/tactile/auditory/spatial/personal) - 0(No abnormality) Initials: NIH Stroke Scale - NIH Stroke Score Date: 05/04/2020 Time: 08:42 Total Score = 3 1a. Level of Consciousness (LOC) - 0(Alert) 1b. Level of Consciousness (LOC) (Year \T\ Age) - 0(Both) 1c. LOC Commands (Open \T\ Closes Eyes/Plastic Die Maker Apprentice) - 0(Both) 2. Best Gaze (Lateral Gaze Paresis) - 0(Normal) 3. Visual Field Loss - 0(No visual loss) 4. Facial Palsy - 0(Normal) 5a. Left Arm: Motor (10-second hold) - 1(Drift) 5b. Right Arm: Motor (10-second hold) - 0(No drift) 6a. Left Leg: Motor (5-second hold - always test supine) - 2(Drift, some effort against gravity) 6b. Right Leg: Motor (5-second hold - always test supine) - 0(No drift) 7. Limb Ataxia (finger/nose \T\ heel/tenorio - test with eyes open) - 0(Absent) 8. Sensory Loss (pinprick arms/legs/face) - 0(Normal) 9. Best Language: Aphasia (description/naming/reading) - 0(No aphasia) 10. Dysarthria (speech clarity - read or repeat words) - 0(Normal) 11. Extinction and Inattention (visual/tactile/auditory/spatial/personal) - 0(No abnormality) Initials: tw4 Signatures: Dispatcher [employer] [facility] Marguerite Moon RN RN Sun Patten RN RN Alyssa Chairez RN RN hb Wadley, Terrence, MD MD tw4 Kelley Nuno Corrections: (The following items were deleted from the chart) 08:40 08:32 MR STROKE PROTOCOL+MRI.RAD.BRZ ordered. EDNM EDMS 09:35 08:39 Head Angio+CT.RAD.BRZ ordered. EDNM EDMS 09:35 08:39 Neck Angio+CT.RAD.BRZ ordered. EDNM EDNM 14:11 13:28 CORONAVIRUS+MR.LAB.BRZ ordered. EDNM EDNM 15:54 12:41 Hospitalization Ordered by Conor Ho for Inpatient Admission. Preliminary diagnosis is Acute kidney failure, unspecified; TRANSIENT ISCHEMIC EPISODE. Bed requested for Telemetry/MedSurg (Inpatient). Status is Inpatient Admission. Condition is Stable. Problem is new. Symptoms are unchanged. [facility] 17:01 15:54 05/04/2020 12:41 Hospitalization Ordered by Conor Ho for Inpatient Admission. Preliminary diagnosis is Acute kidney failure, unspecified; TRANSIENT ISCHEMIC EPISODE. Bed requested for Telemetry/MedSurg (Inpatient). Status is Inpatient Admission. Condition is Stable. Problem is new. Symptoms are unchanged.
--- NOTE | 2020-05-04 12:42 | ER ---
Nurse's Notes [facility] Name: Crista Ivy Age: 89 yrs Sex: Female : 1930 Arrival Date: 05/04/2020 Time: 07:38 Bed 4 Private MD: Jignesh Quintanilla Diagnosis: Acute kidney failure, unspecified;TRANSIENT ISCHEMIC EPISODE Presentation: 05/04 07:53 Chief complaint: Patient states: Generalized weakness that began this morning upon ph waking, states, " I tried to get out of bed but my legs were so weak and they were just flopping everywhere." Reports feeling normal when she went to bed last night, states , " I went to the Dr yesterday and he gave me antibiotics for an infection in my leg." Pt also reports nausea. Coronavirus screen: Client denies travel out of the [place] in the last 14 days. At this time, the client does not indicate any symptoms associated with coronavirus-19. Ebola Screen: No symptoms or risks identified at this time. No acute neurological deficit is noted. Pre-hospital glucose is not applicable to this patient. Initial Sepsis Screen: Does the patient meet any 2 criteria? No. Patient's initial sepsis screen is negative. Does the patient have a suspected source of infection? Yes: Skin breakdown/wound. Risk Assessment: Do you want to hurt yourself or someone else? Patient reports no desire to harm self or others. Onset of symptoms was May 04, 2020. 07:53 Method Of Arrival: Wheelchair 07:53 Acuity: RENETTA 3 ph Stroke Activation: Symptom onset > 6 hours Physician: Stroke Attending; Name: ; Notified At: ; Arrived At: Physician: Chief Stroke Resident; Name: ; Notified At: ; Arrived At: Physician: Stroke Resident; Name: ; Notified At: ; Arrived At: Physician: ED Attending; Name: ; Notified At: ; Arrived At: Physician: ED Resident; Name: ; Notified At: ; Arrived At: Historical: - Allergies: :59 No Known Allergies; ph - Home Meds: :59 allopurinol 100 mg Oral tab [Active]; amlodipine 5 mg tab [Active]; ezetimibe 10 mg ph Oral [Active]; furosemide 40 mg Oral tab 1 tab once daily [Active]; gabapentin 100 mg Oral cap [Active]; hydralazine 10 mg Oral tab [Active]; metoprol Succinate ER 100 mg [Active]; - PMHx: 07:59 Hyperlipidemia; Hypertension; TIA; ph - Immunization history:: Adult Immunizations unknown. - Social history:: Smoking status: Patient denies any tobacco usage or history of. Screenin:01 Abuse screen: Denies threats or abuse. Denies injuries from another. Nutritional hb screening: No deficits noted. Tuberculosis screening: No symptoms or risk factors identified. Fall Risk Total Howard Fall Scale indicates High Risk Score (45 or more points). Fall prevention measures have been instituted. Side Rails Up X 2 Frequent Obs/Assessments Occuring As available patient and family educated on Fall Prevention Program and Strategies. Assessment: 07:50 VAN Scoring: Arm Drift: Patients demonstrates NO arm weakness. Patient is VAN Negative. ph Reassessment: Dr Harry at bedside to assess pt. General: Appears in no apparent distress. Behavior is cooperative, appropriate for age, anxious, Denies fever. Pain: Denies pain. Neuro: Level of Consciousness is awake, alert, obeys commands, Oriented to person, place, time, Appropriate for age Derivatives Trader are equal bilaterally Moves all extremities. Facial symmetry appears normal, Facial symmetry: tongue is midline, Reports dizziness, weakness " in both legs and all over". Cardiovascular: Capillary refill < 3 seconds in bilateral fingers Patient's skin is warm and dry. Edema is 2+ to left ankle, left foot, right ankle and right foot left lower leg also red in appearance. Respiratory: Airway is patent. GI: Reports nausea, Patient currently denies abdominal pain, diarrhea, vomiting. : No signs and/or symptoms were reported regarding the genitourinary system. Derm: Skin is intact, Skin is pink, warm \\T\\ dry. Musculoskeletal: Circulation, motion, and sensation intact. Range of motion: intact in all extremities. 07:56 Reassessment: PT TO CT VIA STRETCHER. hb 08:58 Reassessment: Patient appears in no apparent distress at this time. Patient and/or ph family updated on plan of care and expected duration. Pain level reassessed. Pt resting quietly w/ eyes closed, awakens easily to verbal stimuli, reports mild dizziness and nausea, denies pain, medicated for nausea w/ Zofran IVP, awaiting additional imaging studies, VSS. 10:00 Reassessment: Patient appears in no apparent distress at this time. Pt taken to MRI via wheelchair. 11:30 Reassessment: Patient appears in no apparent distress at this time. Patient and/or ph family updated on plan of care and expected duration. Pain level reassessed. Patient is alert, oriented x 3, equal unlabored respirations, skin warm/dry/pink. 12:00 Patient has been NPO before screening. The patient is alert, and able to follow commands. The patient does not exhibit slurred or garbled speech. The patient is not exhibiting difficulty speaking. The patient does not exhibit difficulty understanding words. The patient is able to swallow own secretions with no drooling or need for suction. Patient tolerated one teaspoon of water. No drooling, immediate coughing, gurgling, or clearing of the throat was noted. The patient tolerated 90mL of water. No drooling, immediate coughing, gurgling, or clearing of the throat was noted. The patient passed the bedside swallow screening. Oral medications may be given as ordered. Contact Physician for further diet orders. Provider notified of bedside swallow screening results: Lazaro Harry MD. 13:00 Reassessment: Patient appears in no apparent distress at this time. Patient and/or ph family updated on plan of care and expected duration. Pain level reassessed. Patient is alert, oriented x 3, equal unlabored respirations, skin warm/dry/pink. 14:00 Reassessment: Patient appears in no apparent distress at this time. Patient and/or ph family updated on plan of care and expected duration. Pain level reassessed. Patient is alert, oriented x 3, equal unlabored respirations, skin warm/dry/pink. 15:31 Reassessment: Patient appears in no apparent distress at this time. Patient and/or ph family updated on plan of care and expected duration. Pain level reassessed. Patient is alert, oriented x 3, equal unlabored respirations, skin warm/dry/pink. 16:58 Reassessment: Patient appears in no apparent distress at this time. Patient and/or ph family updated on plan of care and expected duration. Pain level reassessed. Patient is alert, oriented x 3, equal unlabored respirations, skin warm/dry/pink. Vital Signs: 07:53 BP 144 / 52; Pulse 62; Resp 20; Pulse Ox 98% on R/A; Weight 78.93 kg; Height 5 ft. 2 ph in. (157.48 cm); 08:59 BP 123 / 47; Pulse 61; Resp 18; Pulse Ox 95% on R/A; Pain 0/10; ph 10:00 BP 131 / 56; Pulse 66; Resp 18; Pulse Ox 95% on R/A; ph 11:00 BP 125 / 56; Pulse 59; Resp 18; Pulse Ox 94% on R/A; ph 12:15 BP 127 / 54; Pulse 62; Resp 17; Pulse Ox 95% on R/A; ph 14:25 BP 140 / 59; Pulse 64; Resp 12; Pulse Ox 91% on R/A; mh5 15:31 BP 137 / 70; Pulse 65; Resp 16; Pulse Ox 95% on R/A; ph 16:30 BP 152 / 82; Pulse 65; Resp 18; Temp 97.8; Pulse Ox 92% on R/A; ph 07:53 Body Mass Index 31.82 (78.93 kg, 157.48 cm) ph NIH Stroke Scale Scores: 07:50 NIHSS Score: 1 ph 08:42 NIHSS Score: 3 tw4 ED Course: 07:38 Patient arrived in ED. mr 07:38 Jignesh Quintanilla DO is Private Physician. mr 07:39 Lazaro Harry MD is Attending Physician. tw4 07:56 Arm band placed on. hb 07:58 Triage completed. ph 08:01 CT Stroke Brain w/o Contrast In Process Unspecified. EDMS 08:03 Patient has correct armband on for positive identification. Placed in gown. Bed in low ph position. Call light in reach. Side rails up X2. traffic monitor specialist on. Pulse ox on. NIBP on. Door closed. Noise minimized. 08:11 Stroke CXR 1 View In Process Unspecified. EDMS 08:19 Sun Patten, RN is Primary Nurse. ph 10:11 MRI - Brain Wo Cont In Process Unspecified. EDMS 12:41 Conor Ho is Hospitalizing Provider. tw4 14:03 COVID swab sent to lab. mh5 14:26 Basic Metabolic Panel Sent. mh5 14:26 CBC with Diff Sent. mh5 16:11 No provider procedures requiring assistance completed. ph 17:01 Patient admitted, IV remains in place. ph Administered Medications: 08:57 Drug: Zofran (Ondansetron) 4 mg Route: IVP; Site: left antecubital; ph 09:30 Follow up: Response: No adverse reaction; Nausea is decreased ph 12:48 Drug: PlaVIX 150 mg Route: PO; hb 17:01 Follow up: Response: No adverse reaction ph 12:49 Drug: Aspirin 325 mg Route: PO; hb 17:01 Follow up: Response: No adverse reaction ph Point of Care Testing: Blood Glucose: 07:42 Blood Glucose: 114 mg/dL; hb Ranges: Outcome: 12:41 Decision to Hospitalize by Provider. tw4 17:00 Admitted to Tele accompanied by tech, via stretcher, with chart. ph 17:00 Condition: stable 17:00 Instructed on the need for admit. 17:01 Patient left the ED. NIH Stroke Scale - NIH Stroke Score Date: 05/04/2020 Time: 07:50 Total Score = 1 1a. Level of Consciousness (LOC) - 0(Alert) 1b. Level of Consciousness (LOC) (Year \\T\\ Age) - 0(Both) 1c. LOC Commands (Open \\T\\ Closes Eyes/Sweat Band Separator) - 0(Both) 2. Best Gaze (Lateral Gaze Paresis) - 0(Normal) 3. Visual Field Loss - 0(No visual loss) 4. Facial Palsy - 0(Normal) 5a. Left Arm: Motor (10-second hold) - 0(No drift) 5b. Right Arm: Motor (10-second hold) - 0(No drift) 6a. Left Leg: Motor (5-second hold - always test supine) - 1(Drift) 6b. Right Leg: Motor (5-second hold - always test supine) - 0(No drift) 7. Limb Ataxia (finger/nose \\T\\ heel/tenorio - test with eyes open) - 0(Absent) 8. Sensory Loss (pinprick arms/legs/face) - 0(Normal) 9. Best Language: Aphasia (description/naming/reading) - 0(No aphasia) 10. Dysarthria (speech clarity - read or repeat words) - 0(Normal) 11. Extinction and Inattention (visual/tactile/auditory/spatial/personal) - 0(No abnormality) Initials: NIH Stroke Scale - NIH Stroke Score Date: 05/04/2020 Time: 08:42 Total Score = 3 1a. Level of Consciousness (LOC) - 0(Alert) 1b. Level of Consciousness (LOC) (Year \\T\\ Age) - 0(Both) 1c. LOC Commands (Open \\T\\ Closes Eyes/Sweat Band Separator) - 0(Both) 2. Best Gaze (Lateral Gaze Paresis) - 0(Normal) 3. Visual Field Loss - 0(No visual loss) 4. Facial Palsy - 0(Normal) 5a. Left Arm: Motor (10-second hold) - 1(Drift) 5b. Right Arm: Motor (10-second hold) - 0(No drift) 6a. Left Leg: Motor (5-second hold - always test supine) - 2(Drift, some effort against gravity) 6b. Right Leg: Motor (5-second hold - always test supine) - 0(No drift) 7. Limb Ataxia (finger/nose \\T\\ heel/tenorio - test with eyes open) - 0(Absent) 8. Sensory Loss (pinprick arms/legs/face) - 0(Normal) 9. Best Language: Aphasia (description/naming/reading) - 0(No aphasia) 10. Dysarthria (speech clarity - read or repeat words) - 0(Normal) 11. Extinction and Inattention (visual/tactile/auditory/spatial/personal) - 0(No abnormality) Initials: tw4 Signatures: Dispatcher [employer] EDNM Eduardo Smitha PattenSun, RN RN Alyssa Quijano, Gisella Mott RN [facility] Lazaro Harry MD MD tw4 Corrections: (The following items were deleted from the chart) 14:11 14:03 CORONAVIRUS+LAB.DREADZ drawn and sent. [address]
--- NOTE | 2020-05-04 14:38 | P.HP ---
Certification for Inpatient Patient admitted to: Observation With expected LOS: <2 Midnights Practitioner: I am a practitioner with admitting privileges, knowledge of patient current condition, hospital course, and medical plan of care. Services: Services provided to patient in accordance with Admission requirements found in Title 42 Section 412.3 of the Code of Federal Regulations Patient History Date of Service: 05/04/20 Reason for admission: Generalized weakness History of Present Illness: 89-year-old woman with a history of hypertension, lower extremity lymphedema, chronic kidney disease stage 2 presented to the emergency department with a complaint of generalized weakness, and slurred speech. Patient reports she could not get up from bed this morning due to the weakness. She denied any confusion, she denied any lateralizing weakness, no visual changes. Patient states she started taking antibiotics the night before and attributes in her weakness to the antibiotics. CT head done in the emergency department did not show any acute CVA. MRI of the brain reports no acute CVA. She has anemia. UA is not done yet. His serum creatinine is elevated above baseline indicating dehydration. Patient is hospitalized for further management. Allergies No Known Allergies Allergy (Verified 10/10/19 15:46) Home Medications: Allopurinol 1 tab PO DAILY 10/10/19 Amlodipine [Norvasc] 5 mg PO DAILY 10/10/19 Ezetimibe [Zetia*] 1 tab PO DAILY 10/10/19 Furosemide [Lasix] 40 mg PO DAILY 10/10/19 Gabapentin [Neurontin] 100 mg PO BID 10/10/19 Hydralazine [Apresoline] 60 mg PO DAILY 10/10/19 Metoprolol Succinate [Toprol Xl] 100 mg PO DAILY 10/10/19 Furosemide [Lasix] 20 mg PO DAILY 30 Days #30 tab 10/13/19 Meclizine HCl [Antivert*] 12.5 mg PO TID #20 tab 10/13/19 - Past Medical/Surgical History -: Hypertension -: Hyperlipidemia -: CKD stage 2 - Family History Father -: Hypertension - Social History Smoking Status: Never smoker Alcohol use: No Place of Residence: Home Review of Systems Other: Except as documented, all other systems reviewed and negative. Physical Examination - Physical Exam General: Alert, In no apparent distress, Oriented x3 HEENT: Atraumatic, Normocephalic, PERRLA, Mucous membr. moist/pink, Sclerae nonicteric Neck: Supple, JVD not distended Respiratory: Clear to auscultation bilaterally, Normal air movement Cardiovascular: Regular rate/rhythm, Normal S1 S2, Edema (Left lower extremity.) Gastrointestinal: Normal bowel sounds, Soft and benign, Non-distended, No tenderness Musculoskeletal: No contractures, No tenderness Integumentary: Erythema (Mild erythema of left leg) Neurological: Normal speech, Normal strength at 5/5 x4 extr, Cranial nerves 3-12 intact - Studies Laboratory Data (last 24 hrs) 05/04/20 07:52: PT 10.1, INR 0.88, APTT 25.4 05/04/20 07:52: WBC 8.90, Hgb 9.7 L, Hct 29.6 L, Plt Count 237 05/04/20 07:52: Sodium 139, Potassium 4.0, BUN 59 H, Creatinine 2.64 H, Glucose 113 H Assessment and Plan - Problems (Diagnosis) (1) Generalized weakness Current Visit: Yes Status: Acute (2) Dysarthria Current Visit: Yes Status: Acute (3) Acute worsening of stage 3 chronic kidney disease Current Visit: Yes Status: Acute (4) HLD (hyperlipidemia) Current Visit: No Status: Chronic (5) HTN (hypertension) Current Visit: No Status: Chronic - Plan Place patient under observation. Hydrate briefly with IV normal saline. Monitor renal function for improvement. Generalize weakness probably secondary to dehydration. Acute CVA is ruled out. Could be TIA. Patient will be placed on aspirin and statin. Check lipid profile. COVID 19 is negative. Check urinalysis. - Advance Directives Does patient have a Living Will: No Does patient have a Durable POA for Healthcare: No
[2020-05-04 17:28] VITALS: BMI 30.9
[2020-05-04] MEDS ORDERED: ACETAMINOPHEN 500 MG TAB PO PRN (17:43)
[2020-05-04] MEDS ORDERED: NA CHLORIDE 0.9% 1,000 ML IV SCH (17:43)
[2020-05-04] MEDS ORDERED: ONDANSETRON 4 MG/2 ML VIAL IV PRN (17:43)
[2020-05-04] MEDS ORDERED: ASPIRIN EC 81 MG TAB PO ONE (18:00)
[2020-05-04] MEDS: HEPARIN 5000 UNIT/ML 1 ML VIAL SQ SCH (18:26)
[2020-05-04] MEDS: ATORVASTATIN 20 MG TAB PO SCH ×2 (21:00→21:59)
[2020-05-05] MEDS: HEPARIN 5000 UNIT/ML 1 ML VIAL SQ SCH ×3 (01:00→16:57)
[2020-05-05 05:47] LABS: Urine Appearance CLEAR; Urine Bilirubin NEGATIVE (NEG); Urine Blood NEGATIVE (NEG); Urine Color YELLOW; Urine Glucose NEGATIVE (NEG); Urine Protein 1+ (NEG); Urine Urobilinogen 0.2 mg/dL (0.2-1.0)
[2020-05-05 06:14] LABS: Urine Bacteria <20 /HPF (<20); Urine RBC NONE SEEN /HPF (NONE SEEN)
[2020-05-05 07:29] LABS: Absolute Lymphocytes (CBC) 1.2 K/uL (0.7-4.9); Hematocrit 28.1 % (36.0-45.0); Lymphocytes % 16.8 % (15.3-44.8); MPV 9.9 fL (7.6-11.3); RBC Red Blood Cell Count 3.24 M/uL (3.86-4.86)
[2020-05-05] MEDS: ASPIRIN EC 81 MG TAB PO SCH (07:43)
[2020-05-05 07:50] LABS: Magnesium 2.6 mg/dL (1.8-2.4); Phosphorus 4.3 mg/dL (2.5-4.9); Potassium 4.6 mmol/L (3.5-5.1); Thyroid Stimulating Hormone 1.63 uIU/mL (0.360-3.740)
--- NOTE | 2020-05-05 08:32 | EKG ---
Test Date: 2020-05-04 Test Time: 07:51:59 Transportation Engineer: YESSENIA MEASUREMENT RESULTS: Intervals: Rate: 63 SD: 210 QRSD: 82 QT: 422 QTc: 431 [place]: P: 77 SD: 210 QRS: 72 T: 41 INTERPRETIVE STATEMENTS: Sinus rhythm with 1st degree AV block Otherwise normal ECG Compared to ECG 10/10/2019 12:01:36 Right-axis deviation no longer present Electronically Signed On 05-05-20 08:29:23 MONOGRAM TECHNICIAN by Sincere Grajeda
[2020-05-05] MEDS: carvediloL 25 MG TAB PO SCH (11:22)
[2020-05-05] MEDS: HYDRALAZINE HCL 10 MG TABLET PO SCH (11:23)
[2020-05-05] MEDS: CALCITROL 0.25 MCG CAP PO SCH (11:26)
--- NOTE | 2020-05-05 13:05 | P.PN ---
Subjective Date of Service: 05/05/20 Chief Complaint: Generalized weakness Patient reports feeling better. She felt dizzy while ambulating with a walker during physical therapist today. Her blood pressure is elevated. Patient is requiring oxygen to keep SaO2 greater than 90%. She states her speech is normal. Physical Examination - Vital Signs Temperature: 98.7 F Blood Pressure: 140/67 Pulse: 72 Respirations: 18 Pulse Ox (%): 90 - Physical Exam General: Alert, In no apparent distress, Oriented x3 HEENT: Normocephalic, Mucous membr. moist/pink, EOMI, Sclerae nonicteric Neck: Supple, JVD not distended Respiratory: Clear to auscultation bilaterally, Normal air movement Cardiovascular: No edema, Regular rate/rhythm, Normal S1 S2 Gastrointestinal: Soft and benign, Non-distended, No tenderness Musculoskeletal: No swelling, No tenderness Integumentary: No rashes, No erythema Neurological: Normal speech, Normal strength at 5/5 x4 extr, Cranial nerves 3-12 intact Assessment And Plan - Current Problems (Diagnosis) (1) Generalized weakness Current Visit: Yes Status: Acute (2) Dysarthria Current Visit: Yes Status: Acute (3) Acute worsening of stage 3 chronic kidney disease Current Visit: Yes Status: Acute (4) HLD (hyperlipidemia) Current Visit: No Status: Chronic (5) HTN (hypertension) Current Visit: No Status: Chronic - Plan UA: No evidence of UTI. Serum creatinine improving IV fluid discontinued. Continue to hold lasix. Generalize weakness probably secondary to dehydration. Acute CVA is ruled out. Could be TIA. Neurologic symptoms resolved. Patient experiencing dizziness. Also hypoxic. Start bronchodilators. Obtain chest x-ray. Supplemental oxygen as needed. Resume home antihypertensives. Continue aspirin and statin. Continue PT.
--- NOTE | 2020-05-05 14:07 | RAD REPORT ---
EXAM DESCRIPTION: RAD - Chest Single View - 05/05/2020 1:43 pm CLINICAL HISTORY: Hypoxia Chest pain. COMPARISON: Chest Single View dated 05/04/2020; Chest Single View dated 10/10/2019; Chest Single View dated 05/13/2018; Brain Wo Cont dated 05/04/2020 FINDINGS: Portable technique limits examination quality. Mild interstitial pulmonary edema is seen. The heart is moderately enlarged in size. No displaced fra ctures.Aortic atherosclerosis. IMPRESSION: Mild CHF pattern, unchanged since yesterday's study.
[2020-05-06] MEDS: HEPARIN 5000 UNIT/ML 1 ML VIAL SQ SCH ×2 (01:37→08:10)
[2020-05-06 06:40] LABS: Potassium 4.2 mmol/L (3.5-5.1)
[2020-05-06 06:44] LABS: Absolute Lymphocytes (CBC) 1.7 K/uL (0.7-4.9); Basophils % 0.9 % (0-1.3); Hematocrit 29.2 % (36.0-45.0); Lymphocytes % 21.1 % (15.3-44.8); MPV 10.1 fL (7.6-11.3); RBC Red Blood Cell Count 3.35 M/uL (3.86-4.86)
[2020-05-06] MEDS: EZETIMIBE 10 MG TAB PO SCH (08:06)
[2020-05-06] MEDS: HYDRALAZINE HCL 10 MG TABLET PO SCH (08:07)
[2020-05-06] MEDS: carvediloL 25 MG TAB PO SCH (08:07)
[2020-05-06] MEDS: ASPIRIN EC 81 MG TAB PO SCH (08:07)
[2020-05-06] MEDS: allopurinoL 100 MG TAB PO SCH (08:08)
--- NOTE | 2020-05-06 10:22 | EKG ---
Test Date: 2020-05-06 Test Time: 00:48:10 Piano Technician: RT-O MEASUREMENT RESULTS: Intervals: Rate: 94 [place]: QRSD: 78 QT: 346 QTc: 432 [place]: P: CA: QRS: 83 T: 30 INTERPRETIVE STATEMENTS: Atrial fibrillation with premature ventricular or aberrantly conducted complexes Low voltage QRS Cannot rule out Anterior infarct, age undetermined Abnormal ECG Compared to ECG 05/04/2020 07:51:59 Ventricular premature complex(es) now present Low QRS voltage now present Myocardial infarct finding now present Sinus rhythm no longer present First degree AV block no longer present Electronically Signed On 05-06-20 10:21:14 CDT by Sincere Grajeda
--- NOTE | 2020-05-06 12:32 | P.PN ---
Subjective Date of Service: 05/06/20 Chief Complaint: Generalized weakness Patient reports feeling better. She felt dizzy while ambulating with a walker during physical therapist today. Patient stated the dizziness is not new Her blood pressure is elevated. Patient is currently maintained on 2 L oxygen by nasal cannula. Patient developed atrial fibrillation last night-new onset. Her speech is normal. Physical Examination - Vital Signs Temperature: 98.8 F Blood Pressure: 156/75 Pulse: 75 Respirations: 18 Pulse Ox (%): 94 - Physical Exam General: Alert, In no apparent distress, Oriented x3 HEENT: Mucous membr. moist/pink Neck: Supple, JVD not distended Respiratory: Clear to auscultation bilaterally, Normal air movement Cardiovascular: No edema, Normal S1 S2, Irregular heart rate/rhythm Gastrointestinal: Soft and benign, Non-distended, No tenderness Musculoskeletal: No swelling, No tenderness Integumentary: No rashes, No erythema Neurological: Normal speech, Normal strength at 5/5 x4 extr, Cranial nerves 3-12 intact - Studies Laboratory Data (last 24 hrs) 05/06/20 05:58: Sodium 142, Potassium 4.2, BUN 44 H, Creatinine 2.02 H, Glucose 92 05/06/20 05:58: WBC 7.80, Hgb 9.2 L, Hct 29.2 L, Plt Count 222 Assessment And Plan - Current Problems (Diagnosis) (1) Generalized weakness Current Visit: Yes Status: Acute (2) Dysarthria Current Visit: Yes Status: Acute (3) Acute worsening of stage 3 chronic kidney disease Current Visit: Yes Status: Acute (4) HLD (hyperlipidemia) Current Visit: No Status: Chronic (5) HTN (hypertension) Current Visit: No Status: Chronic - Plan UA: No evidence of UTI. Serum creatinine continued to improve. IV fluid discontinued. Generalize weakness probably secondary to dehydration. Acute CVA is ruled out. Could be TIA. Neurologic symptoms resolved. Patient with new onset afib. Acute diastolic heart failure. Lasix prn. Obtain echocardiogram. Cardiology consult. Continue bronchodilators. Weaned off oxygen as tolerated. Obtain chest x-ray. Continue home antihypertensives. Continue aspirin and statin. PT.
[2020-05-06] MEDS: FUROSEMIDE 40 MG/4 ML VIAL IV SCH ×2 (12:43→16:16)
[2020-05-06] MEDS: APIXABAN 2.5 MG TABLET PO SCH (20:31)
[2020-05-07 04:18] LABS: Magnesium 2.4 mg/dL (1.8-2.4); Phosphorus 3.5 mg/dL (2.5-4.9); Potassium 3.8 mmol/L (3.5-5.1)
[2020-05-07] MEDS: allopurinoL 100 MG TAB PO SCH (09:00)
[2020-05-07] MEDS: HYDRALAZINE HCL 10 MG TABLET PO SCH (09:03)
[2020-05-07] MEDS: EZETIMIBE 10 MG TAB PO SCH (09:04)
[2020-05-07] MEDS: carvediloL 25 MG TAB PO SCH (09:04)
[2020-05-07] MEDS: ASPIRIN EC 81 MG TAB PO SCH (09:04)
[2020-05-07] MEDS: CALCITROL 0.25 MCG CAP PO SCH ×2 (09:05→12:00)
[2020-05-07] MEDS: APIXABAN 2.5 MG TABLET PO SCH (09:05)
[2020-05-07 12:41] VITALS: O2SAT 90
--- NOTE | 2020-05-07 13:02 | CON ---
Date of Consultation: 05/06/[address] Ho on 05/04/2020. I saw the patient on 05/06/2020. Reason For Consultation: Paroxysmal atrial fibrillation. History Of Present Illness: Ms. Ivy is an 89-year-old woman, came in with acute kidney injury, weakness, slurred speech, probably TIA and was noted to have paroxysmal atrial fibrillation. This i s the first time this has ever been documented. The patient denied any chest pain, nausea, vomiting, diaphoresis, PND, orthopnea, pedal edema, palpitations, or syncope. Past Medical History: History of hypertension, dyslipidemia, and TIA. Allergies: SHE IS ALLERGIC TO LIPITOR. Review of Systems: Negative. Social History: Negative. Family History: Noncontributory. Medications: At home include allopurinol, hydralazine, , Coreg, Zetia, Lasix, and Neuronti n. Physical Examination: Vital Signs: Stable. Afebrile. HEENT: Negative. Neck: Supple with no bruit. Chest: Clear to auscultation and percussion. Cardiac: Revealed regular rhythm and rate. No murmurs. No gallops. No rubs. Abdomen: Benign. Extremities: Revealed no clubbing, cyanosis, or edema. Neurological: She was nonfocal. Skin: Warm and dry. Diagnostic Data: Showed her creatinine is 2.02. Last EKG with sinus rhythm with nonspecific changes . Hemoglobin was 5.3. Chest x-ray showed mild failure. CT of her head was negative. MRI was negat marcin. The patient is presently on heparin subcu, aspirin and her home medications. Impression: 1.Transient ischemic attack secondary to paroxysmal atrial fibrillation. The patient needs to be on anticoagulation, preferably Eliquis 2.5 b.i.d. considering her age and renal function. Echocardiogr am is pending. Her heart rate is reasonable. . 2.Hypertension, well controlled. 3.Dyslipidemia, well controlled. 4.Neuropathy. 5.Anemia. 6.Mild congestive heart failure. 7.Allergic to statin. We will see what the echocardiogram shows and anticoagulate. Consider discha rge after her echocardiogram. She follows up with Dr. Quintanilla and Dr. Blount. We will see her in th e office in the next 2 weeks. DIRK/DARYL Voice ID: [id number] Report ID: [id number]
--- NOTE | 2020-05-07 15:36 | P.DS ---
Admission Date: 05/06/20 Discharge Date: 05/07/20 Disposition: DC HOME/HOME HEALTH CARE Discharge Condition: FAIR Reason for Admission: Generalized weakness - Problems (1) Generalized weakness Current Visit: Yes Status: Acute (2) Dysarthria Current Visit: Yes Status: Acute (3) Acute worsening of stage 3 chronic kidney disease Current Visit: Yes Status: Acute (4) HLD (hyperlipidemia) Current Visit: No Status: Chronic (5) HTN (hypertension) Current Visit: No Status: Chronic (6) Acute on chronic diastolic heart failure Current Visit: Yes Status: Acute Brief History of Present Illness: 89-year-old woman with a history of hypertension, lower extremity lymphedema, chronic kidney disease stage 2 presented to the emergency department with a complaint of generalized weakness, and slurred speech. Patient reports she could not get up from bed this morning due to the weakness. She denied any confusion, she denied any lateralizing weakness, no visual changes. Patient states she started taking antibiotics the night before and attributes in her weakness to the antibiotics. CT head done in the emergency department did not show any acute CVA. MRI of the brain reports no acute CVA. She has anemia. His serum creatinine is elevated above baseline indicating dehydration. Patient is hospitalized for further management. Hospital Course: Patient admitted to the medical floor and started on aspirin. She was briefly hydrated with IV normal saline because her renal function showed some degree of dehydration. Telemetry revealed atrial fibrillation. EKG done confirmed AFib. Cardiology was consulted, patient was seen by Dr. Grajeda recommended Eliquis anticoagulation for AFib. Patient described tree and other neurologic symptoms could be due to TIA. Her this country resolved within 24 hours. Patient seen by physical therapy and was able to ambulate with a walker. She developed hypoxia and she was treated with IV Lasix for CHF decompensation. Patient respiratory condition improved with IV Lasix. Her oxygen sat improved to 91% on room air. Overall patient has clinically improved to baseline and deemed stable for discharge. Her home Lasix therapy is resumed on discharge. Patient also prescribed aspirin and Eliquis. Noted allergy to Lipitor. Patient is currently on Zetia for hyperlipidemia. Vital Signs/Physical Exam: Temp Pulse Resp BP Pulse Ox 97.3 F 66 20 151/78 H 90 L 05/07/20 11:56 05/07/20 11:56 05/07/20 11:56 05/07/20 11:56 05/07/20 11:56 General: Alert, In no apparent distress, Oriented x3 HEENT: Mucous membr. moist/pink Neck: Supple, JVD not distended, No Thyromegaly Respiratory: Clear to auscultation bilaterally, Normal air movement Cardiovascular: No edema, Normal pulses, Regular rate/rhythm, Normal S1 S2 Gastrointestinal: Normal bowel sounds, Soft and benign, Non-distended, No tenderness Musculoskeletal: No swelling, No tenderness Integumentary: No rashes Neurological: Normal speech, Normal strength at 5/5 x4 extr Laboratory Data at Discharge: WBC 7.80 K/uL (4.3-10.9) 05/06/20 05:58 Hgb 9.2 g/dL (12.0-15.0) L 05/06/20 05:58 Hct 29.2 % (36.0-45.0) L 05/06/20 05:58 Plt Count 222 K/uL (152-406) 05/06/20 05:58 PT 10.1 SECONDS (9.5-12.5) 05/04/20 07:52 INR 0.88 05/04/20 07:52 APTT 25.4 SECONDS (24.3-36.9) 05/04/20 07:52 Sodium 141 mmol/L (136-145) 05/07/20 03:37 Potassium 3.8 mmol/L (3.5-5.1) 05/07/20 03:37 BUN 43 mg/dL (7-18) H 05/07/20 03:37 Creatinine 2.28 mg/dL (0.55-1.3) H 05/07/20 03:37 Glucose 99 mg/dL (74-106) 05/07/20 03:37 Phosphorus 3.5 mg/dL (2.5-4.9) 05/07/20 03:37 Magnesium 2.4 mg/dL (1.8-2.4) 05/07/20 03:37 Triglycerides 165 mg/dL (<150) H 05/05/20 06:44 Cholesterol 223 mg/dL (<200) H 05/05/20 06:44 HDL Cholesterol 43 mg/dL (40-60) 05/05/20 06:44 Cholesterol/HDL Ratio 5.19 05/05/20 06:44 Home Medications: Allopurinol 1 tab PO DAILY 10/10/19 Ezetimibe [Zetia*] 1 tab PO DAILY 10/10/19 Gabapentin [Neurontin*] 100 mg PO BID 10/10/19 Hydralazine [Apresoline*] 60 mg PO DAILY 10/10/19 Meclizine HCl [Antivert*] 12.5 mg PO TID #20 tab 10/13/19 Carvedilol [Coreg] 25 mg PO DAILY 05/04/20 Furosemide [Lasix*] 60 mg PO DAILY 05/04/20 calcitrioL [Rocaltrol] 0.25 mcg PO DIRECTED 05/04/20 Apixaban [Eliquis *] 2.5 mg PO BID #60 tablet 05/07/20 Aspirin [Aspirin EC 81 MG] 81 mg PO DAILY #30 tablet. 05/07/20 New Medications: Aspirin [Aspirin EC 81 MG] 81 mg PO DAILY #30 tablet. Apixaban [Eliquis *] 2.5 mg PO BID #60 tablet Diet: AHA Activity: Fall precautions Followup: Jignesh Quintanilla DO [Primary Care Provider] - JAYME BARRAZA [UNKNOWN] - 1-2 Weeks Time spent managing pt's care (in minutes): 38
[2020-05-07 16:58] VITALS: BP 187/81; TEMP 98.5
--- NOTE | 2020-05-08 09:10 | ECHO ---
HEIGHT: 5 ft 2 in WEIGHT: 175 lb 0 oz DATE OF STUDY: 05/07/[address]: jacqueline stewart 2-DIMENSIONAL: YES M.MODE: YES DOPPLER: YES COLOR FLOW: YES TDS: YES PORTABLE: DEFINITY: BUBBLE STUDY: DIAGNOSIS: ATRIAL FIBRILLATION CARDIAC HISTORY: CATHERIZATION: NO SURGERY: NO PROSTHETIC VALVE: NO PACEMAKER: NO MEASUREMENTS (cm) DIASTOLIC (NORMALS) SYSTOLIC (NORMALS) IVSd 1.0 (0.6-1.2) LA Diam 3.5 (1.9-4.0) LVEF 64% LVIDd 4.2 (3.5-5.7) LVIDs 2.8 (2.0-3.5) %FS 35% LVPWd 1.4 (0.6-1.2) Ao Diam 3.1 (2.0-3.7) 2 DIMENSIONAL ASSESSMENT: RIGHT ATRIUM: NORMAL LEFT ATRIUM: NORMAL RIGHT VENTRICLE: NORMAL LEFT VENTRICLE: NORMAL TRICUSPID VALVE: NORMAL MITRAL VALVE: NORMAL PULMONIC VALVE: NORMAL AORTIC VALVE: NORMAL PERICARDIAL EFFUSION: NONE AORTIC ROOT: NORMAL LEFT VENTRICULAR WALL MOTION: NORMAL DOPPLER/COLOR FLOW: SEE BELOW COMMENTS: NORMAL LEFT VENTRICULAR EJECTION FRACTION 55-60%. SMALL PERICARDIAL EFFUSION. TECHNOLOGIST: JAYY SANTACRUZ
--- NOTE | 2020-05-13 09:06 | PN ---
Date of Progress Note: 05/07/2020 Ms. Ivy had come in with a TIA, paroxysmal atrial fibrillation. Echocardiogram was normal with out any wall motion abnormality or effusion and no thrombus. She is in sinus rhythm today. We will continue beta blockers, but I think, she needs to be on anticoagulants, either Eliquis or Xarelto and I will leave that up to primary care physician. We will see her in the office in the next couple of weeks. She can go home as far as I am concerned. DIRK/DARYL Voice ID: [id number] Report ID: [id number]
== END 2020-05-07 16:27 | disposition home or self-care (01) | DRG 682 ==
LOC: ER 07:35 → ERHOLD 15:01 → 4TH 16:37 → OBSVTOIN 05-06 09:35
PROVIDERS: ADMIT Internal Medicine; ATTEND Internal Medicine
DX: N17.9 Acute kidney failure, unspecified (principal); I50.33 Acute on chronic diastolic (congestive) heart failure; I13.0 Hypertensive heart and chronic kidney disease with heart failure and stage 1 through stage 4 chronic kidney disease, or unspecified chronic kidney disease; G45.9 Transient cerebral ischemic attack, unspecified; I24.8 Other forms of acute ischemic heart disease; E86.0 Dehydration; N18.30 Chronic kidney disease, stage 3 unspecified; I48.0 Paroxysmal atrial fibrillation; E78.5 Hyperlipidemia, unspecified; D64.9 Anemia, unspecified; G62.9 Polyneuropathy, unspecified; R47.81 Slurred speech; R29.701 NIHSS score 1; R47.1 Dysarthria and anarthria; Z88.8 Allergy status to other drugs, medicaments and biological substances; Z79.899 Other long term (current) drug therapy; Z86.73 Personal history of transient ischemic attack (TIA), and cerebral infarction without residual deficits; Z79.82 Long term (current) use of aspirin; Z79.01 Long term (current) use of anticoagulants; Z20.822 Contact with and (suspected) exposure to COVID-19
CPT/HCPCS: 36415; 70450; 70551; 71045; 80048; 80061; 81001; 82565; 82947; 83735; 84100; 84443; 85025; 85610; 85730; 93005; 93306; 94760; 96374; 97112; 97116; 97161; 97530; 99285; G0378; J1644; J1940; J2405; J7030; U0003

== ENCOUNTER 2020-10-29 12:40 | Inpatient (IN) | payer MEDICARE, OTHER ==
--- OUTSIDE RECORDS SUMMARY | 2020-10-29 12:43 | XMS REPORT | Continuity of Care Document ---
:1930 Author Organization [facility] t Address [address] [place] [address] Care Team Providers Name Role Phone DEREK MACHUCA Attending Clinician Unavailable Problems This patient has no known problems. Allergies, Adverse Reactions, Alerts This patient has no known allergies or adverse reactions. Social History Social Habit Start Date Stop Date Quantity Comments Source Sex Assigned At [facility] Tobacco use and 2018-09-07 2018-09-[address] [facility] - exposure 00:00:00 00:00:00 [facility] Alcohol intake 2018-09-07 2018-09-07 Current drinker [facility]00 [facility] (finding) Alcohol Comment 2018-09-07 2018-09-[address] [facility] - 00:[facility]:00 00:00:00 [facility] Smoking Status Start Date Stop Date Source Never smoker [facility] Medications Ordered Filled Start Stop Current Ordering Indication Dosage Frequency Signature Comments Components Source Medication Medication Date Date Medication? Clinician (SIG) Name Name allopurinol 2019-0 Yes 100mg QD Take [address] (ZYLOPRIM) 7-16 mg by [facility] - 100 MG 23:54: mouth Medical tablet 06 daily. [place] omega-3 2019-0 Yes 1{capsu QD Take 1 [facility] fatty 7-16 le} capsule by [place] - acids-fish 23:54: mouth Medica l oil (FISH 06 daily. [place] OIL) 360-1,200 mg Cap coenzyme 2019-0 Yes 1{capsu QD Take [address] Q10 (CO 7-16 le} capsule by [facility] - Q-10) 200 23:54: mouth Medical mg capsule 06 daily. [place] furosemide Yes 20mg QD Take [address] (LASIX) 20 7-16 by mouth [facility] - MG tablet 00:00: daily. Medica l 00 [place] potassium Yes 10meq QD Take [address] chloride SA 7-16 mEq by [facility] - (K-DUR,KLOR 00:00: mouth Medic al -CON) 10 00 daily. [place] MEQ tablet gabapentin Yes 100mg QD Take [address] (NEURONTIN) 6-12 mg by [facility] - 100 MG 00:00: mouth Medical capsule 00 daily. [place] ezetimibe Yes 10mg QD Take [address] (ZETIA) 10 5-06 by mouth [facility] - mg tablet 00:00: daily. Medica l 00 [place] amLODIPine Yes 5mg QD Take [address] (NORVASC) 5 5-02 by mouth Luke s - MG tablet 00:00: daily. Medica l 00 [place] hydroCHLORO Yes 25mg QD Take [address] thiazide 5-02 by mouth [facility] - (HYDRODIURI 00:00: daily. Medi tari L) 25 MG 00 Center tablet hydrALAZINE Yes 10mg Q.5D Take [address] [facility] (APRESOLINE 3-03 by mouth 2 Luz kes - ) 10 MG 00:00: (two) Medical tablet 00 times Center daily. metoprolol Yes 100mg QD Take [address] (TOPROL-XL) 3-03 mg by [facility] - 100 MG 24 00:00: mouth Medical hr tablet 00 daily. [place] cloNIDine Yes .1mg Take 0.[address] HCl 7-06 mg by [facility] - (CATAPRES) 00:00: mouth as Med ical 0.1 MG 00 needed. [place] tablet colchicine Yes .6mg Take 0.[address] (COLCRYS) 3-06 mg by [facility] - 0.6 mg 00:00: mouth as Medical tablet 00 needed. Center Procedures This patient has no known procedures. Plan of Care Planned Activity Planned Date Details Comments Source Future Scheduled 2020-10-[address] [facility] - Test 00:00:00 (Season Ended) [code Medical Center = INFLUENZA VACCINE (Season Ended)] Future Scheduled 2020-02-[address] [facility] - Test 00:00:00 (12+) [code = Medical Center DEPRESSION SCREENING (12+)] Future Scheduled 2019-02-[address] [facility] - Test 00:00:00 WELLNESS (YEAR 2 or Medical Center FIRST YEAR if no IPPE) [code = MEDICARE ANNUAL WELLNESS (YEAR 2 or FIRST YEAR if no IPPE)] Future Scheduled 1981-09-17 SHINGLES VACCINES ([address] [facility] - Test 00:00:00 of 2) [code = Medical Center SHINGLES VACCINES (1 of 2)] Future Scheduled 1950-09-17 DTAP/TDAP/TD VACCINES [facility] Test 00:00:00 (1 - Tdap) [code = Medical C enter DTAP/TDAP/TD VACCINES (1 - Tdap)] Encounters Start End Encounter Admission Attending Care Care Encounter Source Date/Time Date/Time Type Type Clinicians Facility Department ID 2020-10-18 2020-10-18 Outpatient [facility] [id number] [facility] 2020-10-18 2020-10-18 Outpatient [facility] [id number] [facility] 2020-10-18 2020-10-18 Outpatient [facility] [id number] [facility] 2020-10-18 2020-10-18 Outpatient [facility] [id number] [facility] 2020-10-17 2020-10-17 Outpatient [facility] [id number] [facility] 2020-09-21 2020-09-21 Outpatient [facility] [id number] [facility] 2020-09-14 2020-09-14 [facility] [id number] [facility] 2020-09-10 2020-09-10 [facility] [id number] [facility] 2020-07-04 2020-07-04 [facility] [id number] [facility] 2020-07-04 2020-07-04 [facility] [id number] [facility] 2020-06-27 2020-06-27 [facility] [id number] [facility] 2020-06-07 2020-06-07 [facility] [id number] [facility] 2020-05-30 2020-05-30 [facility] [id number] [facility] 2020-04-26 2020-04-26 [facility] [id number] [facility] 2020-04-26 2020-04-26 [facility] [id number] [facility] 2020-02-20 2020-02-20 Out[facility] [id number] [facility] 2020-02-20 2020-02-20 [facility] [id number] [facility] 2020-01-31 2020-01-31 Out[facility] [id number] [facility] 2020-01-09 2020-01-09 Outpatient [facility] [id number] [facility]00 [facility] 2019-12-28 2019-12-28 Outpatient [facility] [id number] [facility]00 [facility] 2019-12-21 2019-12-21 Outpatient [facility] [id number] [facility]00 [facility] Results Test Description Test Time Test Comments Results Result [facility] e Comments VENOUS DOPPLER 2018-09-07 Reason for FINAL REPORT PATIENT LEGS, BILATERAL 23:17:00 exam:->LEG ID: [id number] SWELLING EXAMINATION: BILATERAL LOWER EXTREMITY VENOUS DUPLEX/DOPPLER [...] MDReport Verified Date/Time: 09/07/2018 23:17:28 Reading Location: [address] Reading Room /APTT 2018-09-07 22:00:00 Test [...] 0-100 H (test code = 700) TROPONIN [id number] 21:56:00 Test Item Value Reference Range Interpretation [...] acute neurological disease, and persistent tachyarrhythmia.COMPREHENSIVE METABOLIC [id number] 21:51:00 Test Item Value Reference Range Interpretation [...] ATED GFR. CBC W/PLT COUNT & AUTO [id number] 21:28:00 Test Item Value Reference Range Interpretation [...] % 0-0 PERCENT (BEAKER) (test code = 2801)
[2020-10-29 14:05] LABS: Protime INR 1.4
[2020-10-29 14:06] LABS: Absolute Lymphocytes (CBC) 0.7 K/uL (0.7-4.9); Basophils % 0.9 % (0-1.3); Hematocrit 27.2 % (36.0-45.0); Lymphocytes % 13.1 % (15.3-44.8); MPV 9.1 fL (7.6-11.3); RBC Red Blood Cell Count 3.09 M/uL (3.86-4.86)
--- NOTE | 2020-10-29 14:14 | RAD REPORT ---
EXAM DESCRIPTION: CT - Head Brain Wo Cont - 10/29/2020 2:05 pm CLINICAL HISTORY: DIZZINESS Headache, drowsiness COMPARISON: Ct Stroke Brain Wo Cont dated 05/04/2020; Head Brain Wo Cont dated 10/10/2019 TECHNIQUE: All CT scans are performed using dose optimization technique as appropriate and may inclu de automated exposure control or mA/KV adjustment according to patient size. FINDINGS: No intracranial hemorrhage, hydrocephalus or extra-axial fluid collection.Mild generalized brain atrophy is present with moderate periventricular and deep white matter chronic microvascular i schemic changes.No areas of brain edema or evidence of midline shift. The paranasal sinuses and mastoids are clear. The calvarium is intact. Left vertebral artery is ather osclerotic. IMPRESSION: No acute intracranial abnormality.
[2020-10-29 14:26] LABS: ALT/SGPT 20 U/L (12-78); AST/SGOT 14 U/L (15-37); Albumin 3.7 g/dL (3.4-5.0); Alkaline Phosphatase 85 U/L (45-117); BUN Blood Urea Nitrogen 71 mg/dL (7-18); Bicarbonate 19 mmol/L (21-32); Bilirubin Direct 0.1 mg/dL (0-0.2); Bilirubin Total 0.3 mg/dL (0.2-1.0); Glucose Level 95 mg/dL (74-106); Magnesium 3.4 mg/dL (1.8-2.4); NT PRO-BNP 12734 pg/mL (<450); Potassium 5.2 mmol/L (3.5-5.1); Protein, Total 7.9 g/dL (6.4-8.2); Sodium Level 130 mmol/L (136-145); Troponin (Emerg Dept Use Only) < 0.02 ng/mL (0.0-0.045)
--- NOTE | 2020-10-29 14:34 | RAD REPORT ---
EXAM DESCRIPTION: RAD - Chest Single View - 10/29/2020 2:25 pm CLINICAL HISTORY: SOB Chest pain. COMPARISON: Chest Single View dated 05/05/2020; Chest Single View dated 05/04/2020; Chest Single View dated 10/10/2019; Chest Single View dated 05/13/2018 FINDINGS: Portable technique limits examination quality. Moderate bilateral pulmonary opacities are present which may represent pulmonary edema or viral infec tion. The heart is moderately enlarged in size. Aortic atherosclerosis.
[2020-10-29 15:22] LABS: Urine Blood Negative (Negative); Urine Glucose Negative (Negative); Urine Protein 2+ (Negative); Urine pH 5.5 (5.0-7.0)
[2020-10-29] MEDS ORDERED: NA CHLORIDE 0.9% 500 ML ONE (15:49)
--- NOTE | 2020-10-29 16:22 | ER ---
Nurse's Notes [facility] Name: Crista Ivy Age: 89 yrs Sex: Female : 1930 Arrival Date: 10/29/2020 Time: 13:11 Bed 15 Private MD: Diagnosis: Acute kidney injury;Hypoxia;Congestive heart failure Presentation: 10/29 13:30 Chief complaint: Patient states: sob and weakness per EMS. AOX3 with mild confusion [facility] noted. denies cp states having dizziness and falls. Coronavirus screen: Vaccine status: Patient reports receiving the 2nd dose of the covid vaccine. Date April 23, 2020. Ebola Screen: No symptoms or risks identified at this time. 13:30 Method Of Arrival: EMS: [facility] 13:30 Initial Sepsis Screen: Does the patient meet any 2 criteria? No. Patient's initial [facility] sepsis screen is negative. Does the patient have a suspected source of infection? No. Patient's initial sepsis screen is negative. Risk Assessment: Do you want to hurt yourself or someone else? Patient reports no desire to harm self or others. Onset of symptoms is unknown. 13:30 Acuity: RENETTA 2 [facility] 14:00 Chief complaint:. [facility] Triage Assessment: 14:01 General: Appears in no apparent distress. Pain: Denies pain. EENT: No deficits noted. [facility] Neuro: No deficits noted. Cardiovascular: Reports lightheadedness. Respiratory: Reports shortness of breath on exertion. GI: No deficits noted. : No deficits noted. Derm: No deficits noted. Musculoskeletal: No deficits noted. 14:03 General: Behavior is calm, cooperative. [facility] - Immunization history:: Adult Immunizations Client reports receiving the 2nd dose of the Covid vaccine, Date received: April 23, 2020. - Social history:: Smoking status: Patient denies any tobacco usage or history of. Screenin:03 Abuse screen: Denies threats or abuse. Nutritional screening: No deficits noted. [facility] Tuberculosis screening: No symptoms or risk factors identified. Fall Risk Gait- Weak (10 pts.). Assessment: 15:35 Reassessment: Patient appears in no apparent distress at this time. No changes from [facility] previously documented assessment. Patient and/or family updated on plan of care and expected duration. Pain level reassessed. Patient is alert, oriented x 3, equal unlabored respirations, skin warm/dry/pink. Patient denies pain at this time. 22:17 Reassessment: Report called to receiving nurse on second floor. ea Vital Signs: 13:30 BP 134 / 72; Pulse 76; Resp 18; Temp 98.6; Pulse Ox 97% on 4 lpm NC; kh1 13:30 BP 134 / 76; Pulse 76; Resp 18; Temp 98.6; Pulse Ox 97% on NC; kh1 15:34 BP 134 / 72; Pulse 71; Resp 16; Temp 97.4; Pulse Ox 94% on 4 lpm NC; kh1 15:42 BP 134 / 72 Supine; Pulse 71; kh1 15:42 BP 123 / 73 RA Sitting (auto/); Pulse 73; kh1 15:42 BP 121 / 70 Standing; Pulse 76 RA; kh1 ED Course: 13:11 Patient arrived in ED. bd 13:18 Arcadio Miles NP is PHCP. pm1 13:18 Silver Rico MD is Attending Physician. pm1 13:55 Amisha Desai is Primary Nurse. kh1 14:00 Triage completed. kh1 14:02 Arm band placed on right wrist. kh1 14:03 No provider procedures requiring assistance completed. Inserted saline lock: 20 gauge kh1 in right antecubital area, using aseptic technique. Blood collected. 14:04 Patient has correct armband on for positive identification. Fall risk band placed. kh1 Placed in gown. Bed in low position. Call light in reach. Side rails up X2. 14:05 CT Head Brain wo Cont In Process Unspecified. EDMS 14:25 XRAY Chest (1 view) In Process Unspecified. EDMS 15:33 Urine Microscopic Only Sent. kh1 16:19 Prashanth Braswell MD is Hospitalizing Provider. pm1 16:47 US Rp Exam Complete In Process Unspecified. EDMS 18:50 Patient admitted, IV remains in place. ss 18:52 Primary Nurse role handed off by Amisha Desai ss Administered Medications: 15:33 Drug: NS 0.9% 500 ml Volume: 500 ml; Route: IV; Rate: 1 bolus; Site: right antecubital; kh Outcome: 16:21 Decision to Hospitalize by Provider. pm1 18:50 Admitted to ER Hold. Please see [facility] for further documentation. 18:50 Condition: good 18:50 Instructed on the need for admit. 18:52 Patient left the ED. ss 23:05 Patient left the ED. zulay Signatures: Dispatcher [employer] EDMS Francie Altamirano Shelby, RN RN Arcadio Bush, DIRECTOR BUSINESS DEVELOPMENT DIRECTOR BUSINESS DEVELOPMENT pm1 Honey Jaramillo RN RN ea [facility], Kecia [facility] Corrections: (The following items were deleted from the chart) 14: 14:00 PMHx: Hypertension; 1 kh 14: 14:00 PMHx: Hyperlipidemia; [place] [id number] 14:01 14:00 PMHx: TIA; [place] [id number] 15:12 14:54 CORONAVIRUS+MRDEV drawn and sent. [facility] EDWY
--- NOTE | 2020-10-29 16:22 | EDPHYS ---
Physician Documentation [facility] Name: Crista Ivy Age: 89 yrs Sex: Female : 1930 Arrival Date: 10/29/2020 Time: 13:11 Bed 15 Private MD: ED Physician Silver Rico HPI: 10/29 13:39 This 89 yrs old Female presents to ER via EMS with complaints of shortness of pm1 breath and generalized weakness. 13:39 The patient has shortness of breath with light activity. Onset: The symptoms/episode pm1 began/occurred 4 day(s) ago. Duration: The symptoms are continuous. The patient's shortness of breath is aggravated by light activity, such as getting up to go the restroom, is alleviated by Application of supplemental oxygen by EMS. Associated signs and symptoms: Pertinent positives: Dizziness, Pertinent negatives: chest pain, fever, nausea, vomiting, Cough. Severity of symptoms: in the emergency department the symptoms are worse. Patient with admission in April 2020 for similar complaints generalized weakness and acute kidney injury. The patient has not recently seen a physician. Patient reports multiple falls due to generalized weakness and shortness of breath the past 4 to 5 days. - Immunization history:: Adult Immunizations Client reports receiving the 2nd dose of the Covid vaccine, Date received: April 23, 2020. - Social history:: Smoking status: Patient denies any tobacco usage or history of. ROS: 13:39 Cardiovascular: Negative for chest pain, palpitations, and edema. pm1 13:39 Abdomen/GI: Negative for abdominal pain, nausea, vomiting, diarrhea, and constipation, Back: Negative for injury and pain, : Negative for injury, bleeding, discharge, and swelling, MS/Extremity: Negative for injury and deformity, Skin: Negative for injury, rash, and discoloration. 13:39 Constitutional: Positive for Poor p.o. intake of fluids the past few days, Negative for body aches, fever. 13:39 Respiratory: Positive for dyspnea on exertion, shortness of breath, Negative for cough. 13:39 Neuro: Positive for dizziness, Generalized weakness, Negative for headache, numbness, tingling, Focal weakness. 13:39 All other systems are negative. Exam: 13:39 Constitutional: This is a well developed, well nourished patient who is awake, alert, pm1 and in no acute distress. Head/Face: Normocephalic, atraumatic. Neck: Trachea midline, no thyromegaly or masses palpated, and no cervical lymphadenopathy. Supple, full range of motion without nuchal rigidity, or vertebral point tenderness. No Meningismus. 13:39 Skin: Warm, dry with normal turgor. Normal color with no rashes, no lesions, and no evidence of cellulitis. MS/ Extremity: Pulses equal, no cyanosis. Neurovascular intact. Full, normal range of motion. 13:39 Eyes: Exam is negative for acute changes, Extraocular movements: no acute changes, Conjunctiva: no acute changes, no injection. 13:39 ENT: Mouth: Lips: dry, Oral mucosa: pink and intact, dry. 13:39 Cardiovascular: Rate: normal, Rhythm: regular, Pulses: no pulse deficits are appreciated, Heart sounds: normal, normal S1and S2, Edema: is not appreciated. 13:39 Respiratory: the patient does not display signs of respiratory distress, Respirations: normal, Breath sounds: decreased breath sounds, are located in both bases. 13:39 Abdomen/GI: Inspection: abdomen appears normal, Palpation: abdomen is soft and non-tender, in all quadrants. 13:39 Neuro: Exam negative for acute changes, Orientation: is normal, Mentation: is normal, Motor: is normal, moves all fours. Vital Signs: 13:30 BP 134 / 72; Pulse 76; Resp 18; Temp 98.6; Pulse Ox 97% on 4 lpm NC; kh1 13:30 BP 134 / 76; Pulse 76; Resp 18; Temp 98.6; Pulse Ox 97% on NC; kh1 15:34 BP 134 / 72; Pulse 71; Resp 16; Temp 97.4; Pulse Ox 94% on 4 lpm NC; kh1 15:42 BP 134 / 72 Supine; Pulse 71; kh1 15:42 BP 123 / 73 RA Sitting (auto/); Pulse 73; kh1 15:42 BP 121 / 70 Standing; Pulse 76 RA; kh1 MDM: 13:27 Patient medically screened. pm1 15:31 Counseling: I had a detailed discussion with the patient and/or guardian regarding: the pm1 historical points, exam findings, and any diagnostic results supporting the discharge/admit diagnosis, lab results, radiology results, the need for further work-up and treatment in the hospital. 15:49 Data reviewed: vital signs. pm10/29 13:29 Order name: Basic Metabolic Panel; Complete Time: 15:26 pm10/29 13:29 Order name: CBC with Diff; Complete Time: 14:42 pm1 10/29 13:29 Order name: LFT's; Complete Time: 15:26 pm10/29 13:29 Order name: Magnesium; Complete Time: 15:26 pm10/29 13:29 Order name: NT PRO-BNP; Complete Time: 15:26 pm10/29 13:29 Order name: PT-INR; Complete Time: 14:42 pm10/29 13:29 Order name: Troponin (emerg Dept Use Only); Complete Time: 15:26 pm1 10/29 13:32 Order name: Urine Microscopic Only; Complete Time: 17:07 pm1 10/29 15:23 Order name: Urine Dipstick-Ancillary; Complete Time: 15:26 EDNJ 10/29 16:20 Order name: SARS-COV-2 RT PCR; Complete Time: 16:25 EDMS 10/29 17:41 Order name: NT PRO-BNP EDMS 10/29 17:41 Order name: T4 Free EDNJ 10/29 17:41 Order name: Thyroid Stimulating Hormone EDNJ 10/29 13:29 Order name: XRAY Chest (1 view); Complete Time: 14:42 pm1 10/29 13:29 Order name: EKG; Complete Time: 13:30 pm10/29 13:29 Order name: Cardiac monitoring; Complete Time: 15:33 pm10/29 13:29 Order name: EKG - Nurse/Tech pm1 10/29 13:29 Order name: CT Head Brain wo Cont; Complete Time: 14:42 pm1 10/29 15:49 Order name: US Rp Exam Complete; Complete Time: 16:58 pm1 10/29 17:41 Order name: Heart Healthy EDMS 10/29 17:41 Order name: Basic Metabolic Panel EDMS 10/29 17:41 Order name: Basic Metabolic Panel EDMS 10/29 17:41 Order name: CBC with Automated Diff EDMS 10/29 17:41 Order name: CBC with Automated Diff EDMS 10/29 17:41 Order name: Protime (+INR) EDMS 10/29 17:41 Order name: Protime (+INR) EDNJ 10/29 17:43 Order name: Urinalysis EDNJ 10/29 17:44 Order name: Echo with Doppler EDNJ 10/29 13:29 Order name: IV Saline Lock; Complete Time: 14:54 pm1 10/29 13:29 Order name: Labs collected and sent; Complete Time: 14:54 pm1 10/29 13:29 Order name: O2 Per Protocol; Complete Time: 14:54 pm1 10/29 13:29 Order name: O2 Sat Monitoring; Complete Time: 14:54 pm1 10/29 13:32 Order name: Urine Dipstick-Ancillary (obtain specimen); Complete Time: 15:33 pm1 10/29 13:32 Order name: Straight Cath - Urine; Complete Time: 15:33 pm1 10/29 14:46 Order name: Orthostatics; Complete Time: 15:33 pm1 Administered Medications: 15:33 Drug: NS 0.9% 500 ml Volume: 500 ml; Route: IV; Rate: 1 bolus; Site: right antecubital; [facility] Disposition: 10/30 08:49 Co-signature as Attending Physician, Silver Rico MD I agree with the assessment and larisa plan of care. Disposition Summary: 10/29/20 16:21 Hospitalization Ordered Hospitalization Status: Inpatient Admission pm1 Provider: Prashanth Braswell pm1 Condition: Stable pm1 Problem: new pm1 Symptoms: have improved pm1 Bed/Room Type: Standard pm1 Location: Telemetry/MedSurg (Inpatient)(10/29/20 21:07) Room Assignment: [facility](10/29/20 21:07) Diagnosis - Acute kidney injury pm1 - Hypoxia pm1 - Congestive heart failure pm1 Forms: - Medication Reconciliation Form pm1 - SBAR form pm1 Signatures: Dispatcher [employer] Silver Shaffer MD MD cha Smirch, Shelby, RN RN ss Garcia, Cindy, RN RN cg Marinas, Patrick, NP DIE STAMPING PRESS OPERATOR pm1 Amisha Desai [facility] Corrections: (The following items were deleted from the chart) 10/29 14: 14:00 PMHx: Hypertension; 14: 14:00 PMHx: Hyperlipidemia; 1 14:01 14:00 PMHx: TIA; kh1 kh1 15:12 13:30 CORONAVIRUS+MR.LAB.BRZ ordered. EDMS EDMS 18:48 16:21 Telemetry/MedSurg (Inpatient) pm1 ss 18:48 16:21 pm1 ss 21:07 18:48 [facility] ER HOLD ss cg 21:07 18:48 ERHOLD- ss cg
--- NOTE | 2020-10-29 16:57 | RAD REPORT ---
EXAM DESCRIPTION: US - Renal Ultrasound-Complete - 10/29/2020 4:47 pm CLINICAL HISTORY: Acute kidney injury Flank pain COMPARISON: Renal Ultrasound-Complete dated 10/12/2019 FINDINGS: Both kidneys are significantly echogenic. The right kidney measures 9.5 x 5.2 x 5.0 cm. No hydronephrosis. Multiple cysts are present cortex of the right kidney, largest measuring 3 cm. The left kidney measures 9.9 x 4.6 x 4.4 cm.. No hydronephrosis. The urinary bladder is incompletely distended without gross abnormality seen. IMPRESSION: Significantly echogenic kidneys is present compatible with medical renal disease. Multiple right renal cysts, benign appearance, largest measuring 3 cm. No hydronephrosis.
[2020-10-29 17:01] LABS: Urine Bacteria <20 /HPF (<20); Urine RBC <5 /HPF (NONE SEEN)
[2020-10-29 17:02] LABS: Urine Amorphous Sediment 1+ /HPF (NONE SEEN); Urine Mucus 1+ /HPF (NONE SEEN)
[2020-10-29] MEDS ORDERED: ACETAMINOPHEN 500 MG TAB PO PRN (17:39)
[2020-10-29] MEDS ORDERED: ONDANSETRON 4 MG/2 ML VIAL IV PRN (17:39)
[2020-10-29] MEDS ORDERED: LABETALOL 20 MG/4ML SYRINGE IV PRN (17:39)
--- NOTE | 2020-10-29 17:46 | P.HP ---
Certification for Inpatient Patient admitted to: Inpatient With expected LOS: >2 Midnights Patient will require the following post-hospital care: None Practitioner: I am a practitioner with admitting privileges, knowledge of patient current condition, hospital course, and medical plan of care. Services: Services provided to patient in accordance with Admission requirements found in Title 42 Section 412.3 of the Code of Federal Regulations Patient History Date of Service: 10/30/20 Reason for admission: SOB, weakness History of Present Illness: Patient is an 89-year-old female with a past medical history significant for HTN, HLD, CKD, Gout, Afib, who presents with complaint of shortness of breath, dizziness and generalized weakness. Patient reported that she has been having generalized weakness intermittently for the past 3 months. Patient also reports frequent falls, bilateral lower extremity edema and periodic tremors. Patient denies any other signs or symptoms. Symptoms are aggravated by exertion and relieved by nothing. Patient decided to present to the hospital due to worsening symptoms. Allergies atorvastatin [From Lipitor] Adverse Reaction (Verified 05/04/20 22:47) weakness Home Medications: Allopurinol 1 tab PO DAILY 10/10/19 Ezetimibe [Zetia*] 1 tab PO DAILY 10/10/19 Gabapentin [Neurontin*] 100 mg PO BID 10/10/19 Hydralazine [Apresoline*] 60 mg PO DAILY 10/10/19 Meclizine HCl [Antivert*] 12.5 mg PO TID #20 tab 10/13/19 Carvedilol [Coreg] 25 mg PO DAILY 05/04/20 Furosemide [Lasix*] 60 mg PO DAILY 05/04/20 calcitrioL [Rocaltrol] 0.25 mcg PO DIRECTED 05/04/20 Apixaban [Eliquis *] 2.5 mg PO BID #60 tablet 05/07/20 Aspirin [Aspirin EC 81 MG] 81 mg PO DAILY #30 tablet. 05/07/20 - Past Medical/Surgical History Diabetic: No -: Hypertension -: Hyperlipidemia -: CKD stage 2 - Family History Father -: Hypertension - Social History Smoking Status: Never smoker Alcohol use: No CD- Drugs: No Caffeine use: Yes Place of Residence: Home Review of Systems General: Weakness, Malaise Eyes: Unremarkable ENT: Unremarkable Respiratory: Shortness of Breath, SOB with Excertion Cardiovascular: Edema Gastrointestinal: Unremarkable Genitourinary: Unremarkable Musculoskeletal: Unremarkable Integumentary: Unremarkable Neurological: Unremarkable Physical Examination - Physical Exam General: Alert, In no apparent distress, Oriented x3 HEENT: Atraumatic, PERRLA, Mucous membr. moist/pink, EOMI, Sclerae nonicteric Neck: Supple, 2+ carotid pulse no bruit, No LAD, Without JVD or thyroid abnormality Respiratory: Clear to auscultation bilaterally, Normal air movement Cardiovascular: Regular rate/rhythm, Normal S1 S2, Edema Gastrointestinal: Normal bowel sounds, Soft and benign, No tenderness Musculoskeletal: No clubbing, No tenderness Integumentary: No rashes, No breakdown Neurological: Normal speech, Normal tone, Normal affect Lymphatics: No axilla or inguinal lymphadenopathy External genitalia: Deferred Rectal: Deferred - Studies Laboratory Data (last 24 hrs) 10/29/20 13:40: PT 16.2 H, INR 1.40 10/29/20 13:40: WBC 5.50, Hgb 8.9 L, Hct 27.2 L, Plt Count 198 10/29/20 13:40: Sodium 130 L, Potassium 5.2 H, BUN 71 H, Creatinine 5.91 H*, Glucose 95, Magnesium 3.4 H D, Total Bilirubin 0.3, AST 14 L, ALT 20, Alkaline Phosphatase 85 Assessment and Plan - Plan --Acute on chronic diastolic CHF exacerbation. Cardiology consulted. Echocardiogram to assess LV\valvular function and wall motions. Continue diuresis with Lasix. Daily weight and strict I/O. 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 Nephrology consulted. We will further recommendations. --A. fib. Continue Eliquis. --Gout. Continue allopurinol. --Hypertension. Stable. Continue home medications. --HLD. Continue home medications . --Obesity. Likely secondary to excess calories intake. Patient counseled on diet and exercise therapy. --DVT prophylaxis with heparin subQ I have had discussion about advanced directives with the patient during this hospital admission. Addressed code status and /or goals of care. Spent more than 15 minutes. Case discussed withpatient and nurse. The following document was completed using voice recognition software. This can produce potato loader errors that can at times significantly distort words and phrases. Please interpret any aspect of the note that is nonsensical in light of this fact. Discharge Plan: Home Plan to discharge in: 48 Hours - Advance Directives Does patient have a Living Will: No Does patient have a Durable POA for Healthcare: No - Code Status/Comfort Care Code Status Assessed: Yes Code Status: Full Code Physician Review: Patient Assessed, Agree with Above Assessment and Plan Critical Care: No
[2020-10-29 18:32] LABS: Thyroid Stimulating Hormone 0.361 uIU/mL (0.360-3.740)
[2020-10-29] MEDS: ALBUTEROL 2.5 MG/3 ML NEB SOL NEB SCH (19:25)
[2020-10-29] MEDS: IPRATROPIUM BROM 0.5MG/2.5ML NEB SCH (19:25)
[2020-10-29] MEDS ORDERED: ALBUTEROL 2.5 MG/3 ML NEB SOL ONE (19:38)
[2020-10-29] MEDS ORDERED: IPRATROPIUM BROM 0.5MG/2.5ML ONE (19:38)
[2020-10-29] MEDS ORDERED: HEPARIN 5000 UNIT/ML 1 ML VIAL ONE (20:10)
[2020-10-29] MEDS: HEPARIN 5000 UNIT/ML 1 ML VIAL SQ SCH (20:52)
[2020-10-29 21:27] VITALS: BMI 28.3
[2020-10-30] MEDS: FUROSEMIDE 40 MG/4 ML VIAL IV SCH ×3 (00:49→17:09)
[2020-10-30] MEDS: SODIUM BICARB 325 MG TAB PO SCH ×3 (00:49→20:51)
[2020-10-30] MEDS: ALBUTEROL 2.5 MG/3 ML NEB SOL NEB SCH ×4 (01:55→20:35)
[2020-10-30] MEDS: IPRATROPIUM BROM 0.5MG/2.5ML NEB SCH ×4 (01:55→20:35)
[2020-10-30] MEDS ORDERED: IPRATROPIUM BROM 0.5MG/2.5ML ONE ×2 (02:13→10:18)
[2020-10-30] MEDS ORDERED: ALBUTEROL 2.5 MG/3 ML NEB SOL ONE ×2 (02:13→10:18)
[2020-10-30 05:41] LABS: Absolute Lymphocytes (CBC) 0.9 K/uL (0.7-4.9); Basophils % 0.8 % (0-1.3); Hematocrit 24.7 % (36.0-45.0); Lymphocytes % 18.3 % (15.3-44.8); MPV 9.1 fL (7.6-11.3); RBC Red Blood Cell Count 2.76 M/uL (3.86-4.86)
[2020-10-30 06:00] LABS: Protime INR 1.24
[2020-10-30 06:11] LABS: Potassium 4.5 mmol/L (3.5-5.1)
[2020-10-30] MEDS ORDERED: FUROSEMIDE 40 MG/4 ML VIAL IV SCH (09:00)
[2020-10-30] MEDS: ASPIRIN 81 MG CHEWABLE TABLET PO SCH (09:58)
[2020-10-30] MEDS: HEPARIN 5000 UNIT/ML 1 ML VIAL SQ SCH ×2 (09:59→19:40)
--- NOTE | 2020-10-30 10:57 | EKG ---
Test Date: 2020-10-29 Test Time: 16:49:29 Sr. Media Manager: BO MEASUREMENT RESULTS: Intervals: Rate: 74 VT: 208 QRSD: 86 QT: 406 QTc: 450 [place]: P: 57 VT: 208 QRS: 83 T: 68 INTERPRETIVE STATEMENTS: Sinus rhythm with premature atrial complexes Nonspecific T wave abnormality Abnormal ECG Compared to ECG 05/06/2020 00:48:10 Atrial premature complex(es) now present T-wave abnormality now present Atrial fibrillation no longer present Ventricular premature complex(es) no longer present Myocardial infarct finding no longer present Electronically Signed On 10-30-20 10:54:07 CDT by Sincere Grajeda
--- NOTE | 2020-10-30 11:24 | ECHO ---
HEIGHT: 5 ft 5 in WEIGHT: 170 lb 6.4 oz DATE OF STUDY: 10/30/[address]: Mehrdad Sun 2-DIMENSIONAL: YES M.MODE: YES DOPPLER: YES COLOR FLOW: YES TDS: PORTABLE: DEFINITY: BUBBLE STUDY: DIAGNOSIS: CONGESTIVE HEART FAILURE CARDIAC HISTORY: CATHERIZATION: SURGERY: PROSTHETIC VALVE: PACEMAKER: MEASUREMENTS (cm) DIASTOLIC (NORMALS) SYSTOLIC (NORMALS) IVSd 1.0 (0.6-1.2) LA Diam (1.9-4.0) LVEF 69% LVIDd 5.3 (3.5-5.7) LVIDs 3.2 (2.0-3.5) %FS 39% LVPWd 1.1 (0.6-1.2) Ao Diam 3.3 (2.0-3.7) 2 DIMENSIONAL ASSESSMENT: RIGHT ATRIUM: NORMAL LEFT ATRIUM: NORMAL RIGHT VENTRICLE: NORMAL LEFT VENTRICLE: NORMAL TRICUSPID VALVE: NORMAL MITRAL VALVE: NORMAL PULMONIC VALVE: NORMAL AORTIC VALVE: NORMAL PERICARDIAL EFFUSION: NONE AORTIC ROOT: NORMAL LEFT VENTRICULAR WALL MOTION: NORMAL DOPPLER/COLOR FLOW: NORMAL COMMENTS: NORMAL 2-DIMENSIONAL ECHOCARDIOGRAM WITH DOPPLER. NO WALL MOTION ABNORMALITY. NO EFFUSION. TECHNOLOGIST: JAYY SANTACRUZ
--- NOTE | 2020-10-30 14:16 | CON ---
Date of Consultation: 10/29/2020 Admitted on 10/29/2020, to Dr. Ho. Reason For Consultation: Congestive heart failure. History Of Present Illness: Ms. Ivy is 89, has history of paroxysmal atrial fibrillation, gout , hypertension, dyslipidemia, chronic diastolic congestive heart failure, came in with shortness of b reath, was found to have a creatinine of 5.61, which is new. Hemoglobin of 8.8. [place] [address]. Echocardiogram is pending. Nephrology consultation is pending. She denied chest pain. Denied naus ea, vomiting, diaphoresis. She denied any PND, orthopnea, or pedal edema. She denied any syncope or fever or chills. Her main complaint was weakness and shortness of breath. Past Medical History: As stated above. Allergies: SHE IS ALLERGIC TO LIPITOR. Review of Systems: Negative. Social History: Negative. Family History: Negative. Medications: Include Coreg, Eliquis, Lasix, Zetia, allopurinol, aspirin, and hydralazine. Physical Examination: General: She appeared her stated age. Vital Signs: Stable. Sinus rhythm. HEENT: Negative. Neck: Supple. No bruit. Chest: Reveals some rales both bases. Cardiac: Reveals a regular rhythm and rate with an S4 gallop and an aortic sclerosis murmur. Abdomen: Obese, but was benign. Extremities: Revealed 1+ edema. Neurologic: She was nonfocal. Skin: Dry and intact. Vascular: Pulses were present distally bilaterally. Diagnostic Data: As stated earlier. EKG showed nonspecific changes. Chest x-ray showed possible vo lume overload. Impression And Plan: 1.Shortness of breath, probably secondary to acute on chronic diastolic congestive heart failure. E chocardiogram is pending. 2.Renal failure, acute. Nephrology consultation is pending. We need to be careful with diuresing her. We need to continue her Coreg, Eliquis, allopurinol, Zetia , aspirin, hydralazine, diurese gently. We will see what the echocardiogram shows. Her other proble ms including dyslipidemia and hypertension and paroxysmal atrial fibrillation seem to be stable. She is on Eliquis and we need to continue that. I think her main problem is going to basket turner to be acu te renal failure and we will have to make a decision whether the patient is a candidate for dialysis or not. This case needs to be discussed with the family and Nephrology in detail. DIRK/DARYL Voice ID: [id number] Report ID: [id number]
--- NOTE | 2020-10-30 15:08 | P.PN ---
Subjective Date of Service: 10/30/20 Chief Complaint: SOB, weakness Patient reports generalized weakness. She states her shortness of breath is better today. Serum creatinine level improved only slightly. Patient states she ambulates with a walker at baseline. Physical Examination - Vital Signs Temperature: 97.4 F Blood Pressure: 132/61 Pulse: 64 Respirations: 20 Pulse Ox (%): 92 - Physical Exam General: In no apparent distress, Other (Frail appearing) HEENT: Other (Oxygen by nasal cannula) Neck: Supple, JVD not distended Respiratory: Clear to auscultation bilaterally, Normal air movement Cardiovascular: Normal S1 S2, Edema (Trace bilateral lower extremity edema), Irregular heart rate/rhythm Gastrointestinal: Normal bowel sounds, Soft and benign, Non-distended Musculoskeletal: No swelling Integumentary: No rashes Neurological: Other (No focal motor deficit) Assessment And Plan - Current Problems (Diagnosis) (1) Acute on chronic diastolic heart failure Current Visit: No Status: Acute (2) Acute worsening of stage 3 chronic kidney disease Current Visit: No Status: Acute (3) Generalized weakness Current Visit: No Status: Acute (4) HTN (hypertension) Current Visit: No Status: Chronic - Plan Patient seen by nephrology and placed on IV Lasix 40 mg q.8 hr for diuresis. Echocardiogram unremarkable. Cardiology input appreciated. Careful diuresis. Patient seen by nephrology who was assisting with diuresis. Monitor renal function while on IV Lasix. Hopefully we may be able to avoid hemodialysis which may be too aggressive for this 89-year-old frail woman. PT to evaluate. Resume other cardiac medications and anticoagulation. Physician Review: Patient Assessed, Agree with Above Assessment and Plan
--- NOTE | 2020-10-30 15:10 | PN ---
Date of Progress Note: 10/30/2020 Subjective: Ms. Ivy is 89. Came in with what appeared to be acute on chronic diastolic conges tive heart failure. Renal failure with a creatinine of 5.61 with elevated BNP and anemia. She has p aroxysmal atrial fibrillation, on Eliquis. She is in sinus rhythm. Her blood pressure is well contr olled. Her dyslipidemia is well controlled. She has gotten some IV Lasix since she has been here. She is feeling better. Her creatinine is stable. Echocardiogram, however, showed normal wall motion . Normal ejection fraction. Nephrology is involved in her care. I think her problem is more renal than cardiac. We will see what Nephrology's plans are. No further cardiac workup recommended at thi s point. Continue present regimen. DIRK/DARYL Voice ID: [id number] Report ID: [id number]
--- NOTE | 2020-10-30 15:37 | CON ---
Date of Consultation: 10/30/2020 Reason For Consultation: Elevated BUN and creatinine, fluid management. History Of Present Illness: All the information has been obtained from the record as the patient pleasantly confused. This is an 89-year-old female with significant past medical history of hypertension, hyperlipidemia, gout, chronic kidney disease stage 4 secondary to hypertension nephrosclerosis, proteinuric, nonnephrotic, baseline creatinine 1.6 and GFR of 27 back in May 2020. The patient recently admitted to the hospital back in April. At that time, her creatinine upon discharge was 2.2 with GFR of 20. The patient came to the hospital complaining from shortness of breath and chest tightness with dizziness and weakness. The patient had recurrent fall and tremor. Upon arrival to the hospital, the patient found to have elevation in BUN and creatinine, creatinine 5.7 with GFR of 7. The patient denied taking any nonsteroidal. No recent change in her medications. Her BNP was elevated to 1200. Past Medical History: Includes; 1. Hypertension. 2. Hyperlipidemia. 3. Gout. 4. Chronic kidney disease, baseline creatinine of 2, GFR of 20 as of April 2020. 5. Secondary hyperparathyroidism. Home Medications: Include; 1. Calcitriol. 2. Gabapentin. 3. Lasix. 4. Zetia. 5. Calcium carbonate with vitamin D. 6. Eliquis. 7. Amlodipine. 8. Allopurinol. Current Medications: In the hospital include Lasix, Tylenol, labetalol, Zofran, sodium bicarb. Past Surgical History: Negative. Family History: Positive for hypertension. Social History: Lives with daughter. Denied smoking. Denied drinking. Denied drugs abuse. Review of Systems: Head and Neck: No red eye. No ear pain. GI: No nausea. No vomiting. : No polyuria. No dysuria. No hematuria. Glue Maker: No vaginal discharge. Respiratory: Has shortness of breath. Cardiovascular: Has chest tightness. Endocrine: No polydipsia. Skin: No rash. Neuro: Has fall. Has dizziness. Musculoskeletal: Generalized weakness. Physical Examination: Vital Signs: Blood pressure 142/64, pulse of 71. The patient had good urine output of 850. Laboratory Data: Renal ultrasound was done, showing 9.5/9.9, multiple renal cysts, largest of 3 cm. Echocardiogram has been done showing ejection fraction of 69%, no wall abnormality. Sodium 134, potassium 4.5, bicarb 21, BUN 70, creatinine 5.7, GFR of 7, calcium 8.7. Chest x-ray; cardiomegaly with congestion. WBC 4.7, H and H 8/24.7, platelets of 118. Urinalysis was negative for infection, +2 protein. Assessment And Plan: 1. Acute kidney injury on advanced chronic kidney disease, nonoliguric, over volume, kidney function declined further. If kidney function declined further, at that time I am going to switch the patient to Lasix drip. Currently, kidney function started being improving. I am going to continue with the diuresis. We will monitor the patient closely. Given the age of the patient, I do not see the need to alcantar for initiating dialysis for the time being. We will monitor the patient closely. If the patient fails, the patient may need to be initiated on renal replacement therapy. We will follow up. 2. Hypertension, controlled, optimal. We will utilize blood pressure for more diuresis. 3. Anemia of chronic kidney disease. I am going to send for the anemia workup and we will send for light chain disease to be ruled out. 4. Hyponatremia secondary to dilutional. We will diurese the patient and we will monitor. 5. Hypertension. We will utilize blood pressure for more diuresis. 6. Hyperkalemia secondary to renal failure. We will diurese the patient. 7. Congestive heart failure, diastolic dysfunction as by Cardiology. Time spent examining the patient [id number] placing order discussing with the patient reviewing data discussing the case with all of our subspecialty including hospitalist 65 minutes MAR Voice ID: [id number] Report ID: [id number] MILO
[2020-10-30 16:04] LABS: UR PROTEIN 58.1 mg/dL (<11.9); Urine Protein/Creatinine Ratio 0.48 ratio (<0.15)
[2020-10-30] MEDS: carvediloL 25 MG TAB PO SCH (20:51)
[2020-10-30] MEDS: GABAPENTIN 300 MG CAP PO SCH (20:51)
[2020-10-30] MEDS: APIXABAN 2.5 MG TABLET PO SCH (20:51)
[2020-10-31] MEDS: FUROSEMIDE 40 MG/4 ML VIAL IV SCH ×2 (00:59→10:15)
[2020-10-31] MEDS: ALBUTEROL 2.5 MG/3 ML NEB SOL NEB SCH ×4 (02:20→20:55)
[2020-10-31] MEDS: IPRATROPIUM BROM 0.5MG/2.5ML NEB SCH ×4 (02:20→20:55)
[2020-10-31 05:22] LABS: Absolute Lymphocytes (CBC) 0.8 K/uL (0.7-4.9); Basophils % 0.6 % (0-1.3); Hematocrit 26.3 % (36.0-45.0); Lymphocytes % 15.3 % (15.3-44.8); MPV 8.7 fL (7.6-11.3); RBC Red Blood Cell Count 2.95 M/uL (3.86-4.86)
[2020-10-31 06:05] LABS: Albumin 3.2 g/dL (3.4-5.0); Ferritin 89.2 ng/mL (8-388); Folic Acid, (Folate) 8.2 ng/mL (3.1-17.5); Phosphorus 4.5 mg/dL (2.5-4.9); Potassium 4.4 mmol/L (3.5-5.1); Thyroid Stimulating Hormone 0.443 uIU/mL (0.360-3.740); Uric Acid 7.4 mg/dL (2.6-6.0)
[2020-10-31] MEDS ORDERED: CALCITROL 0.25 MCG CAP PO SCH ×2 (09:00→10:00)
[2020-10-31] MEDS: ASPIRIN 81 MG CHEWABLE TABLET PO SCH (10:14)
[2020-10-31] MEDS: SODIUM BICARB 325 MG TAB PO SCH ×2 (10:14→21:00)
[2020-10-31] MEDS: APIXABAN 2.5 MG TABLET PO SCH ×2 (10:14→21:00)
[2020-10-31] MEDS: allopurinoL 100 MG TAB PO SCH (10:14)
[2020-10-31] MEDS: EZETIMIBE 10 MG TAB PO SCH (10:14)
[2020-10-31] MEDS: CALCIUM CARB 500MG/VIT D 200 IU TAB PO SCH (10:14)
[2020-10-31] MEDS: GABAPENTIN 300 MG CAP PO SCH (10:15)
[2020-10-31] MEDS: carvediloL 25 MG TAB PO SCH (10:15)
[2020-10-31] MEDS ORDERED: SOD FERRIC GLUC COMPLX/SUCROSE 250 MG in NA CHLORIDE 0.9% 250 ML IV SCH (11:30)
[2020-10-31] MEDS ORDERED: CALCITROL 0.25 MCG CAP PO ONE (12:00)
[2020-10-31] MEDS ORDERED: FUROSEMIDE 100 MG in NA CHLORIDE 0.9% 90 ML IV SCH (13:00)
[2020-10-31] MEDS: CALCITROL 0.25 MCG CAP PO SCH (13:00)
--- NOTE | 2020-10-31 14:11 | P.PN ---
Subjective Date of Service: 10/31/20 Chief Complaint: SOB, weakness Patient's clinical condition is worse today. She is now obtunded. Physical Examination - Vital Signs Temperature: 99.3 F Blood Pressure: 132/55 Pulse: 65 Respirations: 16 Pulse Ox (%): 100 - Physical Exam General: Other (Obtunded) Neck: JVD not distended Respiratory: Normal air movement, Crackles/rales (Mild bibasilar rales) Cardiovascular: Regular rate/rhythm, Normal S1 S2, Edema (Bilateral lower extremity edema improved) Gastrointestinal: Normal bowel sounds, Soft and benign, Non-distended Musculoskeletal: No tenderness Neurological: Other (Obtunded) Assessment And Plan - Current Problems (Diagnosis) (1) Acute on chronic diastolic heart failure Current Visit: No Status: Acute (2) Acute worsening of stage 3 chronic kidney disease Current Visit: No Status: Acute (3) Generalized weakness Current Visit: No Status: Acute (4) HTN (hypertension) Current Visit: No Status: Chronic - Plan Patient seen by nephrology and placed on IV Lasix 40 mg q.8 hr for diuresis. Echocardiogram unremarkable. Cardiology input appreciated. Patient is clinically worse today with altered mental status. Altered mental status likely secondary to uremia. Patient and family have declined hemodialysis. Monitor renal function while on IV Lasix. Recommending hospice. Physician Review: Patient Assessed, Agree with Above Assessment and Plan
--- NOTE | 2020-10-31 14:23 | PN ---
Date of Progress Note: 10/31/2020 Subjective: The patient was admitted with acute kidney injury, over volume, cardiorenal syndrome. T he patient had hyperkalemia and hyponatremia. We started the patient on aggressive diuresis. Kidney function is slightly improving. The patient had good urine output. The patient is still slightly o btunded. Physical Examination: Vital Signs: When I saw the patient; blood pressure 119/60, pulse of 75, afebrile. The patient had good urine output of 1800, negative of 1100. Chest: Decreased entry bilateral base with crackles. Heart: S1, S2. Systolic murmur. Abdomen: Soft, nontender. Extremity: Plus edema. Neuro: The patient is sleepy. Moving 4 extremities without any focality. Laboratory Data: The patient has chest x-ray with cardiomegaly and congestion. Sodium 133, potassiu m 4.4, bicarb 22, BUN 77, creatinine 5.3, calcium 7.4, phosphorus 4.5, iron saturation 8.7, ferritin 89, albumin 3.2. PTH 280. H and H 8.4/26.3. Current Medications: The patient on include; 1.Aspirin. 2.Albuterol. 3.IV iron. 4.Eliquis. 5.Calcium carbonate. 6.Carvedilol 25 b.i.d. 7.Gabapentin 300 t.i.d. 8.Sodium bicarb. 9.Lasix 40 every 8 hours. 10.Allopurinol. Assessment And Plan: 1.Acute kidney injury secondary to cardiorenal, still on the over volume side. I am going to go ahe ad and start the patient on Lasix drip and we will monitor the patient closely. I had long discussio n with the patient's daughter, Norma over the phone at phone #[phone] about the option of treatm ent and possibly the patient may need renal replacement therapy. Family still not decided, want to s peak to her sister before. We will follow up with the family on a daily basis. I am going to go ahe ad and discontinue Neurontin and we will monitor the patient. 2.Hypertension, currently blood pressure on the lower side. We will utilize blood pressure for more diuresis. I am going to go ahead and decrease carvedilol to 12.5, discontinue Lasix and start on La six drip, and we will follow up the patient closely. 3.Acidosis secondary to renal failure. Continue oral bicarb. 4.Hyperkalemia, resolved. 5.Iron deficiency anemia. Start the patient on IV iron. 6.Secondary hyperparathyroidism. I am going to increase her calcitriol to 0.5 every other day and w e will monitor the patient. 7.Altered mental status, possible secondary to Neurontin. Discontinue Neurontin. We will continue to monitor the patient. MAR Voice ID: [id number] Report ID: [id number]
[2020-10-31 18:16] LABS: Urine Appearance CLOUDY (Clear); Urine Bilirubin NEGATIVE (Negative); Urine Blood TRACE (Negative); Urine Color YELLOW (Yellow); Urine Glucose NEGATIVE (Negative); Urine Protein NEGATIVE (Negative); Urine Specific Gravity <=1.005 (1.005-1.030); Urine Urobilinogen 0.2 mg/dL (0.2-1.0)
[2020-10-31 19:13] LABS: Urine Bacteria 20-50 /HPF (<20); Urine RBC <5 /HPF (NONE SEEN)
[2020-10-31] MEDS: carvediloL 12.5 MG TAB PO SCH (21:00)
[2020-11-01] MEDS: ALBUTEROL 2.5 MG/3 ML NEB SOL NEB SCH ×4 (02:05→20:05)
[2020-11-01] MEDS: IPRATROPIUM BROM 0.5MG/2.5ML NEB SCH ×4 (02:05→20:05)
[2020-11-01 05:45] LABS: Absolute Lymphocytes (CBC) 0.8 K/uL (0.7-4.9); Basophils % 0.7 % (0-1.3); Hematocrit 26.4 % (36.0-45.0); Lymphocytes % 15.9 % (15.3-44.8); MPV 8.7 fL (7.6-11.3); RBC Red Blood Cell Count 2.97 M/uL (3.86-4.86)
[2020-11-01 07:01] LABS: Albumin 3.1 g/dL (3.4-5.0); Phosphorus 4.9 mg/dL (2.5-4.9); Potassium 4.2 mmol/L (3.5-5.1)
[2020-11-01] MEDS: SODIUM BICARB 325 MG TAB PO SCH (09:00)
[2020-11-01] MEDS ORDERED: CALCITROL 0.25 MCG CAP PO SCH (09:00)
[2020-11-01] MEDS: APIXABAN 2.5 MG TABLET PO SCH (10:42)
[2020-11-01] MEDS: EZETIMIBE 10 MG TAB PO SCH (10:42)
[2020-11-01] MEDS: ASPIRIN 81 MG CHEWABLE TABLET PO SCH (10:42)
[2020-11-01] MEDS: allopurinoL 100 MG TAB PO SCH (10:42)
[2020-11-01] MEDS: carvediloL 12.5 MG TAB PO SCH (10:42)
[2020-11-01] MEDS: CALCIUM CARB 500MG/VIT D 200 IU TAB PO SCH (10:42)
[2020-11-01] MEDS ORDERED: levoFLOXacin 250 MG TAB PO SCH (11:00)
--- NOTE | 2020-11-01 12:54 | PN ---
Date of Progress Note: 11/01/2020 Subjective: The patient was admitted with acute kidney injury secondary to cardiorenal/toxic ATN. T he patient was started on Lasix, did not response very well. The patient was placed on Lasix drip. The patient yesterday was altered mental status. We discontinued the Neurontin. The patient more aw airam today. Culture growing gram-negative aniket in the urine. Physical Examination: Vital Signs: Blood pressure 108/55, pulse of 73, afebrile. The patient had good urine output of 180 0, negative of 1100. Chest: Crackles bilateral. Heart: S1, S2. Systolic murmur. Abdomen: Soft, nontender. Extremities: No edema. Neurologic: Alert, oriented. No tremor. Laboratory Data: WBC 5, H and H 8.5/26.4. Sodium 135, potassium 4.2, bicarb 23, BUN 81, creatinine 5.5, calcium 8.9, phosphorus 4.9, iron saturation of 87, ferritin of 89. PTH of 280. TSH 0.3. Urin alysis, no significant WBC less than 5. Current Medications: The patient on include; 1.Aspirin. 2.Albuterol. 3.Eliquis. 4.IV iron. 5.Calcium carbonate. 6.Zetia. 7.Tylenol. 8.Sodium bicarb 650 b.i.d. 9.Lasix drip 10 mg daily. 10.Allopurinol. 11.Calcitriol. Assessment And Plan: 1.Acute kidney injury on advanced chronic kidney disease secondary to cardiorenal, over volume. I a m going to continue Lasix drip. We will get chest x-ray for better evaluation of the fluid status an d we will monitor the patient. 2.Hyponatremia, dilutional. Continue diuresis. 3.Hypertension, controlled, optimal. We will keep utilizing the blood pressure to establish better volume control. 4.Secondary hyperparathyroidism. Continue calcitriol. 5.Hyperkalemia, resolved. 6.Urinary tract infection. We will start the patient on Levaquin 250 every other day. 7.Altered mental status, multifactorial, secondary to toxic encephalopathy secondary to urinary trac t infection superimposed with Neurontin today. The patient more awake. We will continue to monitor. I had long discussion with the patient and family regarding the possible need for renal replacement therapy. The patient and family refusing any dialysis for the time being. We will respect family's wishes and we will continue to monitor. MAR Voice ID: [id number] Report ID: [id number]
--- NOTE | 2020-11-01 13:15 | RAD REPORT ---
EXAM DESCRIPTION: RAD - Chest Single View - 11/01/2020 12:55 pm CLINICAL HISTORY: COPD COMPARISON: Chest Single View dated 10/29/2020; Chest Single View dated 05/05/2020; Chest Single View d ated 05/04/2020; Chest Single View dated 10/10/2019 FINDINGS: Lines: None. Lungs: Diffuse prominence of the pulmonary interstitium. This is mildly improved since 10/29/2020 Pleural: No significant pleural effusions or pneumothorax. Cardiac: Similar cardiomegaly Bones: No acute fractures. Other: IMPRESSION: Mild improved aeration of the lungs likely reflecting resolving edema.
--- NOTE | 2020-11-01 14:38 | P.PN ---
Subjective Date of Service: 11/01/20 Chief Complaint: SOB, weakness Patient remain confused. Family by her bed side. Physical Examination - Vital Signs Temperature: 97.9 F Blood Pressure: 108/55 Pulse: 73 Respirations: 16 Pulse Ox (%): 94 - Physical Exam General: Confused Neck: JVD not distended Respiratory: Clear to auscultation bilaterally, Normal air movement Cardiovascular: No edema, Regular rate/rhythm, Normal S1 S2 Gastrointestinal: Soft and benign, Non-distended Musculoskeletal: No swelling Integumentary: No rashes Neurological: Other (Confused) Assessment And Plan - Current Problems (Diagnosis) (1) Acute on chronic diastolic heart failure Current Visit: No Status: Acute (2) Acute worsening of stage 3 chronic kidney disease Current Visit: No Status: Acute (3) Generalized weakness Current Visit: No Status: Acute (4) HTN (hypertension) Current Visit: No Status: Chronic - Plan Patient seen by nephrology and on Lasix drip. Overall no significant change in renal function. I suspect patient has uremic encephalopathy. Echocardiogram unremarkable. Cardiology input appreciated. Patient overall clinical condition is declining. Patient and family have declined hemodialysis and want to pursue hospice. Hospice consult placed. Continue current treatment for now. Physician Review: Patient Assessed, Agree with Above Assessment and Plan
[2020-11-01] MEDS: CEFTRIAXONE/SWI 1gm 1 GM/10 ML SYR IVP SCH (15:30)
[2020-11-02] MEDS: ALBUTEROL 2.5 MG/3 ML NEB SOL NEB SCH ×3 (02:20→15:05)
[2020-11-02] MEDS: IPRATROPIUM BROM 0.5MG/2.5ML NEB SCH ×3 (02:20→15:05)
[2020-11-02 06:01] LABS: Basophils % 0.3 % (0-1.3); Hematocrit 26.8 % (36.0-45.0); Lymphocytes % 16.7 % (15.3-44.8); MPV 8.4 fL (7.6-11.3); RBC Red Blood Cell Count 2.99 M/uL (3.86-4.86)
[2020-11-02 06:16] LABS: Phosphorus 4.3 mg/dL (2.5-4.9)
--- NOTE | 2020-11-02 08:35 | P.PN ---
Subjective Date of Service: 11/02/20 Chief Complaint: SOB, weakness Subjective: No new changes Physical Examination - Vital Signs Temperature: 98.6 F Blood Pressure: 126/58 Pulse: 90 Respirations: 19 Pulse Ox (%): 94 - Physical Exam General: Other (appears as her stated age) HEENT: Atraumatic, Normocephalic Neck: Supple, JVD not distended Respiratory: Other (symmetric chest expansion) Cardiovascular: No rubs, No murmurs Gastrointestinal: Soft and benign, Non-distended Musculoskeletal: No clubbing Integumentary: Other (Normal temperature) External genitalia: Deferred Rectal: Deferred Assessment And Plan - Plan # 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 # Htn continue current BP medication regimen # Anemia Hemoglobin 8.5 Received IV iron Give Epo subcu dosing today # Renal osteodystrophy Serum calcium and phosphorus at goal # Secondary hyperparathyroidism Serum intact PTH 280 Cont calcitriol # Dispo Dc plan to home on home hospice ongoing Physician Review: Patient Assessed, Agree with Above Assessment and Plan
[2020-11-02] MEDS: carvediloL 12.5 MG TAB PO SCH (09:00)
[2020-11-02] MEDS: ASPIRIN 81 MG CHEWABLE TABLET PO SCH (09:00)
[2020-11-02] MEDS: APIXABAN 2.5 MG TABLET PO SCH (09:00)
[2020-11-02] MEDS: CEFTRIAXONE/SWI 1gm 1 GM/10 ML SYR IVP SCH (09:00)
[2020-11-02] MEDS: SODIUM BICARB 325 MG TAB PO SCH (09:00)
[2020-11-02] MEDS: allopurinoL 100 MG TAB PO SCH (09:00)
[2020-11-02] MEDS: EZETIMIBE 10 MG TAB PO SCH (09:00)
[2020-11-02] MEDS: CALCIUM CARB 500MG/VIT D 200 IU TAB PO SCH (09:00)
[2020-11-02] MEDS: CALCITROL 0.25 MCG CAP PO SCH (11:55)
[2020-11-02] MEDS ORDERED: EPOETIN ALFA-EPBX 10,000 UNIT/ML VIAL SQ SCH (13:00)
[2020-11-02] MEDS ORDERED: SOD FERRIC GLUC COMPLX/SUCROSE 125 MG in NA CHLORIDE 0.9% 100 ML IV SCH (13:00)
[2020-11-02 13:03] VITALS: O2SAT 95
--- NOTE | 2020-11-02 15:19 | P.PN ---
Subjective Date of Service: 11/02/20 Chief Complaint: SOB, weakness Patient is more awake and interactive today. Family by her bed side. She has no complain. Physical Examination - Vital Signs Temperature: 97.6 F Blood Pressure: 129/60 Pulse: 66 Respirations: 16 Pulse Ox (%): 97 - Physical Exam General: Alert, Oriented x3 HEENT: Mucous membr. moist/pink Neck: JVD not distended Respiratory: Normal air movement, Other (Mild bibasilar rales) Cardiovascular: No edema, Regular rate/rhythm, Normal S1 S2 Gastrointestinal: Normal bowel sounds, Soft and benign, Non-distended Musculoskeletal: No swelling Integumentary: No rashes Neurological: Other (No focal motor deficit) Assessment And Plan - Current Problems (Diagnosis) (1) Acute on chronic diastolic heart failure Current Visit: No Status: Acute (2) Acute worsening of stage 3 chronic kidney disease Current Visit: No Status: Acute (3) Generalized weakness Current Visit: No Status: Acute (4) HTN (hypertension) Current Visit: No Status: Chronic - Plan Patient on Lasix drip per nephrology. No improvement in serum creatinine. It appears her respiratory status has improved. Mental status has also improved. Echocardiogram unremarkable. Cardiology input appreciated. Patient and family have declined hemodialysis and want to pursue hospice. Hospice to evaluate. Repeat chest x-ray to evaluate for improvement in the pulmonary edema. Physician Review: Patient Assessed, Agree with Above Assessment and Plan
--- NOTE | 2020-11-02 16:45 | RAD REPORT ---
EXAM DESCRIPTION: RAD - Chest Single View - 11/02/2020 4:15 pm CLINICAL HISTORY: Follow up pulmonary edema. COMPARISON: November 01 TECHNIQUE: AP portable chest image was obtained 11/02/2020 4:15 pm . FINDINGS: Lung volumes are low. Patient is rotated on this examination. Interstitial and alveolar op acification are noted showing no improvement from the prior day study. Cardiomegaly and vascular engo rgement remain. Trachea is in the midline. No measurable pleural effusion and no pneumothorax. IMPRESSION: Cardiomegaly, vascular engorgement and lung parenchymal opacification show no further im provement from the prior day study.
[2020-11-02 20:51] VITALS: BP 126/58; TEMP 98.6
[2020-11-03 16:12] LABS: Hepatitis C Virus RNA (PCR)log <1.18 log IU/mL
[2020-11-04 06:34] LABS: Beta Globulin 24 HR Urine 13 %; Gamma Globulin, 24hr Urine 13 %; Interpretation: REPORT; Protein/Crea Ratio in g 778 mg/g creat (<=114); Protein/Crea Ratio in mg 0.778 (<=0.114); Urine Alpha-2-Globulins, 24 Hr 9 %; Urine PEP Abn Protein Band1 REPORT; Urine Total Volume 24 Hours 2200 mL
[2020-11-07 09:34] LABS: Vitamin D 1,25-Dihydroxy Total 22 pg/mL (18-72); Vitamin D,1,25-OH2, D2 10 pg/mL
[2020-11-08 03:34] LABS: HBsAG Nonreactive (Nonreactive)
[2020-11-14 04:40] LABS: Albumin, (SPE) 3.5 g/dL (3.8-4.8); Alpha-1-Globulins 0.5 g/dL (0.2-0.3); Alpha-2-Globulins 1.1 g/dL (0.5-0.9); Gamma Globulins 0.8 g/dL (0.8-1.7); INTERPRETATION REPORT
== END 2020-11-02 20:29 | disposition hospice, home (50) | DRG 291 ==
LOC: ER 12:40 → ERHOLD 17:17 → 2ND 23:02
PROVIDERS: ADMIT Hospitalist; ATTEND Hospitalist
DX: I13.2 Hypertensive heart and chronic kidney disease with heart failure and with stage 5 chronic kidney disease, or end stage renal disease (principal); N17.0 Acute kidney failure with tubular necrosis; I50.33 Acute on chronic diastolic (congestive) heart failure; G92 Toxic encephalopathy; N18.6 End stage renal disease; N39.0 Urinary tract infection, site not specified; E87.1 Hypo-osmolality and hyponatremia; E87.2 Acidosis; N25.81 Secondary hyperparathyroidism of renal origin; N25.0 Renal osteodystrophy; B96.20 Unspecified Escherichia coli [E. coli] as the cause of diseases classified elsewhere; R01.1 Cardiac murmur, unspecified; E87.5 Hyperkalemia; D50.9 Iron deficiency anemia, unspecified; M10.9 Gout, unspecified; E78.5 Hyperlipidemia, unspecified; I48.0 Paroxysmal atrial fibrillation; E66.9 Obesity, unspecified; Z68.28 Body mass index [BMI] 28.0-28.9, adult; Z20.822 Contact with and (suspected) exposure to COVID-19
CPT/HCPCS: 36415; 70450; 71045; 76770; 80048; 80069; 80076; 81001; 81003; 81015; 82570; 82607; 82652; 82728; 82746; 83540; 83735; 83880; 83970; 84100; 84156; 84165; 84166; 84439; 84443; 84466; 84484; 84550; 85025; 85044; 85610; 86317; 86334; 86704; 86706; 87040; 87077; 87086; 87088; 87186; 87340; 87522; 93005; 93306; 94640; 97110; 97116; 97161; 97530; 99285; J0696; J1644; J1940; J2916; J7040; J7050; Q5106; U0003